=== PATIENT | female | born 1940 | race Caucasian/White ===

== ENCOUNTER → 2024-07-31 | Outpatient (CLI) | payer MEDICARE, BC, SELFPAY ==
[2024-07-31 11:09] LABS: Collection Type, Urine Clean Catch
[2024-07-31 11:31] LABS: Basophils # (Auto) 0.1 Thou/mm3 (0.0-0.2); Basophils % (Auto) 1 % (0-2.5); Eosinophils # (Auto) 0.4 Thou/mm3 (0.0-0.5); Eosinophils % (Auto) 6 % (0-10); Hematocrit 35.9 % (36.0-46.0); Hemoglobin 11.6 g/dL (12.0-16.0); Immature Granulocytes % (Auto) 1 % (0-0); Immature Granulocytes Auto 0.05 Thou/mm3 (0.00-0.00); Lymphocytes # (Auto) 1.1 Thou/mm3 (1.0-4.8); Lymphocytes % (Auto) 18 % (10-50); Mean Corpuscular HGB Conc 32.3 g/dl (31.0-37.0); Mean Corpuscular Hemoglobin 34.9 pg (25.0-35.0); Mean Corpuscular Volume 108 fL (80-100); Monocytes # (Auto) 0.9 Thou/mm3 (0.0-0.8); Monocytes % (Auto) 15 % (0-12); Neutrophils # (Auto) 3.6 Thou/mm3 (1.8-7.7); Neutrophils % (Auto) 59 % (37-80); Nucleated Red Blood Cell % 0 /100 WBC (0); Platelet Count 170 Thou/mm3 (140-440); RDW Standard Deviation 72.1 fL (36.4-46.3); Red Blood Count 3.32 Miln/mm3 (4.00-5.20); White Blood Count 6.1 Thou/mm3 (3.6-11.0)
[2024-07-31 11:37] LABS: Bilirubin,Urine Negative (Negative); Blood,Urine Negative (Negative); Clarity,Urine Clear (Clear/Hazy); Color,Urine Yellow (Lt Yel-Yel); Culture Indicated,Urine Not Indicated; Glucose, Urine Negative (Negative); Ketones,Urine Negative (Negative); Leukocyte Esterase,Urine Negative (Negative); Nitrite,Urine Negative (Negative); PH,Urine 8.5 (5.0-7.0); Protein,Urine 3+ (Neg - Trace); RBC,Urine < 1 /hpf (0-3); Specific Gravity,Urine 1.016 (1.001-1.035); Squamous Epithelial Cell,Urine 12 /hpf (0-5); Urobilinogen,Urine Negative mg/dL (0.0-1.0); WBC,Urine 7 /hpf (0-5)
[2024-07-31 12:04] LABS: Alanine Aminotransferase 8 U/L (10-49); Albumin, Serum 4.1 gm/dL (3.4-4.8); Albumin/Globulin Ratio 1.9 (1.2-2.2); Alkaline Phosphatase 143 U/L (46-116); Anion Gap 10 (7-16); Aspartate Amino Transferase 15 U/L (0-34); BUN/Creatinine Ratio 9 Ratio (12-20); Bilirubin,Total 0.3 mg/dL (0.3-1.2); Blood Urea Nitrogen 29 mg/dL (9-23); Calcium 8.9 mg/dL (8.3-10.6); Calcium (Corrected) 8.9 mg/dL (8.5-10.1); Carbon Dioxide 28.9 mMol/L (20.0-31.0); Cardiac Risk Estimate 3.7 RATIO (3.7-5.6); Chloride 101 mMol/L (98-107); Cholesterol 194 mg/dL (132-200); Creatinine (Component) 3.2 mg/dL (0.6-1.3); Free T4 (Free Thyroxine) 0.99 ng/dL (0.89-1.76); Globulin 2.2 gm/dL (2.3-3.5); Glucose 82 mg/dL (74-106); HDL Cholesterol 52 mg/dL (40-60); LDL Cholesterol,Calculated 113 mg/dL (0-130); Osmolality,Calculated 284 (275-295); Sodium 140 mMol/L (136-145); Thyroid Stimulating Hormone 4.95 uIU/mL (0.55-4.78); Total Protein 6.3 gm/dL (5.7-8.2); Triglycerides 144 mg/dL (30-150); eGFR 14 See Note
== END | disposition home or self-care (01) ==
LOC: COPL 10:16
PROVIDERS: PCP Internal Medicine; Referring Provider Internal Medicine; Visit Provider Internal Medicine
DX: I10 Essential (primary) hypertension (principal)
CPT/HCPCS: 36415; 80053; 80061; 81001; 84439; 84443; 85025

== ENCOUNTER 2024-09-15 18:01 | Inpatient (IN) | payer MEDICARE, BC, SELFPAY ==
[2024-09-15 18:02] VITALS: BP 182/72; PULSE 86; RESP 17; RESP 20; TEMP 36.9; O2SAT 96; O2SAT 97; BMI 24.8
--- NOTE | 2024-09-15 18:03 | XR_ITS ---
Examination: CT pelvis without intravenous contrast. 2-D sagittal and coronal reconstructions. Date and time of exam:September 15, 2024 at 1858 hours INDICATIONS: Patient fell today with injury to the right hip, right hip pain CTDI: vol (mGy) :5.96 DLP: (mGycm) : 176 Technique: Multiple 3 mm axial sections of the pelvis have been obtained with the 64 slice high resolution scanner. 2-D sagittal and coronal reconstructions. Low dose protocols were performed. One or more of the following dose reduction techniques were used; automated exposure control, adjustment of the mA and/or KV according to patient size, use of iterative reconstruction technique. Findings: Severe osteopenia Iliac bones acetabular region anterior rami intact Acute fractures greater trochanter right hip without obvious extension to the intertrochanteric region Urinary bladder is contracted No pelvic hematoma IMPRESSION: Acute fractures greater trochanter right hip No definite intertrochanteric extension, however, MRI right hip without contrast follow-up would best exclude intertrochanteric extension of the right hip fractures
--- NOTE | 2024-09-15 18:03 | XR_ITS ---
Examination: AP chest supine portable single view TECHNIQUE: Supine AP portable chest single view Date and time: September 15, 2024 1935 hours Comparison March 05, 2024 INDICATIONS: Patient fell today with injury of the chest, chest pain hip pain FINDINGS: Subsegmental atelectasis left base Normal heart size No pneumothorax Severe osteopenia IMPRESSION: No pneumothorax or pulmonary contusion
--- NOTE | 2024-09-15 18:03 | XR_ITS ---
Examination:Right hip AP, lateral, AP pelvis 3 views Technique: Hip AP lateral, AP pelvis, 3 views Exam date and time:September 15, 2024 at 1926 hours INDICATIONS: Patient fell today with injury to the right hip, right hip pain. FINDINGS: Acute fractures greater trochanteric region right hip No hip dislocation Radiolucency overlies intertrochanteric region left hip although on the CT examination today no left intertrochanteric fracture is depicted IMPRESSION: Acute fractures greater trochanter right hip MRI right hip without contrast follow-up would best exclude intertrochanteric extension of these right hip fracture.
--- NOTE | 2024-09-15 18:03 | EKG_ITS ---
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
--- NOTE | 2024-09-15 18:03 | XR_ITS ---
Examination: CT brain head without contrast. 2-D sagittal coronal reconstructions Date and time of exam:September 15, 2024 1851 hours INDICATIONS: Right-sided head and facial pain after falling today COMPARISON: March 06, 2024 CTDI: vol (mGy):47.7 DLP: (mGycm):949 Technique: Multiple CT axial sections of the brain have been obtained, 5 mm slice thickness. Contrast has not been administered. 2-D sagittal, coronal reconstructions have been obtained Low dose protocols were performed. One or more of the following dose reduction techniques were used; automated exposure control, adjustment of the mA and/or KV according to patient size, use of iterative reconstruction technique. Findings: No significant ventricular enlargement. 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 No mass effect or midline shift Basal cisterns are not remarkable. Fourth ventricle is midline. Cranial vault intact. Impression: Negative for acute hemorrhage, mass effect or midline shift
--- NOTE | 2024-09-15 18:03 | XR_ITS ---
Examination: CT cervical spine without contrast 2-D sagittal reconstructions 2-D coronal reconstructions 3-D reconstructions. Exam date and time:September 15, 2024 1841 hours INDICATION: Patient fell today with injuries and neck, neck pain CTDI:vol (mGy) 12.5 DLP: (mGycm) 259 Technique: Multiple 2 mm axial sections of the cervical spine have been obtained. The coronal and sagittal reconstructions have been obtained. 3-D reconstructions have been obtained. Low dose protocols were performed. One or more of the following dose reduction techniques were used; automated exposure control, adjustment of the mA and/or KV according to patient size, use of iterative reconstruction technique. Findings: Axial sections demonstrate intact base of the skull. C1 exhibit satisfactory relationship to the odontoid. No acute cervical vertebral body fracture seen. Alignment posterior spinous processes satisfactory. Impression: No acute cervical fracture.
--- NOTE | 2024-09-15 18:06 | PD.EDADULT ---
ED General RME/HPI General Chief complaint: Fall Stated complaint: FALL Time Seen by Provider: 09/15/24 18:02 Arrival date/time: 09/15/24 18:01 CC: Right hip pain right face pain HPI after ground level fall approximately 30 minutes ago patient does take a baby aspirin. Patient states she pivoted in the kitchen and promptly fell denies LOC states she lost her balance. Patient is on dialysis Monday and Monday Dr Ramirez is her preparer making department Dr. Walker her mounter flutes and piccolos. Patient is awake alert oriented localized pain in the hip is a 2 when at rest and a 10 when attempting to flex her knee. EMS report hypertension otherwise vital signs are stable. Related Data Home Medications ?Medication ?Instructions ?Recorded ?Confirmed allopurinol 100 mg tablet 100 mg PO QDAY #0 tabs 09/13/13 03/05/24 (Zyloprim) amlodipine 5 mg tablet (Norvasc) 10 mg PO QDAY #0 tabs 09/13/13 03/05/24 fluticasone propionate 50 2 spray NASAL BID ##0 09/13/13 03/05/24 mcg/actuation nasal spray,suspension montelukast 10 mg tablet 10 mg PO QAM #0 tabs 09/13/13 03/05/24 (Singulair) primidone 50 mg tablet 250 mg PO QDAY #0 tabs 09/13/13 03/05/24 losartan 100 mg tablet 100 mg PO QDAY 02/22/19 03/05/24 Held on 03/06/24. Instructions: Resume on 03/20/24. hold until see her PCP alirocumab 75 mg/mL subcutaneous 75 mg subcut UD 08/19/22 03/05/24 pen injector (Praluent Pen) aspirin 81 mg tablet,delayed 81 mg PO QDAY 08/19/22 03/05/24 release vortioxetine 20 mg tablet 20 mg PO QDAY 08/19/22 03/05/24 (Trintellix) hydralazine 50 mg tablet 50 mg PO BID 09/12/22 03/05/24 Held on 03/06/24. Instructions: Resume on 03/20/24. hold until see her PCP carvedilol 25 mg tablet 25 mg PO BID 03/05/24 03/05/24 Allergies Allergy/AdvReac Type Severity Reaction Status Date / Time atorvastatin (From Lipitor) Allergy Severe Swelling Verified 09/15/24 18:07 of Lip/Tongue/Throat cefuroxime Allergy Severe RASH/ Verified 09/15/24 18:07 DIARRHEA cephalexin Allergy Severe RASH/NAUSEA Verified 09/15/24 18:07 /VOMITING Cephalosporins Allergy Severe Rash Verified 09/15/24 18:07 ciprofloxacin Allergy Severe Rash Verified 09/15/24 18:07 erythromycin base Allergy Severe Rash Verified 09/15/24 18:07 nitrofurantoin Allergy Severe Rash Verified 09/15/24 18:07 Penicillins Allergy Severe Rash Verified 09/15/24 18:07 Sulfa (Sulfonamide Allergy Severe Rash Verified 09/15/24 18:07 Antibiotics) NITRATE Allergy Severe Rash Uncoded 09/15/24 18:07 Review of Systems Review of Systems Narrative Review of Systems: GEN: No fever, no chills, no weight loss EYES: No discharge, no visual changes, no pain HEENT: No ear pain, no congestion, no sore throat PULM: No shortness of breath, no cough, no congestion CV: No chest pain, no dyspnea on exertion, no palpitations GI: No nausea, no vomiting, no diarrhea, no pain, no constipation : No frequency, no urgency, no dysuria MUSC/SKEL: + joint pain, no back pain SKIN: No rash PSYCH: No hallucinations, no depression HEME/LYMPH: No easy bleeding or bruising tendencies NEURO: No weakness, no headache Past Medical History Past Medical History NEUROLOGIC: Positive Neurological Disorders (benign tremor) and Transient Ischemic Attacks (TIA); Negative Seizures CARDIAC: Positive Cardiac Disorders, Hypercholesterolemia, Congestive Heart Failure, Valvular Heart Disease and Hypertension RESPIRATORY: Negative Chronic Obstructive Pulmonary Disease (COPD) GASTROINTESTINAL: Positive Gastrointestinal Disorders, Gall Bladder Disease, Colitis and Hiatal Hernia GENITOURINARY: Positive Genitourinary Disorders, Renal Disease and Dialysis (--MON) REPRODUCTIVE: Positive Previous Pregnancies; Negative Pelvic Inflammatory Disease MUSCULOSKELETAL: Positive Musculoskeletal Disorders, Arthritis and Gout ENDOCRINE: Negative Endocrine Disorders, Diabetes Mellitus Type 1 or Diabetes Mellitus Type 2 HEMATOLOGIC: Positive Anemia; Negative Blood Disorders PSYCHO/SOCIAL: Positive Depression and Anxiety OTHER HISTORY: Positive Hospitalization, Shingles, Falls, Chicken Pox, Measles and Mumps; Negative Autoimmune Disease, Blood Transfusions, Blood Transfusion Reaction, Anesthesia Reactions, MRSA, VRSA, Vancomycin-Resistant Enterococci, Clostridium Difficile or Cancer Family History FAMILY HISTORY: Positive Family Respiratory Disorders, Family Cardiac Disorders and Family Cancer Surgical History SURGICAL: Positive Ear Surgery, Tonsillectomy and Hysterectomy Social History SMOKING STATUS: Never smoker SUBSTANCE USE: does not use ED Exam Narrative Physical exam: [General: Frail but not deconditioned, in moderate discomfort but not in any acute distress Head normocephalic, no step-offs hematomas induration ulceration or crepitus. HEENT: Face: Patient has ecchymosis with hematomas to the right cheek, right lateral eyebrow. Eyes pupils are PERRLA EOMs are intact mouth pink dry membranes uvula is midline swallow symmetrical phonation is normal. All other subsystems of HEENT are within acceptable limits Neck is supple nontender no JVD no edema Chest equal chest rise nontender to palpation Respiratory: Clear to auscultation no wheezes crackles or rubs CV: Rate rhythm is regular no murmurs rubs or clicks Abdomen is soft nontender no masses positive bowel sounds all 4 quadrants Back initially unable to assess secondary to being in a supine position Skin: Ecchymosis with hematomas to the right side of the face as described above. minor abrasions to the face. Otherwise skin is intact no petechiae rash induration ulceration or crepitus Extremities: Moving upper, and lower extremity without complication. Decreased range of motion of the right lower extremity secondary to pain in the hip. Neuro: Awake alert oriented x2, person and place. Glascow coma 15 no focal deficits] Course Course Course Narrative: Patient's case discussed with Dr. Goss, orthopedic surgeon, who assessed the patient in the emergency room and would like to get an MRI on the patient in the morning for rule out intratrochanteric or femoral neck involvement. Patient's case discussed with Dr. Marcial, resident for Dr. Beckman, who agrees accept the patient for admission. Admission diagnosis R fall hip fracture UTI Quality Measures none Orders Category Date Time Status Admit to Inpatient Status Routine Admission 09/15/24 21:28 Active Patient Condition Routine Admission 09/15/24 21:29 Ordered COVID-19 Screening Questionnaire NOW Care 09/15/24 21:07 Active EKG (ED ONLY) *Do not use* NOW Care 09/15/24 18:03 Completed Intake and Output QSHIFT Care 09/15/24 21:30 Ordered MRI Screening NOW Care 09/15/24 20:41 Active Miscellaneous Nursing Order NOW Care 09/15/24 20:47 Active Miscellaneous Nursing Order NOW Care 09/15/24 21:29 Active Notify provider NEEDED Care 09/15/24 21:29 Active Obtain weight NOW Care 09/15/24 21:29 Active Saline [Insert IV] NOW Care 09/15/24 18:05 Active Sequential Compression Device QSHIFT Care 09/15/24 21:29 Active Consult to Nephrology Routine Cons 09/15/24 21:57 Ordered Consult to Orthopedic Stat Cons 09/15/24 20:43 Ordered Referral Physical Therapy Routine Cons 09/15/24 21:29 Active Referral Physical Therapy Stat Cons 09/15/24 20:[address] cervical spine wo con Stat Exams 09/15/24 18:[address] facial bones wo con Stat Exams 09/15/24 18:[address] head/brain wo con Stat Exams 09/15/24 18:[address] pelvis wo con Stat Exams 09/15/24 18:03 Completed EKG (ED Only) Stat Exams 09/15/24 18:03 Draft MR pelvis wo con Stat Exams 09/15/24 Ordered XR chest 1V Stat Exams 09/15/24 18:03 Completed XR hip RT w pelvis 2-3V Stat Exams 09/15/24 18:03 Completed B-Type Natriuretic Peptide Stat Lab 09/15/24 18:27 Completed Basic Metabolic Panel AM DRAW Lab 09/16/24 05:00 Ordered Basic Metabolic Panel AM DRAW Lab 09/17/24 05:00 Ordered Basic Metabolic Panel AM DRAW Lab 09/18/24 05:00 Ordered CBC AM DRAW Lab 09/16/24 05:00 Ordered CBC AM DRAW Lab 09/17/24 05:00 Ordered CBC AM DRAW Lab 09/18/24 05:00 Ordered CBC Stat Lab 09/15/24 18:27 Completed Comprehensive Metabolic Panel Stat Lab 09/15/24 18:27 Completed Drug Screen,Urine Stat Lab 09/15/24 18:50 Completed LDH (Lactate Dehydrogenase) Stat Lab 09/15/24 18:27 Completed Lipid Panel AM DRAW Lab 09/16/24 05:00 Ordered Liver Panel AM DRAW Lab 09/16/24 05:00 Ordered MRSA Nasal Screen Stat Lab 09/15/24 21:29 Ordered Magnesium AM DRAW Lab 09/16/24 05:00 Ordered Magnesium Stat Lab 09/15/24 18:27 Completed Partial Thromboplastin Time Stat Lab 09/15/24 18:27 Completed Phosphorous AM DRAW Lab 09/16/24 05:00 Ordered Prothrombin Time with INR AM DRAW Lab 09/16/24 05:00 Ordered Prothrombin Time with INR Stat Lab 09/15/24 18:27 Completed Thyroid Stimulating Hormone AM DRAW Lab 09/16/24 05:00 Ordered Troponin I Stat Lab 09/15/24 18:27 Completed Urinalysis Routine Lab 09/15/24 21:29 Ordered Urinalysis Stat Lab 09/15/24 18:50 Completed Acetaminophen Tab [Tylenol Tab] Med 09/15/24 21:28 Active 650 mg PO Q6H PRN Famotidine Inj [Pepcid Inj] Med 09/16/24 09:00 Active 20 mg IVP DAILY Heparin Inj Med 09/15/24 22:00 Active 5,000 unit SC Q8HR Morphine Inj Med 09/15/24 21:31 Active 4 mg IVP Q4HR PRN Morphine Inj Med 09/15/24 19:17 Discontinued 4 mg IVP X1 ONE Ondansetron Inj [Zofran Inj] Med 09/15/24 21:28 Active 4 mg IV Q6H PRN Ondansetron Inj [Zofran Inj] Med 09/15/24 19:17 Discontinued 4 mg IV X1 ONE Primidone [Mysoline] Med 09/16/24 09:00 Active 250 mg PO QDAY Senna [Senokot] Med 09/15/24 21:28 Active 2 tab PO BID PRN allopurinoL [Zyloprim] Med 09/16/24 09:00 Active 100 mg PO QDAY amLODIPine BESYLATE [Norvasc] Med 09/16/24 09:00 Active 10 mg PO QDAY carVEDILOL [Coreg] Med 09/16/24 09:00 Discontinued 25 mg PO BID carVEDILOL [Coreg] Med 09/16/24 21:52 Active 25 mg PO BID fentaNYL INJ [Sublimaze Inj] Med 09/15/24 18:05 Discontinued 50 mcg IVP X1 ONE hydrALAZINE HCL [Apresoline] Med 09/16/24 09:00 Discontinued 50 mg PO BID hydrALAZINE HCL [Apresoline] Med 09/16/24 21:52 Active 50 mg PO BID Code Status Routine Oth 09/15/24 21:28 Ordered Oxygen Delivery DAILY RT 09/15/24 21:29 Active Vital Signs Vital signs: Vital Signs Temperature 98.4 F 09/15/24 18:02 Pulse Rate 86 09/15/24 18:02 Respiratory Rate 17 09/15/24 18:02 Blood Pressure 182/72 H 09/15/24 18:02 Pulse Oximetry (%) 97 09/15/24 18:02 Oxygen Delivery Method Room Air 09/15/24 18:02 Discharge Plan Plan Patient Disposition: Other Care w/in Hosp (SDC/MI) Patient condition on transfer: Stable Prescriptions/Referrals Prescriptions/Med Rec: No Action primidone 50 MG tablet 250 mg PO QDAY Qty: 0 Rx Instructions: 100MG X1 IN AM, X2 IN THE PM amlodipine [Norvasc] 5 MG tablet 10 mg PO QDAY Qty: 0 allopurinol [Zyloprim] 100 MG tablet 100 mg PO QDAY Qty: 0 montelukast [Singulair] 10 MG tablet 10 mg PO QAM Qty: 0 fluticasone propionate 50 mcg/actuation [place],Suspension 2 spray NASAL BID Qty: 0 Rx Instructions: 2 SPRAYS AT NIGHT losartan 100 mg Tablet 100 mg PO QDAY hydralazine 50 mg tablet 50 mg PO BID Rx Instructions: Only on the mornings when she does not go to dialysis. Trintellix 20 mg tablet 20 mg PO QDAY Patient Comments: TAKE 1 TABLET BY MOUTH EVERY DAY aspirin 81 mg Tablet,Delayed Release (Dr/Ec) 81 mg PO QDAY Praluent Pen 75 mg/mL pen injector 75 mg SUBCUT UD Patient Comments: INJECT 1 DOSE UNDER THE SKIN EVERY 2 WEEKS Rx Instructions: Every two weeks carvedilol 25 mg Tablet 25 mg PO BID Rx Instructions: must administer with a meal/food Referrals: No Primary/Family,Physician [Primary Care Provider] - In 1 week Problem List Clinical Impression: Hip fracture, Urinary tract infection, Fall, Contusion of face Patient/Caregiver Discharge Instructions Print Language: Khmer Stand Alone Forms: Adri Award Info., Patient Portal Info Letter MDM Clinical Information Provided by: patient and EMS Medical Records reviewed [facility] Meds/Rx considered, not ordered None Labs/Rad/Tests considered, not ordered None Chronic Illness/Social Conditions Explain: ESRD hypertension dialysis Monday Labs Labs: interpreted by me Lab(s) Interpretation(s): CBC shows no acute leukocytosis anemia thrombocytopenia Coags within acceptable notes CMP shows sodium 134 BUN of 27 creatinine 4.2 glucose 105 no other electrolyte imbalances, no transaminitis or T. bili elevation Troponin is negative BNP is 273 Urine is turbid 3+ protein 392 WBC 6 RBCs 2+ bacteria leukocyte Estrace positive nitrites negative. UDS is positive for bit barbiturates. Imaging Imaging interpretation: interpreted by me Imaging Interpretation(s): CT of the pelvis and x-ray of the pelvis show a trochanteric fracture unconfirmed as to whether this is intertrochanteric. I discussed this with Dr. Goss who agrees patient is an MRI in the morning confirmed that there is no intertrochanteric or femoral neck fracture. CT of the head C-spine and face are negative for any acute findings that require emergent or immediate intervention as interpreted by me read by radiology. Chest x-ray is negative as interpreted by me read by radiology. Medication Administration(s) Medication Administration History Acetaminophen (Acetaminophen 325 Mg Tablet) 650 mg PO Q6H PRN PRN Reason: PAIN OR FEVER > 101 Stop: 10/15/24 21:27 Allopurinol (Allopurinol 100 Mg Tablet) 100 mg PO QDAY CALEB Stop: 10/16/24 08:59 Amlodipine Besylate (Amlodipine Besylate 5 Mg Tablet) 10 mg PO QDAY CALEB Stop: 10/16/24 08:59 Carvedilol (Carvedilol 12.5 Mg Tablet) 25 mg PO BID CALEB Stop: 10/16/24 21:51 Famotidine (Famotidine Inj 10 Mg/Ml Vial 2 Ml) 20 mg IVP DAILY CALEB Stop: 10/16/24 08:59 Heparin Sodium (Porcine) (Heparin Sod Inj 5000 Unit/Ml Vial) 5,000 unit SC Q8HR CALEB Stop: 09/29/24 21:59 Last Admin: 09/15/24 21:52 Dose: 5,000 unit Documented By: CB Co-signed By: JAIDEN Hydralazine HCl (Hydralazine Hcl 25 Mg Tablet) 50 mg PO BID [facility] Stop: 10/16/24 21:51 Morphine Sulfate (Morphine Sulf Inj 10 Mg/Ml Vial) 4 mg IVP Q4HR PRN PRN Reason: PAIN SCALE 4-10(Mod-Sev Last Admin: 09/15/24 21:52 Dose: 4 mg Documented By: IKKI Ondansetron HCl (Ondansetron Inj 2 Mg/Ml Inj 2 Ml) 4 mg IV Q6H PRN; Protocol PRN Reason: NAUSEA OR VOMITING Stop: 10/15/24 21:27 Last Admin: 09/15/24 21:53 Dose: 4 mg Documented By: KIKI Primidone (Primidone 50 Mg Tablet) 250 mg PO QDAY [facility] Stop: 09/21/24 08:59 Sennosides (Senna Tablet) 2 tab PO BID PRN; Protocol PRN Reason: CONSTIPATION Stop: 10/15/24 21:27 Discontinued Medications Carvedilol (Carvedilol 12.5 Mg Tablet) 25 mg PO BID [facility] Stop: 10/16/24 08:59 Fentanyl Citrate (Fentanyl Cit Inj 50 Mcg/Ml Amp 2ml) 50 mcg IVP X1 ONE Stop: 09/15/24 18:06 Last Admin: 09/15/24 18:35 Dose: 50 mcg Documented By: MILLER Hydralazine HCl (Hydralazine Hcl 25 Mg Tablet) 50 mg PO BID [facility] Stop: 10/16/24 08:59 Morphine Sulfate (Morphine Sulf Inj 10 Mg/Ml Vial) 4 mg IVP X1 ONE Stop: 09/15/24 19:18 Last Admin: 09/15/24 19:30 Dose: 4 mg Documented By: MILLER Ondansetron HCl (Ondansetron Inj 2 Mg/Ml Inj 2 Ml) 4 mg IV X1 ONE; Protocol Stop: 09/15/24 19:18 Last Admin: 09/15/24 19:27 Dose: 4 mg Documented By: MILLER
--- NOTE | 2024-09-15 18:30 | XR_ITS ---
Examination: CT maxillofacial, without intravenous contrast. 2-D sagittal reconstructions. 3-D reconstructions. Date and time of exam:September 15, 2024 1845 hours INDICATIONS: Patient fell today with injury of the face, facial pain CTDI: vol (mGy):19 DLP: (mGycm):368 Technique: Multiple axial images of maxillofacial region, 3.0 mm slice thickness. 2-D sagittal and coronal reconstructions. 3-D reconstructions. Low dose protocols were performed. One or more of the following dose reduction techniques were used; automated exposure control, adjustment of the mA and/or KV according to patient size, use of iterative reconstruction technique. Findings: Frontal bone is intact Orbital rims intact No depression zygomatic arches No nasal bone fracture Pterygoid plates maxilla and mandible are intact Small exostoses off the anterior internal right body of the mandible axial image 34. IMPRESSION: No acute facial fracture
[2024-09-15 18:33] LABS: Basophils # (Auto) 0.1 Thou/mm3 (0.0-0.2); Basophils % (Auto) 1 % (0-2.5); Eosinophils # (Auto) 0.4 Thou/mm3 (0.0-0.5); Eosinophils % (Auto) 4 % (0-10); Hematocrit 39.3 % (36.0-46.0); Hemoglobin 13.4 g/dL (12.0-16.0); Immature Granulocytes % (Auto) 1 % (0-0); Immature Granulocytes Auto 0.06 Thou/mm3 (0.00-0.00); Lymphocytes # (Auto) 1.4 Thou/mm3 (1.0-4.8); Lymphocytes % (Auto) 16 % (10-50); Mean Corpuscular HGB Conc 34.1 g/dl (31.0-37.0); Mean Corpuscular Hemoglobin 35.4 pg (25.0-35.0); Mean Corpuscular Volume 104 fL (80-100); Monocytes # (Auto) 1.1 Thou/mm3 (0.0-0.8); Monocytes % (Auto) 12 % (0-12); Neutrophils % (Auto) 67 % (37-80); Nucleated Red Blood Cell % 0 /100 WBC (0); Platelet Count 143 Thou/mm3 (140-440); RDW Standard Deviation 61.2 fL (36.4-46.3); Red Blood Count 3.78 Miln/mm3 (4.00-5.20); White Blood Count 8.9 Thou/mm3 (3.6-11.0)
[2024-09-15] MEDS: fentaNYL CIT INJ 50 mCg/ML AMP 2ML IVP (18:35)
[2024-09-15 18:48] LABS: Partial Thromboplastin Time 29.9 Seconds (22.0-36.0); Prothrombin Time 11.2 Seconds (9.0-12.2)
[2024-09-15 18:52] LABS: B-Type Natriuretic Peptide 273 pg/mL (0-100)
[2024-09-15 18:54] LABS: Collection Type, Urine Clean Catch
[2024-09-15] MEDS: ONDANSETRON INJ 2 MG/ML INJ 2 ML 4 MG IV ×2 (19:27→21:53)
[2024-09-15] MEDS: MORPHINE SULF INJ 10 MG/ML VIAL 4 MG IVP ×2 (19:30→21:52)
[2024-09-15 19:40] LABS: Amphetamine/Methamp Scrn,U Negative (Negative); Bacteria,Urine 2+; Barbiturate Screen,Urine Positive (Negative); Benzodiazepines Screen,Urine Negative (Negative); Benzoylecgonine Screen, Ur Negative (Negative); Bilirubin,Urine Negative (Negative); Blood,Urine Trace (Negative); Color,Urine Yellow (Lt Yel-Yel); Fentanyl Screen,Urine Negative (Negative); Glucose, Urine Negative (Negative); Hyaline Casts,Urine < 1 /hpf (0-1); Ketones,Urine Negative (Negative); Leukocyte Esterase,Urine Positive (Negative); Nitrite,Urine Negative (Negative); Opiate Screen,Urine Negative (Negative); PH,Urine 6.5 (5.0-7.0); Protein,Urine 3+ (Neg - Trace); RBC,Urine 6 /hpf (0-3); Specific Gravity,Urine 1.018 (1.001-1.035); Squamous Epithelial Cell,Urine 3 /hpf (0-5); THC Screen,Urine Negative (Negative); WBC,Urine 392 /hpf (0-5)
[2024-09-15 19:41] LABS: Clarity,Urine Turbid (Clear/Hazy)
[2024-09-15 19:42] LABS: Alanine Aminotransferase 12 U/L (10-49); Albumin, Serum 4.3 gm/dL (3.4-4.8); Albumin/Globulin Ratio 1.8 (1.2-2.2); Alkaline Phosphatase 147 U/L (46-116); Anion Gap 10 (7-16); Aspartate Amino Transferase 19 U/L (0-34); BUN/Creatinine Ratio 6 Ratio (12-20); Bilirubin,Total 0.3 mg/dL (0.3-1.2); Blood Urea Nitrogen 27 mg/dL (9-23); Calcium 9.3 mg/dL (8.3-10.6); Calcium (Corrected) 9.3 mg/dL (8.5-10.1); Chloride 98 mMol/L (98-107); Creatinine (Component) 4.2 mg/dL (0.6-1.3); Estimated Creatinine Clearance 7.5 mL/min (>60); Globulin 2.4 gm/dL (2.3-3.5); Glucose 105 mg/dL (74-106); LDH (Lactate Dehydrogenase) 237 U/L (120-246); Magnesium 1.9 mg/dL (1.6-2.6); Osmolality,Calculated 273 (275-295); Potassium 3.6 mMol/L (3.4-5.1); Sodium 134 mMol/L (136-145); Total Protein 6.7 gm/dL (5.7-8.2); Troponin I < 0.020 ng/mL (0.0-0.045); eGFR 10 See Note
[2024-09-15 19:56] VITALS: BP 145/71; PULSE 79; RESP 20; TEMP 36.8; O2SAT 96
--- NOTE | 2024-09-15 20:43 | PD.ORTHCON ---
HPI Consult details Reason for consultation narrative: Pain right hip History of present illness: Very nice 84-year-old who was turning around in her apartment and lost her balance striking the right side of her body including right face right elbow right hip right knee right leg Past Medical History Past Medical History NEUROLOGIC: Positive Neurological Disorders and Transient Ischemic Attacks (TIA); Negative Seizures CARDIAC: Positive Cardiac Disorders, Hypercholesterolemia, Congestive Heart Failure, Valvular Heart Disease and Hypertension RESPIRATORY: Negative Chronic Obstructive Pulmonary Disease (COPD) GASTROINTESTINAL: Positive Gastrointestinal Disorders, Gall Bladder Disease, Colitis and Hiatal Hernia GENITOURINARY: Positive Genitourinary Disorders, Renal Disease and Dialysis REPRODUCTIVE: Positive Previous Pregnancies; Negative Pelvic Inflammatory Disease MUSCULOSKELETAL: Positive Musculoskeletal Disorders, Arthritis and Gout ENDOCRINE: Negative Endocrine Disorders, Diabetes Mellitus Type 1 or Diabetes Mellitus Type 2 HEMATOLOGIC: Positive Anemia; Negative Blood Disorders PSYCHO/SOCIAL: Positive Depression and Anxiety OTHER HISTORY: Positive Hospitalization, Shingles, Falls, Chicken Pox, Measles and Mumps; Negative Autoimmune Disease, Blood Transfusions, Blood Transfusion Reaction, Anesthesia Reactions, MRSA, VRSA, Vancomycin-Resistant Enterococci, Clostridium Difficile or Cancer Family History FAMILY HISTORY: Positive Family Respiratory Disorders, Family Cardiac Disorders and Family Cancer Surgical History SURGICAL: Positive Ear Surgery, Tonsillectomy and Hysterectomy Social History SMOKING STATUS: Never smoker SUBSTANCE USE: does not use Meds Home Medications and Allergies Home Medications ?Medication ?Instructions ?Recorded ?Confirmed ?Type allopurinol 100 mg tablet 100 mg PO QDAY #0 tabs 09/13/13 03/05/24 History (Zyloprim) amlodipine 5 mg tablet (Norvasc) 10 mg PO QDAY #0 tabs 09/13/13 03/05/24 History fluticasone propionate 50 2 spray NASAL BID ##0 09/13/13 03/05/24 History mcg/actuation nasal spray,suspension montelukast 10 mg tablet 10 mg PO QAM #0 tabs 09/13/13 03/05/24 History (Singulair) primidone 50 mg tablet 250 mg PO QDAY #0 tabs 09/13/13 03/05/24 History losartan 100 mg tablet 100 mg PO QDAY 02/22/19 03/05/24 History Held on 03/06/24. Instructions: Resume on 03/20/24. hold until see her PCP alirocumab 75 mg/mL subcutaneous 75 mg subcut UD 08/19/22 03/05/24 History pen injector (Praluent Pen) aspirin 81 mg tablet,delayed 81 mg PO QDAY 08/19/22 03/05/24 History release vortioxetine 20 mg tablet 20 mg PO QDAY 08/19/22 03/05/24 History (Trintellix) hydralazine 50 mg tablet 50 mg PO BID 09/12/22 03/05/24 History Held on 03/06/24. Instructions: Resume on 03/20/24. hold until see her PCP carvedilol 25 mg tablet 25 mg PO BID 03/05/24 03/05/24 History Allergies Allergy/AdvReac Type Severity Reaction Status Date / Time atorvastatin (From Lipitor) Allergy Severe Swelling Verified 09/15/24 18:07 of Lip/Tongue/Throat cefuroxime Allergy Severe RASH/ Verified 09/15/24 18:07 DIARRHEA cephalexin Allergy Severe RASH/NAUSEA Verified 09/15/24 18:07 /VOMITING Cephalosporins Allergy Severe Rash Verified 09/15/24 18:07 ciprofloxacin Allergy Severe Rash Verified 09/15/24 18:07 erythromycin base Allergy Severe Rash Verified 09/15/24 18:07 nitrofurantoin Allergy Severe Rash Verified 09/15/24 18:07 Penicillins Allergy Severe Rash Verified 09/15/24 18:07 Sulfa (Sulfonamide Allergy Severe Rash Verified 09/15/24 18:07 Antibiotics) NITRATE Allergy Severe Rash Uncoded 09/15/24 18:07 Exam Vital Signs Temp Pulse Resp BP Pulse Ox O2 Del Method 98.2 F 79 20 145/71 H 96 Room Air 09/15/24 19:56 09/15/24 19:56 09/15/24 19:56 09/15/24 19:56 09/15/24 19:56 09/15/24 19:56 Vital signs stable Narrative Exam Alert very present and pleasant lady who does not look her stated age. She is able to give a good history of what happened. Ecchymosis right malar eminence conjugate vision tongue midline moves head [id number] easily. Moves both shoulders elbows wrist hands and fingers. Abrasions right elbow right forearm covered with dressing. No chest or abdominal discomfort. She is able to straight leg raise right lower extremity. Pain greater trochanter. Pain no pain in right hip girdle. Ecchymosis minimal right knee with an effusion does have pain to palpation medial lateral collateral ligaments and in the area of the patellofemoral joint she is able to flex and extend the right knee. Good active flexion tension of right ankle right foot DP PT pulses not palpable but foot warm sensation intact Results - Ortho Labs 09/15/24 18:27 09/15/24 18:27 Labs: Short CBC 09/15/24 Range/Units 18:27 WBC 8.9 (3.6-11.0) Thou/mm3 Hgb 13.4 (12.0-16.0) g/dL Hct 39.3 (36.0-46.0) % Plt Count 143 (140-440) Thou/mm3 BMP 09/15/24 18:27 Sodium 134 L Potassium 3.6 Chloride 98 Carbon Dioxide 26.0 BUN 27 H Creatinine 4.2 H* Glucose 105 Calcium 9.3 Cardiac Enzymes 09/15/24 Range/Units 18:27 Troponin I < 0.020 (0.0-0.045) ng/mL Liver Function 09/15/24 Range/Units 18:27 Total Bilirubin 0.3 (0.3-1.2) mg/dL AST 19 (0-34) U/L ALT 12 (10-49) U/L Alkaline Phosphatase 147 H (46-116) U/L Albumin 4.3 (3.4-4.8) gm/dL Urine 09/15/24 Range/Units 18:50 Urine Color Yellow (Lt Yel-Yel) Urine Clarity Turbid A (Clear/Hazy) Urine pH 6.5 (5.0-7.0) Ur Specific [place] 1.018 (1.001-1.035) Urine Protein 3+ A (Neg - Trace) Urine Glucose (UA) Negative (Negative) Elevated creatinine. Dialysis 3 times a week. Sodium 134, potassium 3.6, BUN 27 Assessment & Plan Additional Assessment Additional comments: Right greater trochanteric fracture on CT scan. There may be a tiny wrinkle and the superior femoral neck and she has no pain in this area. I think it would be a good idea to bring her in and get an MRI scan pelvis. Does have pain right knee with no instability. Plan MRI scan right hip (pelvis) in a.m.
[2024-09-15 21:30] VITALS: BP 173/96; PULSE 77; RESP 17; TEMP 36.8; O2SAT 100
--- NOTE | 2024-09-15 21:35 | PD.RESHP ---
Documentation for date of: 09/15/24 HPI History of Present Illness History of present illness: Patient is an 84-year-old female, past medical history of end-stage renal disease on hemodialysis TTS, ischemic CVA, hypertension, gout who was brought into the ER after he slipped and fell. Patient reported she has been having frequent falls lately, she feels like she loses her balance, but denied passing out or seizure, denied dizziness or vertigo, but sometimes she still feels weak and trips over furniture. Today patient turned quickly to try to turn off a light and slipped and hit her face on the wall and then fell down, the patient's right side of the head, orbit, face, right arm and right hip are bruised up, initial imaging showed hip fracture, negative CT head for acute hemorrhage or subdural hematoma, negative C-spine for fracture. Orthopedic surgeon Dr. Orona was consulted who recommended to admit the patient to get an MRI pelvis for further assessment of hip fracture. Patient denies any chest pain, shortness of breath, localized weakness, nausea or vomiting. Patient endorses 1-2 loose bowel movements every day, takes Imodium occasionally. Patient denied any burning urination or difficulty peeing. Past medical history: ESRD on HD Monday, followed by Dr. Ramirez. History of CVA, on baby aspirin, follows nursing support worker Dr. Antunez, hypertension on multiple antihypertensives including carvedilol, hydralazine and amlodipine. History of gout on allopurinol. Past surgical history: Hysterectomy, tonsillectomy Social history: Denies smoking and drinking Review of Systems Review of Systems Systems Reviewed: All systems reviewed, normal except as documented Narrative Review of Systems: Patient denies any chest pain, shortness of breath, localized weakness, nausea or vomiting. Patient endorses 1-2 loose bowel movements every day, takes Imodium occasionally. Patient denied any burning urination or difficulty peeing. Past Medical History Past Medical History NEUROLOGIC: Positive Neurological Disorders and Transient Ischemic Attacks (TIA); Negative Seizures CARDIAC: Positive Cardiac Disorders, Hypercholesterolemia, Congestive Heart Failure, Valvular Heart Disease and Hypertension RESPIRATORY: Negative Chronic Obstructive Pulmonary Disease (COPD) GASTROINTESTINAL: Positive Gastrointestinal Disorders, Gall Bladder Disease, Colitis and Hiatal Hernia GENITOURINARY: Positive Genitourinary Disorders, Renal Disease and Dialysis REPRODUCTIVE: Positive Previous Pregnancies; Negative Pelvic Inflammatory Disease MUSCULOSKELETAL: Positive Musculoskeletal Disorders, Arthritis and Gout ENDOCRINE: Negative Endocrine Disorders, Diabetes Mellitus Type 1 or Diabetes Mellitus Type 2 HEMATOLOGIC: Positive Anemia; Negative Blood Disorders PSYCHO/SOCIAL: Positive Depression and Anxiety OTHER HISTORY: Positive Hospitalization, Shingles, Falls, Chicken Pox, Measles and Mumps; Negative Autoimmune Disease, Blood Transfusions, Blood Transfusion Reaction, Anesthesia Reactions, MRSA, VRSA, Vancomycin-Resistant Enterococci, Clostridium Difficile or Cancer Family History FAMILY HISTORY: Positive Family Respiratory Disorders, Family Cardiac Disorders and Family Cancer Surgical History SURGICAL: Positive Ear Surgery, Tonsillectomy and Hysterectomy Social History SMOKING STATUS: Never smoker SUBSTANCE USE: does not use Exam Vital Signs Temp Pulse Resp BP Pulse Ox O2 Del Method 98.3 F 77 17 173/96 H 100 Room Air 09/15/24 21:30 09/15/24 21:30 09/15/24 21:30 09/15/24 21:30 09/15/24 21:30 09/15/24 21:30 Narrative Exam General: AOx3, cooperative, in mild distress due to pain Skin: Intact, no cyanosis or edema noted. Noted multiple bruises right side of face and maxilla right orbit, right arm is Scraped up and bandaged, bruises right hip and lower extremity. HEENT: Atraumatic/normocephalic, NAMAN, neck supple Heart: RRR, S1 and S2 systolic murmur Lungs: Clear on auscultation bilaterally, no difficulty breathing Abdomen: Soft, nontender. Bowel sounds present . Vascular: Peripheral pulses palpable Neuro: No focal neurological deficits noted. Results: Labs 09/15/24 18:27 09/15/24 18:27 Labs: Short CBC 09/15/24 Range/Units 18: WBC 8.9 (3.6-11.0) Thou/mm3 Hgb 13.4 (12.0-16.0) g/dL Hct 39.3 (36.0-46.0) % Plt Count 143 (140-440) Thou/mm3 BMP 09/15/24 18: Sodium 134 L Potassium 3.6 Chloride 98 Carbon Dioxide 26.0 BUN 27 H Creatinine 4.2 H* Glucose 105 Calcium 9.3 Cardiac Enzymes 09/15/24 Range/Units 18: Troponin I < 0.020 (0.0-0.045) ng/mL Liver Function 09/15/24 Range/Units 18:27 Total Bilirubin 0.3 (0.3-1.2) mg/dL AST 19 (0-34) U/L ALT 12 (10-49) U/L Alkaline Phosphatase 147 H (46-116) U/L Albumin 4.3 (3.4-4.8) gm/dL Urine 09/15/24 Range/Units 18:50 Urine Color Yellow (Lt Yel-Yel) Urine Clarity Turbid A (Clear/Hazy) Urine pH 6.5 (5.0-7.0) Ur Specific [place] 1.018 (1.001-1.035) Urine Protein 3+ A (Neg - Trace) Urine Glucose (UA) Negative (Negative) Quality Measures Quality Measures VTE prophylaxis Advance care planning discussed with:: patient Medications Home Medications and Allergies Home Medications ?Medication ?Instructions ?Recorded ?Confirmed ?Type allopurinol 100 mg tablet 100 mg PO QDAY #0 tabs 09/13/13 03/05/24 History (Zyloprim) amlodipine 5 mg tablet (Norvasc) 10 mg PO QDAY #0 tabs 09/13/13 03/05/24 History fluticasone propionate 50 2 spray NASAL BID ##0 09/13/13 03/05/24 History mcg/actuation nasal spray,suspension montelukast 10 mg tablet 10 mg PO QAM #0 tabs 09/13/13 03/05/24 History (Singulair) primidone 50 mg tablet 250 mg PO QDAY #0 tabs 09/13/13 03/05/24 History losartan 100 mg tablet 100 mg PO QDAY 02/22/19 03/05/24 History Held on 03/06/24. Instructions: Resume on 03/20/24. hold until see her PCP alirocumab 75 mg/mL subcutaneous 75 mg subcut UD 08/19/22 03/05/24 History pen injector (Praluent Pen) aspirin 81 mg tablet,delayed 81 mg PO QDAY 08/19/22 03/05/24 History release vortioxetine 20 mg tablet 20 mg PO QDAY 08/19/22 03/05/24 History (Trintellix) hydralazine 50 mg tablet 50 mg PO BID 09/12/22 03/05/24 History Held on 03/06/24. Instructions: Resume on 03/20/24. hold until see her PCP carvedilol 25 mg tablet 25 mg PO BID 03/05/24 03/05/24 History Allergies Allergy/AdvReac Type Severity Reaction Status Date / Time atorvastatin (From Lipitor) Allergy Severe Swelling Verified 09/15/24 18:07 of Lip/Tongue/Throat cefuroxime Allergy Severe RASH/ Verified 09/15/24 18:07 DIARRHEA cephalexin Allergy Severe RASH/NAUSEA Verified 09/15/24 18:07 /VOMITING Cephalosporins Allergy Severe Rash Verified 09/15/24 18:07 ciprofloxacin Allergy Severe Rash Verified 09/15/24 18:07 erythromycin base Allergy Severe Rash Verified 09/15/24 18:07 nitrofurantoin Allergy Severe Rash Verified 09/15/24 18:07 Penicillins Allergy Severe Rash Verified 09/15/24 18:07 Sulfa (Sulfonamide Allergy Severe Rash Verified 09/15/24 18:07 Antibiotics) NITRATE Allergy Severe Rash Uncoded 09/15/24 18:07 Visit Medications Acetaminophen (Acetaminophen 325 Mg Tablet) 650 mg PO Q6H PRN PRN Reason: PAIN OR FEVER > 101 Stop: 10/15/24 21:27 Allopurinol (Allopurinol 100 Mg Tablet) 100 mg PO QDAY [facility] Stop: 10/16/24 08:59 Amlodipine Besylate (Amlodipine Besylate 5 Mg Tablet) 10 mg PO QDAY [facility] Stop: 10/16/24 08:59 Carvedilol (Carvedilol 12.5 Mg Tablet) 25 mg PO BID [facility] Stop: 10/16/24 08:59 Famotidine (Famotidine Inj 10 Mg/Ml Vial 2 Ml) 20 mg IVP BID [facility] Stop: 10/16/24 08:59 Heparin Sodium (Porcine) (Heparin Sod Inj 5000 Unit/Ml Vial) 5,000 unit SC Q8HR [facility] Stop: 09/29/24 21:59 Morphine Sulfate (Morphine Sulf Inj 10 Mg/Ml Vial) 4 mg IVP Q4HR PRN PRN Reason: PAIN SCALE 4-10(Mod-Sev Ondansetron HCl (Ondansetron Inj 2 Mg/Ml Inj 2 Ml) 4 mg IV Q6H PRN; Protocol PRN Reason: NAUSEA OR VOMITING Stop: 10/15/24 21:27 Primidone (Primidone 50 Mg Tablet) 250 mg PO QDAY [facility] Stop: 09/21/24 08:59 Sennosides (Senna Tablet) 2 tab PO BID PRN; Protocol PRN Reason: CONSTIPATION Stop: 10/15/24 21:27 Discontinued Medications Fentanyl Citrate (Fentanyl Cit Inj 50 Mcg/Ml Amp 2ml) 50 mcg IVP X1 ONE Stop: 09/15/24 18:06 Last Admin: 09/15/24 18:35 Dose: 50 mcg Morphine Sulfate (Morphine Sulf Inj 10 Mg/Ml Vial) 4 mg IVP X1 ONE Stop: 09/15/24 19:18 Last Admin: 09/15/24 19:30 Dose: 4 mg Ondansetron HCl (Ondansetron Inj 2 Mg/Ml Inj 2 Ml) 4 mg IV X1 ONE; Protocol Stop: 09/15/24 19:18 Last Admin: 09/15/24 19:27 Dose: 4 mg Assessment & Plan Plan The patient is a 84-year-old female who came to the ED with mechanical fall, no loss of consciousness, found to have hip fracture, orthopedic surgery recommended admitting the patient, and getting an MRI to further evaluate the fracture. #Mechanical fall #Hip fracture Face CT shows no acute facial fracture, head CT is negative for acute hemorrhage or mass effect, pelvis CT shows acute fracture greater trochanter right hip, no definite intertrochanteric extension however MRI hip without contrast is needed to confirm. EKG shows sinus rhythm with first-degree AV block. ? Orthopedic surgeon Dr. Orona is consulted, patient recommendations ? MRI pelvis without contrast ordered ? Will hold off on aspirin anticipation of possible surgery, will continue with heparin for DVT prophylaxis ? IV morphine every 4 hours as needed for pain ? Physical therapy ordered # Asymptomatic bacteriuria Patient denied any symptoms of dysuria, urinary retention or burning sensation, urinalysis does show some WBCs and bacteria, but patient denied any fever or urinary symptoms, possible colonization, less likely active UTI. Also of note patient is listed as allergic to fluoroquinolones and cephalosporins and Bactrim and sulfa. ? Will hold off on antibiotics at this point as patient asymptomatic #History of hypertension #History of end-stage renal disease Will consult Dr Ramirez to continue with regular hemodialysis schedule, T, T, S. Continue home medications for hypertension. ? Continue carvedilol 25 mg twice daily ? Continue hydralazine 50 mg twice daily ? Continue amlodipine 10 mg daily #History of CVA #History of tremors Patient takes baby aspirin at home, which will be held in anticipation of possible surgery. ?Continue primidone for tremors #History of gout ? Continue allopurinol Disposition: MedSurg, pending orthopedic recommendations after MRI DVT prophylaxis: Heparin subcut, holding aspirin and spine surgery GI prophylaxis: Famotidine Diet: Renal Lines: PIV CODE STATUS: Full, patient has signed DNR form, but wishes to be full code for admission. Plan of care discussed with my attending MD David Dalal PGy 2 Attending Provider Attestation/Addendum I attest that I was physically present for the evaluation, physical examination, lab and imaging review of the patient with the residents. I discussed the case with the residents and agree with the findings and plans of care as documented above. Patient is an 84 years old female with past medical history of ESRD on hemodialysis, ischemic CVA, hypertension, gout who presented to the ED after a fall. Patient has been having frequent falls recently after losing her balance. She had a fall last week as well. Today, while trying to turn quickly, she lost her balance and slipped hitting her face on the wall and falling down. In the ED, initial vitals were within normal limits except for blood pressure of 182/72. CT of the head was negative for acute hemorrhage, mass effect or midline shift. CT of cervical spine was negative for acute fractures. CT of the pelvis showed acute fractures of greater trochanter of right hip without obvious extension to intertrochanteric region but recommended MRI right hip without contrast to rule out the intertrochanteric extension. Orthopedics was consulted by the ED, who recommended admission of the patient and MRI of the hip to rule out intertrochanteric extension and decide on need for surgery. At bedside, patient states she continues to be on pain, controlled with IV analgesics. Has multiple bruising around her face has right arm scraped up and bandaged, bruising around right hip, old bruising around her legs. After examination of the patient and review of the clinical data, I feel that this patient needs admission to the hospital for further treatment/evaluation. We will start her on analgesic regimen, resume her home medications including amlodipine, allopurinol, carvedilol, hydralazine and primidone. We will obtain PT/INR for a.m., start her on heparin for DVT prophylaxis. We will also obtain nephrology consult for arrangement of hemodialysis. MRI pelvis without contrast have been ordered. Holding home aspirin, in anticipation of surgery. Reji Beckman MD
[2024-09-15] MEDS: HEPARIN SOD INJ 5000 UNIT/ML VIAL SC (21:52)
[2024-09-15 22:02] VITALS: BP 161/71; PULSE 77; RESP 18; TEMP 36.6; O2SAT 94
[2024-09-15 23:01] VITALS: BP 129/66; PULSE 74; RESP 20; TEMP 36.8; O2SAT 96
[2024-09-15 23:36] VITALS: BMI 25.1
[2024-09-16] VITALS (10 sets, daily range): BP systolic 120–161; BP diastolic 59–74; PULSE 75–91; RESP 16–94; TEMP 36.1–36.8; O2SAT 92–96; BMI 11.0
--- NOTE | 2024-09-16 | XR_ITS ---
Examination: MRI xx foot, without contrast Date and time of exam: 2024 1601 hours INDICATIONS: Patient fell September 15, 2024 with fracture greater trochanter right hip Technique: Multiple axial sagittal and coronal images of the right hip have been obtained with the Siemens high-resolution 1.5 Ana MRI scanner. Images obtained include T2-weighted fat-suppressed sagittal sections, TR 3500, TE 46, T2 weighted coronal fat suppressed images, TR 3050, TE 84, T2-weighted transverse fat suppressed images, TR 3260, TE 63, proton density transverse images, TR 4720 TE 46, and T1 weighted coronal images, TR 560, TE 13. Findings: Fractures greater trochanter right hip Fracture lines do extend into the intertrochanteric region of the right hip, coronal image 9 Hemorrhage in the soft tissue lateral to the right hip No hip dislocation Degenerative bones of the pelvis intact IMPRESSION: Fractures greater trochanter right hip Fracture lines do extend into the intertrochanteric region right hip on coronal image 9, this is a partly intertrochanteric fracture right hip
[2024-09-16] MEDS: HYDROmorphone INJ 2 MG/ML VIAL 0.5 MG IVP (00:39)
[2024-09-16] MEDS: traMADol HCL 50 MG TABLET 25 MG PO ×2 (02:44→08:57)
[2024-09-16] MEDS: HEPARIN SOD INJ 5000 UNIT/ML VIAL SC ×3 (05:09→21:19)
[2024-09-16 05:52] LABS: Basophils # (Auto) 0.1 Thou/mm3 (0.0-0.2); Basophils % (Auto) 1 % (0-2.5); Eosinophils # (Auto) 0.2 Thou/mm3 (0.0-0.5); Eosinophils % (Auto) 3 % (0-10); Hematocrit 36.3 % (36.0-46.0); Immature Granulocytes % (Auto) 1 % (0-0); Immature Granulocytes Auto 0.05 Thou/mm3 (0.00-0.00); Lymphocytes # (Auto) 1.1 Thou/mm3 (1.0-4.8); Lymphocytes % (Auto) 16 % (10-50); Mean Corpuscular HGB Conc 33.1 g/dl (31.0-37.0); Mean Corpuscular Hemoglobin 35.6 pg (25.0-35.0); Mean Corpuscular Volume 108 fL (80-100); Monocytes % (Auto) 14 % (0-12); Neutrophils # (Auto) 4.7 Thou/mm3 (1.8-7.7); Neutrophils % (Auto) 66 % (37-80); Nucleated Red Blood Cell % 0 /100 WBC (0); Platelet Count 145 Thou/mm3 (140-440); RDW Standard Deviation 62.9 fL (36.4-46.3); Red Blood Count 3.37 Miln/mm3 (4.00-5.20); White Blood Count 7.1 Thou/mm3 (3.6-11.0)
[2024-09-16 06:00] LABS: Prothrombin Time 11.4 Seconds (9.0-12.2)
[2024-09-16 06:18] LABS: Alanine Aminotransferase 83 U/L (10-49); Albumin, Serum 3.5 gm/dL (3.4-4.8); Alkaline Phosphatase 153 U/L (46-116); Anion Gap 11 (7-16); Aspartate Amino Transferase 151 U/L (0-34); BUN/Creatinine Ratio 7 Ratio (12-20); Bilirubin,Direct 0.2 mg/dL (0.0-0.3); Bilirubin,Total 0.5 mg/dL (0.3-1.2); Blood Urea Nitrogen 32 mg/dL (9-23); Calcium 8.5 mg/dL (8.3-10.6); Carbon Dioxide 28.1 mMol/L (20.0-31.0); Cardiac Risk Estimate 4.4 RATIO (3.7-5.6); Chloride 100 mMol/L (98-107); Cholesterol 153 mg/dL (132-200); Creatinine (Component) 4.5 mg/dL (0.6-1.3); Glucose 99 mg/dL (74-106); HDL Cholesterol 35 mg/dL (40-60); LDL Cholesterol,Calculated 80 mg/dL (0-130); Magnesium 1.9 mg/dL (1.6-2.6); Osmolality,Calculated 284 (275-295); Phosphorous 5.6 mg/dL (2.4-5.1); Sodium 139 mMol/L (136-145); Thyroid Stimulating Hormone 3.72 uIU/mL (0.55-4.78); Total Protein 5.7 gm/dL (5.7-8.2); Triglycerides 191 mg/dL (30-150); eGFR 9 See Note
[2024-09-16] MEDS: allopurinoL 100 MG TABLET PO (08:55)
[2024-09-16] MEDS: amLODIPine BESYLATE 5 MG TABLET 10 MG PO (08:55)
[2024-09-16] MEDS: PRIMIDONE 50 MG TABLET 250 MG PO (08:57)
[2024-09-16] MEDS: FAMOTIDINE INJ 10 MG/ML VIAL 2 ML 20 MG IVP (08:58)
--- NOTE | 2024-09-16 10:20 | PC.SS ---
Follow up note: Pt is on IV meds. Possible surgery for hip replacement by Dr. Valadez. SS offered d/c options for home or SNF. Patient's choice is SNF and her preference is [facility]. Pt is aware if she requires transportation her insurance does not cover cost.
--- NOTE | 2024-09-16 10:52 | PC.SS ---
Addendum entered by Sumaya Benavides 09/16/24 11:33: Per bedside nurse, Janes pt is not on any Physic medications, anxiety, or depressions. Original Note: SS sent inquiry using [facility]. Patient's prefers is [facility]. SS spoke to Cristiana from [facility] who is aware pt has dialysis Monday and Monday with [facility] with Dr. Ramirez at 8:30 and [facility] was provide transportation during the week and dtr during the weekend. Cristiana at [facility] is still agreeable to accept. [facility] has been booked on [facility].
[2024-09-16] MEDS: oxyCODONE/APAP 5/325 TABLET 1 TAB PO ×2 (15:19→21:46)
--- NOTE | 2024-09-16 15:50 | ESPR_ITS ---
Documentation for date of: 09/16/24 Subjective Subjective Interval history: Patient was seen and examined at bedside. Patient reported good pain control. Vitally stable. Still pending MRI and then orthopedic recommendations. We noticed that her liver enzymes are elevated we will keep monitoring at this time if they continue to be elevated we will order liver ultrasound and do further workup. Exam Vital Signs Temp Pulse Resp BP Pulse Ox O2 Del Method 98.2 F 89 18 136/67 H 92 L Room Air 09/16/24 12:00 09/16/24 12:00 09/16/24 12:00 09/16/24 12:00 09/16/24 12:00 09/16/24 12:00 Narrative Exam GEN: AOx3, able to speak full sentences, facial bruise on the right side HEENT: NC/AC, oral mucosa moist, neck supple CVS: RRR, S1-S2 present, no murmurs appreciated RESP: CTAB GI: soft,non distended, non tender, NBS MSK: Limited mobility of the right lower extremity due to pain, no lower extremity edema SKIN: warm and dry DIRECTOR STATISTICAL PROGRAMMING: CN II-XII and Sensation grossly intact. Objective Labs 09/16/24 05:03 09/16/24 05:03 Labs: Laboratory Results - last 24 hr 09/15/24 09/15/24 09/16/24 18:27 18:50 05:03 WBC 8.9 7.1 RBC 3.78 L 3.37 L Hgb 13.4 12.0 Hct 39.3 36.3 MCV 104 H 108 H MCH 35.4 H 35.6 H MCHC 34.1 33.1 RDW Std Deviation 61.2 H 62.9 H Plt Count 143 145 Neut % (Auto) 67 66 Lymph % (Auto) 16 16 [place] % (Auto) 12 14 H Eos % (Auto) 4 3 Baso % (Auto) 1 1 Neut # (Auto) 6.0 4.7 Lymph # (Auto) 1.4 1.1 [place] # (Auto) 1.1 H 1.0 H Eos # (Auto) 0.4 0.2 Baso # (Auto) 0.1 0.1 Immature Gran # (Auto) 0.06 H 0.05 H Absolute Nucleated RBC 0.00 0.00 Immature Gran % 1 H 1 H Nucleated RBC % 0 0 PT 11.2 11.4 INR 1.0 1.0 APTT 29.9 Sodium 134 L 139 Potassium 3.6 4.0 Chloride 98 100 Carbon Dioxide 26.0 28.1 Anion Gap 10 11 BUN 27 H 32 H Creatinine 4.2 H* 4.5 H* Estim Creat Clear Calc 7.5 L 7.0 L eGFR 10 L* 9 L* BUN/Creatinine Ratio 6 L 7 L Glucose 105 99 Calculated Osmolality 273 L 284 Calcium 9.3 8.5 Corrected Calcium 9.3 Phosphorus 5.6 H Magnesium 1.9 1.9 Total Bilirubin 0.3 0.5 Direct Bilirubin 0.2 AST 19 151 H ALT 12 83 H Alkaline Phosphatase 147 H 153 H Lactate Dehydrogenase 237 Troponin I < 0.020 B-Natriuretic Peptide 273 H Total Protein 6.7 5.7 Albumin 4.3 3.5 D Globulin 2.4 Albumin/Globulin Ratio 1.8 Triglycerides 191 H Cholesterol 153 LDL Cholesterol, Calc 80 HDL Cholesterol 35 L Cholesterol/HDL Ratio 4.4 TSH 3.72 Ur Collection Type Clean Catch Urine Color Yellow Urine Clarity Turbid A Urine pH 6.5 Ur Specific [place] 1.018 Urine Protein 3+ A Urine Glucose (UA) Negative Urine Ketones Negative Urine Blood Trace Urine Nitrite Negative Urine Bilirubin Negative Urine Urobilinogen (Auto) 2.0 Ur Leukocyte Esterase Positive Urine RBC 6 H Urine WBC 392 H Ur Squamous Epith Cells 3 Urine Bacteria 2+ A Hyaline Casts < 1 Urine Opiates Screen Negative Urine Fentanyl Screen Negative Ur Barbiturates Screen Positive A U Amphetamin/Meth Scrn Negative U Benzodiazepines Scrn Negative U Cocaine Metab Screen Negative U Marijuana (THC) Screen Negative Quality Measures Quality Measures none Advance care planning discussed with:: patient Assessment & Plan Assessment Current Active Medications: Generic Name Dose Route Start Last Admin Trade Name Freq PRN Reason Stop Dose Admin Acetaminophen 650 mg 09/15/24 23:59 Acetaminophen 325 Mg Tablet PO 10/15/24 21:27 Q6H PRN PAIN 1-3 OR FEVER > 101 Allopurinol 100 mg 09/16/24 09:00 09/16/24 08:55 Allopurinol 100 Mg Tablet PO 10/16/24 08:59 100 mg QDAY CALEB Administration Amlodipine Besylate 10 mg 09/16/24 09:00 09/16/24 08:55 Amlodipine Besylate 5 Mg Tablet PO 10/16/24 08:59 10 mg QDAY CALEB Administration Carvedilol 25 mg 09/16/24 21:52 Carvedilol 12.5 Mg Tablet PO 10/16/24 21:51 BID CALEB Famotidine 20 mg 09/16/24 09:00 09/16/24 08:58 Famotidine Inj 10 Mg/Ml Vial 2 Ml IVP 10/16/24 08:59 20 mg DAILY CALEB Administration Heparin Sodium (Porcine) 5,000 unit 09/15/24 22:00 09/16/24 13:18 Heparin Sod Inj 5000 Unit/Ml Vial SC 09/29/24 21:59 5,000 unit Q8HR CALEB Administration Hydralazine HCl 50 mg 09/16/24 21:52 Hydralazine Hcl 25 Mg Tablet PO 10/16/24 21:51 BID CALEB Hydromorphone HCl 0.25 mg 09/16/24 13:36 Hydromorphone Inj 2 Mg/Ml Vial IVP 09/21/24 13:35 Q4HR PRN Pain 8-10 Ondansetron HCl 4 mg 09/15/24 21:28 09/15/24 21:53 Ondansetron Inj 2 Mg/Ml Inj 2 Ml IV 10/15/24 21:27 4 mg Q6H PRN Administration NAUSEA OR VOMITING Protocol Oxycodone/Acetaminophen 1 tab 09/16/24 13:35 09/16/24 15:19 Oxycodone/Apap 5/325 Tablet PO 09/21/24 13:34 1 tab Q6HR PRN Administration Pain 4-7 Pharmacy Consult 1 each 09/16/24 13:37 Pharmacy Renal Dose Adjustment 1 Ea XX 10/16/24 13:36 PRN PRN CONSULT Primidone 250 mg 09/16/24 09:00 09/16/24 08:57 Primidone 50 Mg Tablet PO 09/21/24 08:59 250 mg QDAY CALEB Administration Sennosides 2 tab 09/15/24 21:28 Senna Tablet PO 10/15/24 21:27 BID PRN CONSTIPATION Protocol Plan ; A 84-year-old female who came to the ED with mechanical fall, no loss of consciousness, found to have hip fracture, orthopedic surgery recommended admitting the patient, and getting an MRI to further evaluate the fracture. #Mechanical fall #Acute fractures greater trochanter right hip Face CT shows no acute facial fracture, head CT is negative for acute hemorrhage or mass effect, pelvis CT shows acute fracture greater trochanter right hip, no definite intertrochanteric extension however MRI hip without contrast is needed to confirm. EKG shows sinus rhythm with first-degree AV block. ? Orthopedic surgeon Dr. Orona is consulted, patient recommendations ? MRI pelvis without contrast ordered ? Will hold off on aspirin anticipation of possible surgery, will continue with heparin for DVT prophylaxis ? IV morphine every 4 hours as needed for pain ? Physical therapy ordered ?Will consider holding primidone 250 mg, after PT evaluation, or will decrease the dose due to the risk of withdrawal. # Asymptomatic bacteriuria Patient denied any symptoms of dysuria, urinary retention or burning sensation, urinalysis does show some WBCs and bacteria, but patient denied any fever or urinary symptoms, possible colonization, less likely active UTI. Also of note patient is listed as allergic to fluoroquinolones and cephalosporins and Bactrim and sulfa. ? Will hold off on antibiotics at this point as patient asymptomatic #Elevated liver enzymes Patient was noted to have a history of 151, ALT of 83, alk phos of 153, previous serology from March 2024 was negative for any viral hepatitis Plan ? Will consider ultrasound of the liver if liver enzymes continue to be elevated. #History of hypertension #History of end-stage renal disease Will consult Dr Ramirez to continue with regular hemodialysis schedule, T, T, S. Continue home medications for hypertension. ? Continue carvedilol 25 mg twice daily ? Continue hydralazine 50 mg twice daily ? Continue amlodipine 10 mg daily #History of CVA #History of tremors Patient takes baby aspirin at home, which will be held in anticipation of possible surgery. ?Continue primidone for tremors #History of gout ? Continue allopurinol Disposition: MedSurg, pending orthopedic recommendations after MRI DVT prophylaxis: Heparin subcut, holding aspirin and spine surgery GI prophylaxis: Famotidine Diet: Renal Lines: PIV CODE STATUS: Full, patient has signed DNR form, but wishes to be full code for admission. - Patient's plan and care discussed with my attending, Dr. Tabatha Garcia MD Internal Medicine PGY-2 Attending Provider Attestation/Addendum I have examined the patient, reviewed labs and imaging findings, discussed the case with the resident(s), and reviewed entered orders. I agree with the plan of care as outlined in this note, with these additional summaries/recommendations: Patient seen at bedside. Patient was admitted overnight for mechanical fall and right hip fracture. Patient was seen by orthopedics and currently pending MRI pelvis/hip to evaluate further. We will follow-up with orthopedics once MRI is completed to see if patient requires any surgical intervention. Continue pain management. Patient has notable bruises to face and extremities which she reports to ? easy bruising? and frequent falls. CT head on admission did not reveal any acute fractures. She does take daily baby aspirin. Physical therapy ordered. Nephrology following for inpatient hemodialysis. Continue home antihypertensives. Urine toxicology positive for barbiturates likely secondary to primidone which patient takes for tremors. Unclear if contributing to frequent falls. Patient will need to follow-up outpatient with neurology. Repeat hematology and chemistry panel in AM. Please see residents note for additional details of management. Dr. Tabatha MD
[2024-09-16] MEDS: carVEDILOL 12.5 MG TABLET 25 MG PO (21:19)
[2024-09-16] MEDS: hydrALAZINE HCL 25 MG TABLET 50 MG PO (21:19)
--- NOTE | 2024-09-16 21:44 | CONPN_ITS ---
Subjective Subjective Brief History: Very nice 84-year-old who was turning around in her apartment and lost her balance striking the right side of her body including right face right elbow right hip right knee right leg Narrative: Persistent right hip pain. No new complaints Exam Vital Signs Temp Pulse Resp BP Pulse Ox O2 Del Method 97.2 F 83 16 145/68 H 94 L Room Air 09/16/24 20:00 09/16/24 21:19 09/16/24 20:00 09/16/24 21:19 09/16/24 20:00 09/16/24 20:00 Vital signs stable. Pulse ox 94 on room air Narrative Exam Alert and oriented. No new complaints. Pain right hip. Able to flex and extend right knee right ankle foot Objective - Ortho Labs 09/16/24 05:03 09/16/24 05:03 Labs: Laboratory Results - last 24 hr 09/16/24 05:03 WBC 7.1 RBC 3.37 L Hgb 12.0 Hct 36.3 MCV 108 H MCH 35.6 H MCHC 33.1 RDW Std Deviation 62.9 H Plt Count 145 Neut % (Auto) 66 Lymph % (Auto) 16 [place] % (Auto) 14 H Eos % (Auto) 3 Baso % (Auto) 1 Neut # (Auto) 4.7 Lymph # (Auto) 1.1 [place] # (Auto) 1.0 H Eos # (Auto) 0.2 Baso # (Auto) 0.1 Immature Gran # (Auto) 0.05 H Absolute Nucleated RBC 0.00 Immature Gran % 1 H Nucleated RBC % 0 PT 11.4 INR 1.0 Sodium 139 Potassium 4.0 Chloride 100 Carbon Dioxide 28.1 Anion Gap 11 BUN 32 H Creatinine 4.5 H* Estim Creat Clear Calc 7.0 L eGFR 9 L* BUN/Creatinine Ratio 7 L Glucose 99 Calculated Osmolality 284 Calcium 8.5 Phosphorus 5.6 H Magnesium 1.9 Total Bilirubin 0.5 Direct Bilirubin 0.2 AST 151 H ALT 83 H Alkaline Phosphatase 153 H Total Protein 5.7 Albumin 3.5 D Triglycerides 191 H Cholesterol 153 LDL Cholesterol, Calc 80 HDL Cholesterol 35 L Cholesterol/HDL Ratio 4.4 TSH 3.72 Creatinine 4.5 Assessment & Plan Assessment Additional comments: MRI scan shows greater trochanteric fracture. There is also a fracture line that extends down the greater trochanter towards very proximal femur it is in the axis of the extremity the compression side of the fracture is intact no edema noted in femoral head. I feel the fracture is stable and can weight-bear to tolerance. Protected weightbearing for 4 to 6 weeks. Plan I am going to share her MRI scan with other orthopedist so it is good to get consultation. get her up with PT tomorrow. Will weight-bear to tolerance Documentation for date of: 09/16/24
--- NOTE | 2024-09-16 23:32 | ESCONSULT_ITS ---
RE: GAEL YOU : 1940 DATE OF CONSULTATION: 09/16/2024 REASON FOR REFERRAL: ESRD management. REFERRING PHYSICIAN: Dr. Hernandez. HISTORY OF PRESENT ILLNESS: This patient is an 84-year-old woman with past medical history significant for longstanding hypertension, gout, arthritis, and ESRD on dialysis since 11/2018, dialyzing Monday, , and Monday at [facility], who presented to emergency room last night after she fell. After she had a CAT scan, she was found with an acute fracture of the greater trochanteric right hip. Dr. Peralta, her orthopedic surgeon wants her to have an MRI of the right hip first before going for surgery if needed. She said that she is doing a little bit better now. She has a little bit of pain, but not as much. CURRENT MEDICATIONS: 1. Acetaminophen. 2. Allopurinol 100 mg daily. 3. Amlodipine 10 mg daily. 4. Carvedilol 25 mg b.i.d. 5. Famotidine. 6. Fentanyl 50 mcg x1. 7. Hydromorphone. 8. Primidone 250 mg p.o. daily. 9. Oxycodone. 10. Ondansetron. 11. Senna. ALLERGIES: ATORVASTATIN, CEFUROXIME, CEPHALEXIN, CEPHALOSPORIN, CIPROFLOXACIN, NITROFURANTOIN, PENICILLIN, AND BACTRIM. PHYSICAL EXAMINATION: GENERAL: She is awake, alert, and oriented, not in respiratory distress. VITAL SIGNS: Blood pressure of 145/68 and heart rate of 83. HEENT: Anicteric sclerae. Normocephalic. NECK: Supple. JVD. CHEST AND LUNGS: Symmetrical expansion. Clear breath sounds. CARDIAC: Without murmur. ABDOMEN: Soft and nontender. EXTREMITIES: No edema. LABORATORY DATA: Hemoglobin 12, WBC 7100, and platelet count 145,000. Sodium 139, potassium 4, chloride 100, CO2 is 28.1, BUN 32, creatinine 4.5, glucose 99, calcium 8.5, and phosphorus 5.6. ASSESSMENT: 1. End-stage renal disease. 2. Hypertension. 3. Multiple allergic reactions to several antibiotics. 4. Acute Fracture of Great Trochanteric of right hip PLAN: MRI of the pelvis has been ordered by Dr. Peralta. We will await further result of the MRI of her hip. Continue supportive treatment. Next dialysis will be tomorrow. DT: 22:42:49 TT: 23:31:00 Ref: [id number] - TID: [id number] MTDD
[2024-09-17] VITALS (25 sets, daily range): BP systolic 102–148; BP diastolic 49–71; PULSE 73–87; RESP 17–95; TEMP 36.2–37.1; O2SAT 92–95; BMI 13.0
[2024-09-17] MEDS: HEPARIN SOD INJ 5000 UNIT/ML VIAL SC ×3 (05:14→21:01)
[2024-09-17 05:48] LABS: Basophils % (Auto) 1 % (0-2.5); Eosinophils # (Auto) 0.2 Thou/mm3 (0.0-0.5); Eosinophils % (Auto) 3 % (0-10); Hematocrit 33.6 % (36.0-46.0); Hemoglobin 11.3 g/dL (12.0-16.0); Immature Granulocytes % (Auto) 1 % (0-0); Immature Granulocytes Auto 0.05 Thou/mm3 (0.00-0.00); Lymphocytes # (Auto) 1.2 Thou/mm3 (1.0-4.8); Lymphocytes % (Auto) 19 % (10-50); Mean Corpuscular HGB Conc 33.6 g/dl (31.0-37.0); Mean Corpuscular Hemoglobin 35.2 pg (25.0-35.0); Mean Corpuscular Volume 105 fL (80-100); Monocytes # (Auto) 0.7 Thou/mm3 (0.0-0.8); Monocytes % (Auto) 12 % (0-12); Neutrophils % (Auto) 65 % (37-80); Nucleated Red Blood Cell % 0 /100 WBC (0); Platelet Count 124 Thou/mm3 (140-440); RDW Standard Deviation 58.6 fL (36.4-46.3); Red Blood Count 3.21 Miln/mm3 (4.00-5.20); White Blood Count 6.2 Thou/mm3 (3.6-11.0)
[2024-09-17 06:20] LABS: Anion Gap 11 (7-16); BUN/Creatinine Ratio 7 Ratio (12-20); Blood Urea Nitrogen 41 mg/dL (9-23); Calcium 7.9 mg/dL (8.3-10.6); Carbon Dioxide 26.9 mMol/L (20.0-31.0); Chloride 97 mMol/L (98-107); Creatinine (Component) 5.5 mg/dL (0.6-1.3); Estimated Creatinine Clearance 5.7 mL/min (>60); Glucose 88 mg/dL (74-106); Osmolality,Calculated 279 (275-295); Sodium 135 mMol/L (136-145); eGFR 7 See Note
--- NOTE | 2024-09-17 09:10 | PC.SS ---
Late note 09-17-24: SS met with patient regarding her d/c plan. Pt is alert/oriented. Pt was admitted for Hip Fracture. Pt confirmed demographic and contact information is correct on facesheet. Pt resides alone. Pt is from [facility]. Pt ambulates independently without assistance or DME. Pt has walker which she utilizes outside her home only. Pt is ok with all ADLs. Pt is established with [facility] with Dr. Ramirez. Dialysis chair time is ,, & Sat at 8:30am. Pt states [facility] provides transportation during the week and dtr takes her to dialysis on Saturdays. Patient?s pharmacy of choice is [facility] [address]. Pt named her dtr, Frida Mcgovern medical decision maker if she is unable. SS provided pt with d/c options for home or SNF. Patient?s choice is SNF. Pt followed up with PCP in August. D/C plan: SNF: [facility] Next of Kin: Frida Mcgovern, dtr, phone# [phone] PCP: Dr. Brooklyn Guerra-Chapincito Address: Correct on facesheet
[2024-09-17] MEDS: ACETAMINOPHEN 325 MG TABLET 650 MG PO (09:13)
--- NOTE | 2024-09-17 09:17 | PC.SS ---
SS follow up: patient is pending three midnights stays before discharge to [facility]. Spoke with Seema at [facility] to make aware, per SS funeral planner, there are no surgical intervention plans at this time. Patient is aligned with [facility] dialysis Dr. Ramirez on Monday, and Monday at 8:30am. Seema is aware and will work on arranging patient's transportation needs to dialysis.
[2024-09-17 10:42] LABS: Magnesium 1.9 mg/dL (1.6-2.6); Phosphorous 6.3 mg/dL (2.4-5.1)
[2024-09-17] MEDS: HYDROmorphone INJ 2 MG/ML VIAL 0.25 MG IVP (12:27)
[2024-09-17] MEDS: allopurinoL 100 MG TABLET PO (12:27)
[2024-09-17] MEDS: FAMOTIDINE INJ 10 MG/ML VIAL 2 ML 20 MG IVP (12:27)
[2024-09-17] MEDS: amLODIPine BESYLATE 5 MG TABLET 10 MG PO (12:28)
[2024-09-17] MEDS: carVEDILOL 12.5 MG TABLET 25 MG PO ×2 (12:28→21:00)
[2024-09-17] MEDS: PRIMIDONE 50 MG TABLET 250 MG PO (13:19)
--- NOTE | 2024-09-17 14:46 | ESPR_ITS ---
Documentation for date of: 09/17/24 Subjective Subjective Interval history: Patient examined at bedside today. Patient in dialysis chair when examined. Patient is currently tolerating dialysis. Patient wondering when she can go home. She is wondering if she is going go to custodial facility once she leaves today. No other complaints at this time. Exam Vital Signs Temp Pulse Resp BP Pulse Ox O2 Del Method 97.4 F 75 18 118/59 L 95 Room Air 09/17/24 11:45 09/17/24 12:28 09/17/24 11:45 09/17/24 12:28 09/17/24 11:45 09/17/24 08:00 Narrative Exam General: AAOx3, NAD, frail elderly female, wearing glasses, and suture HEENT: Moist mucous membranes, conjunctiva clear, EOMI, PERRLA, either bruise under right eyelid or port wine stain Cardiovascular: S1, S2, radial pulses +2 bilat, RRR Pulmonary: CTAB bilat no cough, no wheezing GI: No tenderness to light or deep palpitation, no guarding, rigidity, rebound tenderness or distension Extremities: Trace edema in lower extremities bilaterally, dorsalis pedis pulses +2 bilaterally Skin: Diffuse purpura throughout upper and lower extremities Neuro: AAOx3, no focal motor or sensory deficits in the UE or LE bilat Psych: Good judgement, thought and behavior. Cooperative Objective Labs 09/17/24 05:10 09/17/24 05:10 Labs: Laboratory Results - last 24 hr 09/17/24 05:10 WBC 6.2 RBC 3.21 L Hgb 11.3 L Hct 33.6 L MCV 105 H MCH 35.2 H MCHC 33.6 RDW Std Deviation 58.6 H Plt Count 124 L Neut % (Auto) 65 Lymph % (Auto) 19 [place] % (Auto) 12 Eos % (Auto) 3 Baso % (Auto) 1 Neut # (Auto) 4.0 Lymph # (Auto) 1.2 [place] # (Auto) 0.7 Eos # (Auto) 0.2 Baso # (Auto) 0.0 Immature Gran # (Auto) 0.05 H Absolute Nucleated RBC 0.00 Immature Gran % 1 H Nucleated RBC % 0 Sodium 135 L Potassium 4.0 Chloride 97 L Carbon Dioxide 26.9 Anion Gap 11 BUN 41 H Creatinine 5.5 H* D Estim Creat Clear Calc 5.7 L eGFR 7 L* BUN/Creatinine Ratio 7 L Glucose 88 Calculated Osmolality 279 Calcium 7.9 L Phosphorus 6.3 H Magnesium 1.9 Quality Measures Quality Measures none Advance care planning discussed with:: patient Assessment & Plan Assessment Current Active Medications: Generic Name Dose Route Start Last Admin Trade Name Freq PRN Reason Stop Dose Admin Acetaminophen 650 mg 09/15/24 23:59 09/17/24 09:13 Acetaminophen 325 Mg Tablet PO 10/15/24 21:27 650 mg Q6H PRN Administration PAIN 1-3 OR FEVER > 101 Allopurinol 100 mg 09/16/24 09:00 09/17/24 12:27 Allopurinol 100 Mg Tablet PO 10/16/24 08:59 100 mg QDAY CALEB Administration Amlodipine Besylate 10 mg 09/16/24 09:00 09/17/24 12:28 Amlodipine Besylate 5 Mg Tablet PO 10/16/24 08:59 10 mg QDAY CALEB Administration Carvedilol 25 mg 09/16/24 21:52 09/17/24 12:28 Carvedilol 12.5 Mg Tablet PO 10/16/24 21:51 25 mg BID CALEB Administration Famotidine 20 mg 09/16/24 09:00 09/17/24 12:27 Famotidine Inj 10 Mg/Ml Vial 2 Ml IVP 10/16/24 08:59 20 mg DAILY CALEB Administration Heparin Sodium (Porcine) 5,000 unit 09/15/24 22:00 09/17/24 13:18 Heparin Sod Inj 5000 Unit/Ml Vial SC 09/29/24 21:59 5,000 unit Q8HR CALEB Administration Hydralazine HCl 50 mg 09/16/24 21:52 09/17/24 12:13 Hydralazine Hcl 25 Mg Tablet PO 10/16/24 21:51 Not Given BID CALEB Hydromorphone HCl 0.25 mg 09/16/24 13:36 09/17/24 12:27 Hydromorphone Inj 2 Mg/Ml Vial IVP 09/21/24 13:35 0.25 mg Q4HR PRN Administration Pain 8-10 Albumin Human 25 gm in 100 mls @ 100 mls/hr 09/17/24 09:17 Albuminar-25 Ivpb IV PRN PRN DIALYSIS Ondansetron HCl 4 mg 09/15/24 21:28 09/15/24 21:53 Ondansetron Inj 2 Mg/Ml Inj 2 Ml IV 10/15/24 21:27 4 mg Q6H PRN Administration NAUSEA OR VOMITING Protocol Oxycodone/Acetaminophen 1 tab 09/16/24 13:35 09/16/24 21:46 Oxycodone/Apap 5/325 Tablet PO 09/21/24 13:34 1 tab Q6HR PRN Administration Pain 4-7 Pharmacy Consult 1 each 09/16/24 13:37 Pharmacy Renal Dose Adjustment 1 Ea XX 10/16/24 13:36 PRN PRN CONSULT Primidone 250 mg 09/16/24 09:00 09/17/24 13:19 Primidone 50 Mg Tablet PO 09/21/24 08:59 250 mg QDAY CALEB Administration Sennosides 2 tab 09/15/24 21:28 Senna Tablet PO 10/15/24 21:27 BID PRN CONSTIPATION Protocol Plan Assessment A 84-year-old female who came to the ED with mechanical fall, no loss of consciousness, found to have hip fracture, orthopedic surgery recommended admitting the patient, and getting an MRI to further evaluate the fracture. #Acute fractures greater trochanter right hip s/p mechanical fall Face CT shows no acute facial fracture, head CT is negative for acute hemorrhage or mass effect, pelvis CT shows acute fracture greater trochanter right hip, no definite intertrochanteric extension however MRI hip without contrast is needed to confirm. EKG shows sinus rhythm with first-degree AV block. MRI shows fractures of the greater trochanter of the right hip Ortho, Dr. Peralta, recommends weightbearing exercises for the next 4 to 6 weeks PT recommends SNF Will follow-up with SNF placement tomorrow Plan: ? Orthopedic surgeon Dr. Peralta is consulted, patient recommendations ? Continue with weightbearing exercises ? IV Dilaudid 0.25 mg every 4 hours as needed for pain ? Physical therapy # Asymptomatic bacteriuria Patient denied any symptoms of dysuria, urinary retention or burning sensation, urinalysis does show some WBCs and bacteria, but patient denied any fever or urinary symptoms, possible colonization, less likely active UTI. Also of note patient is listed as allergic to fluoroquinolones and cephalosporins and Bactrim and sulfa Plan: ? Will hold off on antibiotics at this point as patient asymptomatic #Elevated liver enzymes Patient was noted to have a history of 151, ALT of 83, alk phos of 153, previous serology from March 2024 was negative for any viral hepatitis Plan: ? Continue to trend liver markers ? Follow-up hepatitis panel #History of hypertension #History of end-stage renal disease Will consult Dr Ramirez to continue with regular hemodialysis schedule, T, , S. Continue home medications for hypertension Plan: ? Continue home carvedilol 25 mg twice daily ? Continue home hydralazine 50 mg twice daily ? Continue home amlodipine 10 mg daily ? Continue dialysis schedule // ? Trend lytes #History of CVA #History of tremors Patient takes baby aspirin at home, which will be held in anticipation of possible surgery. Plan: ?Continue primidone for tremors #History of gout Plan: ? Continue allopurinol #Health Maintenance Disposition: MedSurg DVT prophylaxis: Heparin GI prophylaxis: Pepcid Diet: Renal CODE STATUS: Full Patient seen and care discussed with my attending physician, Dr. Sven Saucedo, PGY-1 Attending Provider Attestation/Addendum I have discussed and was present for the essential components of the history, physical examination, diagnosis, and treatment plan with the resident. I agree with the patient's care as documented by the resident and amended herein by me. Steven Machuca DO. Although this document has been carefully reviewed, there may still be some phonetic and other typographical errors. These errors are purely grammatical due to imperfections in the software program and should not be construed in any way to compromise the substance of the patient's medical care during this visit.
--- NOTE | 2024-09-17 16:20 | ESPR_ITS ---
RE: GAEL YOU : 1940 DATE OF SERVICE: 09/17/2024 HISTORY OF PRESENT ILLNESS: Briefly, she is an 84-year-old woman with longstanding hypertension, gout, arthritis, and ESRD, on dialysis since 11/2018, dialyzing Monday, , and Monday at [facility], who presented to emergency room on 09/15/2024 after she fell. She sustained an acute fracture of the greater trochanteric right hip. Dr. Peralta was consulted. Her MRI of the pelvis revealed fractures in the greater trochanteric right hip and fracture lines do extend into the intertrochanteric region, right hip on coronal image #9. Dr. Peralta did not recommend any surgery; however, she will need more physical therapy. The patient had dialysis today and about 1.9 L of fluid was removed. She said that she is doing well. She has not stood up, but we will try once the physical therapist come by. CURRENT MEDICATIONS: 1. Acetaminophen. 2. Allopurinol 100 mg daily. 3. Amlodipine 10 mg daily. 4. Carvedilil 25 mg b.i.d. 5. Famotidine 20 mg daily. 6. Hydralazine 50 mg p.o. b.i.d. 7. Hydromorphone 0.25 mg IV q.4. 8. Zofran 4 mg IV q.6. 9. Oxycodone. 10. Mysoline 250 mg p.o. daily. 11. Senokot 2 tabs p.o. p.r.n. PHYSICAL EXAMINATION: General: Awake, alert, and oriented. Vital Signs: Blood pressure of 118/59. HEENT: Anicteric sclerae. Normocephalic. Neck: Supple. JVD. Extremities: No edema. LABORATORY DATA: Hemoglobin 11.3, WBC 6200, and platelet count 124,000. Sodium 135, potassium 4, chloride 97, CO2 is 26.9, BUN 41, creatinine 5.5, glucose 88, and phosphorus 6.3. ASSESSMENT: 1. End-stage renal disease. 2. Hypertension. 3. Multiple allergic reactions to several antibiotics. 4. Acute fracture of the greater trochanteric right hip. PLAN: The patient will need physical therapy. Her next dialysis will be on . I will also start her on her binder sevelamer 800 mg p.o. t.i.d. with meals. DT: 15:10:27 TT: 16:19:00 Ref: [id number] - TID: [id number] MTDD
--- NOTE | 2024-09-17 16:32 | PC.NURSE ---
1430: pressure dressing removed from right arm. no s/s of active bleeding observed. patient denies pain or discomfort.
[2024-09-17] MEDS: SEVELAMER CARBONATE 800 MG TABLET PO (16:52)
[2024-09-17 16:53] LABS: Hepatitis A Antibody IgM Non Reactive (Non React); Hepatitis B Core Antibody IgM Non Reactive (Non React); Hepatitis B Surface Ab NonReact(Not Immune) (Immune); Hepatitis B Surface Antigen Non Reactive (Non React); Hepatitis C Antibody Non Reactive (Non React)
[2024-09-17] MEDS: hydrALAZINE HCL 25 MG TABLET 50 MG PO (21:00)
[2024-09-18] VITALS (13 sets, daily range): BP systolic 109–127; BP diastolic 54–75; PULSE 71–84; RESP 16–94; TEMP 36.1–36.3; O2SAT 92–94; BMI 25.0; BMI 13.0
[2024-09-18 05:18] LABS: Basophils % (Auto) 0 % (0-2.5); Eosinophils # (Auto) 0.2 Thou/mm3 (0.0-0.5); Eosinophils % (Auto) 3 % (0-10); Hematocrit 34.1 % (36.0-46.0); Hemoglobin 11.4 g/dL (12.0-16.0); Immature Granulocytes % (Auto) 1 % (0-0); Immature Granulocytes Auto 0.05 Thou/mm3 (0.00-0.00); Lymphocytes # (Auto) 1.3 Thou/mm3 (1.0-4.8); Lymphocytes % (Auto) 17 % (10-50); Mean Corpuscular HGB Conc 33.4 g/dl (31.0-37.0); Mean Corpuscular Hemoglobin 36.2 pg (25.0-35.0); Mean Corpuscular Volume 108 fL (80-100); Monocytes # (Auto) 0.9 Thou/mm3 (0.0-0.8); Monocytes % (Auto) 12 % (0-12); Neutrophils # (Auto) 5.1 Thou/mm3 (1.8-7.7); Neutrophils % (Auto) 67 % (37-80); Nucleated Red Blood Cell % 0 /100 WBC (0); Platelet Count 155 Thou/mm3 (140-440); RDW Standard Deviation 63.3 fL (36.4-46.3); Red Blood Count 3.15 Miln/mm3 (4.00-5.20); White Blood Count 7.6 Thou/mm3 (3.6-11.0)
[2024-09-18] MEDS: HEPARIN SOD INJ 5000 UNIT/ML VIAL SC ×2 (05:30→20:48)
[2024-09-18 06:16] LABS: Alanine Aminotransferase 520 U/L (10-49); Albumin, Serum 3.4 gm/dL (3.4-4.8); Albumin/Globulin Ratio 1.5 (1.2-2.2); Alkaline Phosphatase 340 U/L (46-116); Anion Gap 12 (7-16); Aspartate Amino Transferase 264 U/L (0-34); BUN/Creatinine Ratio 6 Ratio (12-20); Bilirubin,Total 0.3 mg/dL (0.3-1.2); Blood Urea Nitrogen 24 mg/dL (9-23); Calcium 8.1 mg/dL (8.3-10.6); Calcium (Corrected) 8.6 mg/dL (8.5-10.1); Carbon Dioxide 27.6 mMol/L (20.0-31.0); Chloride 98 mMol/L (98-107); Estimated Creatinine Clearance 7.9 mL/min (>60); Globulin 2.2 gm/dL (2.3-3.5); Glucose 102 mg/dL (74-106); Osmolality,Calculated 279 (275-295); Phosphorous 4.8 mg/dL (2.4-5.1); Potassium 3.8 mMol/L (3.4-5.1); Sodium 138 mMol/L (136-145); Total Protein 5.6 gm/dL (5.7-8.2); eGFR 10 See Note
[2024-09-18] MEDS: hydrALAZINE HCL 25 MG TABLET 50 MG PO (08:55)
[2024-09-18] MEDS: FAMOTIDINE INJ 10 MG/ML VIAL 2 ML 20 MG IVP (08:56)
[2024-09-18] MEDS: SEVELAMER CARBONATE 800 MG TABLET PO ×2 (08:56→17:55)
[2024-09-18] MEDS: allopurinoL 100 MG TABLET PO (08:56)
[2024-09-18] MEDS: carVEDILOL 12.5 MG TABLET 25 MG PO (08:56)
[2024-09-18] MEDS: amLODIPine BESYLATE 5 MG TABLET 10 MG PO (08:58)
[2024-09-18] MEDS: ASPIRIN EC 81 MG TABEC PO (08:58)
--- NOTE | 2024-09-18 08:59 | PC.SS ---
SS follow up: sent updated clinicals to [facility] via [facility]. Also sent [facility] via file exchange.
[2024-09-18] MEDS: PRIMIDONE 50 MG TABLET 250 MG PO (10:39)
--- NOTE | 2024-09-18 11:00 | XR_ITS ---
Examination: Abdomen sonogram, Limited Date and time of exam: September 18, 2024 1148 hours INDICATIONS: Elevated liver enzymes on laboratory examination this week Technique: Real-time alvarado scale transabdominal sonographic images of the upper abdomen obtained. Findings: Absent gallbladder Normal common bile duct 0.4 cm Pancreatic head 2.2 cm Liver normal size 13.7 cm fatty infiltration lobular contour Normal hepatopedal portal venous flow Patent IVC IMPRESSION: Cirrhosis pattern, fatty liver, no focal liver lesions
--- NOTE | 2024-09-18 11:08 | ESPR_ITS ---
RE: GAEL YOU : 1940 DATE OF SERVICE: 09/18/2024 HISTORY OF PRESENT ILLNESS: Briefly, she is an 84-year-old woman with longstanding hypertension, gout, arthritis, and ESRD on dialysis since 11/2018, dialyzing on Monday, , and Monday at [facility], who presented to the emergency room on 09/15/2024 after she fell. She sustained an acute fracture of the greater trochanteric right hip, which does not need any surgery. The patient was doing physical therapy earlier today and was able to walk a few steps. Yesterday was dialysis day and we have removed about 1.9 liters of fluids. CURRENT MEDICATIONS: 1. Acetaminophen. 2. Allopurinol. 3. Amlodipine 10 mg daily. 4. Aspirin. 5. Carvedilol. 6. Famotidine. 7. Heparin. 8. Hydralazine. 9. Hydromorphone. 10. Ondansetron. 11. Oxycodone. 11. Mysoline 250 mg daily. 12. Sevelamer 800 mg b.i.d. with meals. PHYSICAL EXAMINATION: General: She is awake. Vital Signs: Blood pressure of 111/58, heart rate of 73. HEENT: Anicteric sclerae. Normocephalic. Neck: Supple. No JVD. Chest and Lungs: Symmetrical expansion. Extremities: No edema. LABORATORY DATA: Hemoglobin 11.4, WBC 7,600, platelet count 155,000. Sodium 138, potassium 3.8, chloride 98, CO2 27.6, BUN 24, creatinine 4, calcium 8.6, and phosphorus 4.8. ASSESSMENT: 1. End-stage renal disease. 2. Hypertension. 3. Multiple allergic reactions to several antibiotics. 4. Gout. 5. Acute fracture of the greater trochanteric, right hip. No surgery needed. PLAN: The patient will continue her physical therapy. She will be dialyzed again tomorrow. We will continue supportive treatment. We will continue her binder sevelamer 800 mg p.o. t.i.d. with meals. DT: 09:58:38 TT: 11:01:00 Ref: [id number] - TID: [id number] MTDD
--- NOTE | 2024-09-18 11:31 | ESPR_ITS ---
Documentation for date of: 09/18/24 Subjective Subjective Interval history: Patient examined bedside today. No acute overnight events. Patient reports he is doing well and wants to go home. She is wondering if she can go home today. She denies any pain fever or right upper quadrant pain no other complaints at this time. Exam Vital Signs Temp Pulse Resp BP Pulse Ox O2 Del Method 96.9 F 73 17 111/58 L 93 L Room Air 09/18/24 08:00 09/18/24 08:58 09/18/24 08:00 09/18/24 08:58 09/18/24 08:00 09/18/24 08:00 Narrative Exam General: AAOx3, NAD, frail elderly female, wearing glasses, HEENT: Moist mucous membranes, conjunctiva clear, EOMI, PERRLA, either bruise under right eyelid or port wine stain Cardiovascular: S1, S2, radial pulses +2 bilat, RRR Pulmonary: CTAB bilat no cough, no wheezing GI: No tenderness to light or deep palpitation, no guarding, rigidity, rebound tenderness or distension Extremities: Trace edema in lower extremities bilaterally, dorsalis pedis pulses +2 bilaterally Skin: Diffuse purpura throughout upper and lower extremities Neuro: AAOx3, no focal motor or sensory deficits in the UE or LE bilat Psych: Good judgement, thought and behavior. Cooperative Objective Labs 09/19/24 05:24 09/19/24 05:24 Labs: Laboratory Results - last 24 hr 09/17/24 09/18/24 05:10 04:09 WBC 7.6 RBC 3.15 L Hgb 11.4 L Hct 34.1 L MCV 108 H MCH 36.2 H MCHC 33.4 RDW Std Deviation 63.3 H Plt Count 155 D Neut % (Auto) 67 Lymph % (Auto) 17 [place] % (Auto) 12 Eos % (Auto) 3 Baso % (Auto) 0 Neut # (Auto) 5.1 Lymph # (Auto) 1.3 [place] # (Auto) 0.9 H Eos # (Auto) 0.2 Baso # (Auto) 0.0 Immature Gran # (Auto) 0.05 H Absolute Nucleated RBC 0.00 Immature Gran % 1 H Nucleated RBC % 0 Sodium 138 Potassium 3.8 Chloride 98 Carbon Dioxide 27.6 Anion Gap 12 BUN 24 H Creatinine 4.0 H D Estim Creat Clear Calc 7.9 L eGFR 10 L* BUN/Creatinine Ratio 6 L Glucose 102 Calculated Osmolality 279 Calcium 8.1 L Corrected Calcium 8.6 Phosphorus 4.8 Magnesium 2.0 Total Bilirubin 0.3 AST 264 H ALT 520 H* Alkaline Phosphatase 340 H D Total Protein 5.6 L Albumin 3.4 Globulin 2.2 L Albumin/Globulin Ratio 1.5 Hepatitis A IgM Ab Non Reactive Hep Bs Antigen Non Reactive Hep Bs Antibody NonReact(Not Immune) L Hep B Core IgM Ab Non Reactive Hepatitis C Antibody Non Reactive Quality Measures Quality Measures none Advance care planning discussed with:: patient Assessment & Plan Assessment Current Active Medications: Generic Name Dose Route Start Last Admin Trade Name Freq PRN Reason Stop Dose Admin Acetaminophen 650 mg 09/15/24 23:59 09/17/24 09:13 Acetaminophen 325 Mg Tablet PO 10/15/24 21:27 650 mg Q6H PRN Administration PAIN 1-3 OR FEVER > 101 Allopurinol 100 mg 09/16/24 09:00 09/18/24 08:56 Allopurinol 100 Mg Tablet PO 10/16/24 08:59 100 mg QDAY CALEB Administration Amlodipine Besylate 10 mg 09/16/24 09:00 09/18/24 08:58 Amlodipine Besylate 5 Mg Tablet PO 10/16/24 08:59 10 mg QDAY CALEB Administration Aspirin 81 mg 09/18/24 09:00 09/18/24 08:58 Aspirin Ec 81 Mg Tabec PO 10/18/24 08:59 81 mg QDAY CALEB Administration Carvedilol 25 mg 09/16/24 21:52 09/18/24 08:56 Carvedilol 12.5 Mg Tablet PO 10/16/24 21:51 25 mg BID CALEB Administration Famotidine 20 mg 09/16/24 09:00 09/18/24 08:56 Famotidine Inj 10 Mg/Ml Vial 2 Ml IVP 10/16/24 08:59 20 mg DAILY CALEB Administration Heparin Sodium (Porcine) 5,000 unit 09/15/24 22:00 09/18/24 05:30 Heparin Sod Inj 5000 Unit/Ml Vial SC 09/29/24 21:59 5,000 unit Q8HR CALEB Administration Hydralazine HCl 50 mg 09/16/24 21:52 09/18/24 08:55 Hydralazine Hcl 25 Mg Tablet PO 10/16/24 21:51 50 mg BID CALEB Administration Hydromorphone HCl 0.25 mg 09/16/24 13:36 09/17/24 12:27 Hydromorphone Inj 2 Mg/Ml Vial IVP 09/21/24 13:35 0.25 mg Q4HR PRN Administration Pain 8-10 Albumin Human 25 gm in 100 mls @ 100 mls/hr 09/17/24 09:17 Albuminar-25 Ivpb IV PRN PRN DIALYSIS Ondansetron HCl 4 mg 09/15/24 21:28 09/15/24 21:53 Ondansetron Inj 2 Mg/Ml Inj 2 Ml IV 10/15/24 21:27 4 mg Q6H PRN Administration NAUSEA OR VOMITING Protocol Oxycodone/Acetaminophen 1 tab 09/16/24 13:35 09/16/24 21:46 Oxycodone/Apap 5/325 Tablet PO 09/21/24 13:34 1 tab Q6HR PRN Administration Pain 4-7 Pharmacy Consult 1 each 09/16/24 13:37 Pharmacy Renal Dose Adjustment 1 Ea XX 10/16/24 13:36 PRN PRN CONSULT Primidone 250 mg 09/16/24 09:00 09/18/24 10:39 Primidone 50 Mg Tablet PO 09/21/24 08:59 250 mg QDAY CALEB Administration Sennosides 2 tab 09/15/24 21:28 Senna Tablet PO 10/15/24 21:27 BID PRN CONSTIPATION Protocol Sevelamer Carbonate 800 mg 09/17/24 17:30 09/18/24 08:56 Sevelamer Carbonate 800 Mg Tablet PO 10/17/24 17:29 800 mg TIDWM CALEB Administration Plan Assessment A 84-year-old female who came to the ED with mechanical fall, no loss of consciousness, found to have hip fracture, orthopedic surgery recommended admitting the patient, and getting an MRI to further evaluate the fracture. #Acute fractures greater trochanter right hip s/p mechanical fall Face CT shows no acute facial fracture, head CT is negative for acute hemorrhage or mass effect, pelvis CT shows acute fracture greater trochanter right hip, no definite intertrochanteric extension however MRI hip without contrast is needed to confirm. EKG shows sinus rhythm with first-degree AV block. MRI shows fractures of the greater trochanter of the right hip Ortho, Dr. Peralta, recommends weightbearing exercises for the next 4 to 6 weeks PT recommends SNF Plan: ? Orthopedic surgeon Dr. Peralta is consulted, patient recommendations ? Continue with weightbearing exercises ? IV Dilaudid 0.25 mg every 4 hours as needed for pain ? Physical therapy #E. coli UTI #Delirium Has some resistance, however we will treat as patient is symptomatic Patient appears to be more confused, however we will now treat Plan: ? Levaquin 750 mg every day p.o. #Elevated transaminases, worsening AST 520; AST 264 Unsure of liver injury insult Patient was not given hepatotoxic agents Hepatitis panel negative Plan: ? Continue to trend liver markers ? Follow-up liver ultrasound ? Follow-up a.m. ammonia to rule out encephalopathy #History of hypertension #History of end-stage renal disease Will consult Dr Ramirez to continue with regular hemodialysis schedule, , , S. Continue home medications for hypertension Plan: ? Continue home carvedilol 25 mg twice daily ? Continue home hydralazine 50 mg twice daily ? Continue home amlodipine 10 mg daily ? Continue dialysis schedule // ? Trend lytes ? Sevelamer 800 mg 3 times daily with meals #History of CVA #History of tremors Patient takes baby aspirin at home, which will be held in anticipation of possible surgery. Plan: ?Continue primidone for tremors 100 mg in the morning, 200 mg at night #History of gout Plan: ? Continue allopurinol #Health Maintenance Disposition: MedSurg DVT prophylaxis: Heparin GI prophylaxis: Pepcid Diet: Renal CODE STATUS: Full Patient seen and care discussed with my attending physician, Dr. Sven Saucedo, PGY-1 Attending Provider Attestation/Addendum I have discussed and was present for the essential components of the history, physical examination, diagnosis, and treatment plan with the resident. I agree with the patient's care as documented by the resident and amended herein by me. Steven Machuca DO. Although this document has been carefully reviewed, there may still be some phonetic and other typographical errors. These errors are purely grammatical due to imperfections in the software program and should not be construed in any way to compromise the substance of the patient's medical care during this visit.
--- NOTE | 2024-09-18 11:41 | PC.SS ---
Addendum entered by KAVITHA Villaseñor 09/18/24 14:45: Rounding note: patient's liver function has elevated. Patient now agreeable to lab draws. Patient to d/c to [facility] at time of discharge. Original Note: SS update: patient pending repeat labs and liver ultrasound. [facility] updated.
--- NOTE | 2024-09-18 11:47 | PC.NURSE ---
Pt continues to refuse lab draws, medications, and Liver US despite several verbal prompts, encouragement and education. Patient continues to say she is tired of being here and just wants to leave. Dr. Saucedo at bedside communicating with patient.
--- NOTE | 2024-09-18 13:17 | PC.NURSE ---
Attempted to administer PRN stool softener to patient for constipation. Last BM 09/15/24. Patient refusing at this time stating she does not want to take any pills right now and that she does not feel the urge to go to the bathroom. Dr. Saucedo aware. No new orders.
[2024-09-18] MEDS: LEVOFLOXACIN 250 MG TABLET 750 MG PO (14:54)
[2024-09-18 15:05] LABS: Alanine Aminotransferase 426 U/L (10-49); Albumin, Serum 3.4 gm/dL (3.4-4.8); Albumin/Globulin Ratio 1.5 (1.2-2.2); Alkaline Phosphatase 306 U/L (46-116); Anion Gap 10 (7-16); Aspartate Amino Transferase 162 U/L (0-34); BUN/Creatinine Ratio 6 Ratio (12-20); Bilirubin,Total 0.3 mg/dL (0.3-1.2); Blood Urea Nitrogen 26 mg/dL (9-23); Calcium 8.1 mg/dL (8.3-10.6); Calcium (Corrected) 8.6 mg/dL (8.5-10.1); Carbon Dioxide 27.7 mMol/L (20.0-31.0); Chloride 98 mMol/L (98-107); Creatine Kinase < 15 U/L (34-171); Creatinine (Component) 4.4 mg/dL (0.6-1.3); Estimated Creatinine Clearance 7.2 mL/min (>60); Globulin 2.2 gm/dL (2.3-3.5); Glucose 121 mg/dL (74-106); Osmolality,Calculated 277 (275-295); Potassium 4.1 mMol/L (3.4-5.1); Sodium 136 mMol/L (136-145); Total Protein 5.6 gm/dL (5.7-8.2); eGFR 9 See Note
[2024-09-19] VITALS (26 sets, daily range): BP systolic 83–182; BP diastolic 51–85; PULSE 74–89; RESP 16–18; TEMP 36.1–36.6; O2SAT 95–97
[2024-09-19] MEDS: HYDROmorphone INJ 2 MG/ML VIAL 0.25 MG IVP ×2 (02:43→09:16)
[2024-09-19 05:44] LABS: Basophils % (Auto) 0 % (0-2.5); Eosinophils # (Auto) 0.2 Thou/mm3 (0.0-0.5); Eosinophils % (Auto) 3 % (0-10); Hematocrit 35.8 % (36.0-46.0); Hemoglobin 11.8 g/dL (12.0-16.0); Immature Granulocytes % (Auto) 1 % (0-0); Immature Granulocytes Auto 0.07 Thou/mm3 (0.00-0.00); Lymphocytes # (Auto) 0.9 Thou/mm3 (1.0-4.8); Lymphocytes % (Auto) 11 % (10-50); Mean Corpuscular Hemoglobin 35.4 pg (25.0-35.0); Mean Corpuscular Volume 108 fL (80-100); Monocytes # (Auto) 0.8 Thou/mm3 (0.0-0.8); Monocytes % (Auto) 10 % (0-12); Neutrophils # (Auto) 5.5 Thou/mm3 (1.8-7.7); Neutrophils % (Auto) 74 % (37-80); Nucleated Red Blood Cell % 0 /100 WBC (0); Platelet Count 181 Thou/mm3 (140-440); Red Blood Count 3.33 Miln/mm3 (4.00-5.20); White Blood Count 7.4 Thou/mm3 (3.6-11.0)
[2024-09-19 06:18] LABS: Ammonia < 10 uMol/L (11-32)
[2024-09-19 06:44] LABS: Alanine Aminotransferase 345 U/L (10-49); Albumin, Serum 3.6 gm/dL (3.4-4.8); Albumin/Globulin Ratio 1.5 (1.2-2.2); Alkaline Phosphatase 300 U/L (46-116); Anion Gap 12 (7-16); Aspartate Amino Transferase 87 U/L (0-34); BUN/Creatinine Ratio 7 Ratio (12-20); Bilirubin,Total 0.3 mg/dL (0.3-1.2); Blood Urea Nitrogen 34 mg/dL (9-23); Calcium 8.6 mg/dL (8.3-10.6); Calcium (Corrected) 8.9 mg/dL (8.5-10.1); Carbon Dioxide 27.4 mMol/L (20.0-31.0); Chloride 97 mMol/L (98-107); Estimated Creatinine Clearance 6.3 mL/min (>60); Globulin 2.4 gm/dL (2.3-3.5); Glucose 118 mg/dL (74-106); Magnesium 2.1 mg/dL (1.6-2.6); Osmolality,Calculated 280 (275-295); Phosphorous 4.9 mg/dL (2.4-5.1); Potassium 4.5 mMol/L (3.4-5.1); Sodium 136 mMol/L (136-145); eGFR 8 See Note
--- NOTE | 2024-09-19 08:47 | PC.NURSE ---
called dialysis, tai causey hold blood pressure meds this AM.
[2024-09-19] MEDS: LEVOFLOXACIN 250 MG TABLET PO (08:59)
[2024-09-19] MEDS: HEPARIN SOD INJ 5000 UNIT/ML VIAL SC ×2 (08:59→20:24)
[2024-09-19] MEDS: ASPIRIN EC 81 MG TABEC PO (08:59)
[2024-09-19] MEDS: FAMOTIDINE INJ 10 MG/ML VIAL 2 ML 20 MG IVP (08:59)
[2024-09-19] MEDS: PRIMIDONE 50 MG TABLET 250 MG PO (08:59)
[2024-09-19] MEDS: SEVELAMER CARBONATE 800 MG TABLET PO ×3 (08:59→17:48)
--- NOTE | 2024-09-19 09:40 | PC.SS ---
SS spoke to Cristiana from [facility] who explained they are able to accept pt today.
[2024-09-19] MEDS: ONDANSETRON INJ 2 MG/ML INJ 2 ML 4 MG IV ×3 (10:10→23:39)
[2024-09-19] MEDS: ALBUMIN HUMAN 25% IVPB 25 GM/100 ML BTL IV (13:51)
--- NOTE | 2024-09-19 13:57 | ESDS_ITS ---
Planned Discharge Date 09/19/24 DS: Providers Provider Date of admission: 09/15/24 21:28 Primary care physician: Brooklyn Ramon MD Admitting Provider: Reji Beckman MD Attending Provider on Admission: Jonathan Machuca DO Consults: 09/15/24 20:43 Consult to Orthopedic Stat Comment: Consulting Provider: Norm Peralta 09/15/24 20:48 Referral Physical Therapy Stat Comment: Physician Instructions: Instructions: Greater trochanteric fracture nondisplaced. Please get her up weight-bear to tolerance right lower extremity. She has a four-wheel walker at home I think that is too many wheels see if she would be safer with 2 wheeled versus moss picker walker thank you 09/15/24 21:29 Referral Physical Therapy Routine Comment: Physician Instructions: 09/15/24 21:57 Consult to Nephrology Routine Comment: regular HD TTS Consulting Provider: Brittanie Ramirez 09/16/24 08:00 Referral Speech Therapy Urgent Comment: Referral Wound Care Urgent Comment: 09/18/24 19:31 Referral Nutritional Services Routine Comment: wound Attending Provider on DC: Jonathan Machuca DO Discharging Provider: Jonathan Machuca DO DS: Diagnosis Problem List Completed Was Problem List Reviewed/Reconciled?: Yes Hospital Course Hospital Course Hospital course: Luciana is a 84-year-old female PMHX of ESRD (on HD, T//, Dr. Arita), ischemic CVA, hypertension, and gout who was admitted to [facility] on September 15, 2024 for an evaluation of acute fracture of the greater trochanter of the right hip status post mechanical fall. Patient had come in with a blood pressure of 182 systolic, afebrile, saturating well on room air. Pertinent labs were creatinine 5.0, sodium 134, hemoglobin 15.4, glucose ~100 and unremarkable AST and ALT. Patient had head CT which was unremarkable for hemorrhage, subdural hematoma including no C-spine fracture. Orthopedic surgery was consulted, Dr Peralta who had recommended further imaging studies including MRI pelvis. Medicine was consulted and patient admitted to the floors. MRI of pelvis was ordered which had showed acute greater trochanteric fracture of the right hip pain and partial. Orthopedic surgery had seen patient and had recommended conservative management including weightbearing exercises for 4 to 6 weeks. Physical therapy also had seen the patient who had recommended patient to be discharged to SNF. Patient and patient's family was agreeable for patient to be discharged to SNF. Patient also had UTI that was managed with Levaquin 750 mg. On day before discharge, patient had elevation of liver enzymes, ALT 521, AST 264. Liver ultrasound was ordered which showed chronic cirrhosis and fatty liver. Ammonia level was also ordered as there was concern for delirium, however it was unremarkable. Patient also had continue dialysis schedule as her kidney doctor, Dr. Ramirez was consulted. Liver enzymes continue to downtrend and patient was then discharged with the following recommendations. Discharge instructions: Follow-up with your PCP within 1 week Have a repeat CBC with your PCP to evaluate your liver enzyme levels as they were elevated in the hospital Take your medicines as prescribed Finish up your antibiotic course as prescribed, Levaquin Take your new medicine, Sevelamer as prescribed as this is for your kidney disease Return to ER if your symptoms worsen or return Follow-up with your kidney doctor within 1 week, Dr. Ramirez Problem list: #Acute fractures greater trochanter right hip s/p mechanical fall #E. coli UTI #Delirium #Elevated transaminases, improving #History of hypertension #History of end-stage renal disease #History of CVA #History of tremors #History of gout Discharge summary was reviewed with my attending Dr. Sven Saucedo, PGY-1 Time Spent with Patient Time attestation: Total time spent providing and/or coordinating discharge services: Time spent: Greater than 30 minutes Exam Vital Signs Temp Pulse Resp BP Pulse Ox O2 Del Method 97.3 F 78 18 83/55 L 96 Room Air 09/19/24 11:41 09/19/24 13:45 09/19/24 11:41 09/19/24 13:45 09/19/24 08:00 09/19/24 08:00 Narrative Exam General: AAOx3, NAD, frail elderly female, wearing glasses, HEENT: Moist mucous membranes, conjunctiva clear, EOMI, PERRLA, either bruise under right eyelid or port wine stain Cardiovascular: S1, S2, radial pulses +2 bilat, RRR Pulmonary: CTAB bilat no cough, no wheezing GI: No tenderness to light or deep palpitation, no guarding, rigidity, rebound tenderness or distension Extremities: Trace edema in lower extremities bilaterally, dorsalis pedis pulses +2 bilaterally Skin: Diffuse purpura throughout upper and lower extremities Neuro: AAOx3, no focal motor or sensory deficits in the UE or LE bilat Psych: Good judgement, thought and behavior. Cooperative Discharge Plan Plan Patient Disposition: Xfer Skilled Nsg Fac (SNF) Patient condition on transfer: Stable and Benefits outweigh risks Care Plan Goals: Discharge instructions: Follow-up with your PCP within 1 week Have a repeat CBC with your PCP to evaluate your liver enzyme levels as they w ere elevated in the hospital Take your medicines as prescribed Continue with PT at your SNF, and weight-bearing exercises Continue to follow up with your kidney doctor, Dr. Ramirez within one week Finish up your antibiotic course as prescribed, Levaquin Take your new medicine, Sevelamer as prescribed as this is for your kidney disease Return to ER if your symptoms worsen or return Follow-up with your kidney doctor within 1 week, Dr. Ramirez Prescriptions/Referrals Prescriptions/Med Rec: New sevelamer carbonate 800 mg tablet 800 mg PO TID 30 Days Qty: 90 0RF Rx Instructions: Take one tablet by mouth three times a day levofloxacin 250 mg tablet 250 mg PO QDAY 4 Days Qty: 4 0RF Rx Instructions: Take one tablet by mouth every day Continued primidone 50 MG tablet 250 mg PO QDAY Qty: 0 Rx Instructions: 100MG X1 IN AM, X2 IN THE PM amlodipine [Norvasc] 5 MG tablet 10 mg PO QDAY Qty: 0 allopurinol [Zyloprim] 100 MG tablet 100 mg PO QDAY Qty: 0 montelukast [Singulair] 10 MG tablet 10 mg PO QAM Qty: 0 fluticasone propionate 50 mcg/actuation [place],Suspension 2 spray NASAL BID Qty: 0 Rx Instructions: 2 SPRAYS AT NIGHT hydralazine 50 mg tablet 50 mg PO BID Rx Instructions: Only on the mornings when she does not go to dialysis. aspirin 81 mg Tablet,Delayed Release (Dr/Ec) 81 mg PO QDAY Praluent Pen 75 mg/mL pen injector 75 mg SUBCUT UD Patient Comments: INJECT 1 DOSE UNDER THE SKIN EVERY 2 WEEKS Rx Instructions: Every two weeks carvedilol 25 mg Tablet 25 mg PO BID Rx Instructions: must administer with a meal/food Referrals: Brooklyn Ramon MD [Primary Care Provider] - Patient/Caregiver Discharge Instructions Education Materials: Kidney Disease Calcium Phosphorus, After a Hip Fracture: Common Questions, CKD Dc Print Language: Bangladeshi Stand Alone Forms: Adri Award Info., Patient Portal Info Letter Discharge Order Discharge Orders: Discharge (Routine); Ordered 09/20/24 Ordered By: Cherelle Garcia Quality Discharge Quality Measures VTE prophylaxis (Heparin) Attestestation Attestation Patient not discharged today as expected, likely tomorrow
--- NOTE | 2024-09-19 14:18 | ESPR_ITS ---
RE: GAEL YOU : 1940 DATE OF SERVICE: 09/19/2024 HISTORY OF PRESENT ILLNESS: Briefly, she is an 84-year-old woman with longstanding hypertension, gout, arthritis, and ESRD on dialysis through 11/2018, dialyzing every Monday, , and Monday at [facility], who presented to the emergency room on 09/15/2024 after she fell. She sustained an acute fracture of the greater trochanteric right hip, which does not need any surgery. Today, she is on dialysis and was very weak to go for physical therapy. She is currently tolerating dialysis today. CURRENT MEDICATIONS: 1. Acetaminophen. 2. Allopurinol. 3. Amlodipine 10 mg daily. 4. Aspirin. 5. Carvedilol. 6. Famotidine. 7. Heparin. 8. Hydralazine. 9. Hydromorphone. 10. Ondansetron. 11. Oxycodone. 12. Mysoline 250 mg daily. 13. Sevelamer 800 mg p.o. t.i.d. with meals. PHYSICAL EXAMINATION: General: She is awake, on dialysis, tolerating dialysis. Vital Signs: Blood pressure 174/79 mmHg, heart rate of 78. HEENT: Anicteric sclerae. Normocephalic. Neck: Supple. No JVD. Chest and Lungs: Symmetrical expansion. Clear breath sounds. Heart: Without murmur. Abdomen: Soft and nontender. Extremities: No edema. LABORATORY DATA: Hemoglobin 11.8, WBC 7,400, plate count 181,000. Sodium 136, potassium 4.5, chloride 97, CO2 27.4, BUN 34, creatinine 5, calcium 8.6, phosphorus 4.9, ALT 345, AST 87. ASSESSMENT: 1. End-stage renal disease, currently on dialysis. 2. Elevated liver enzymes, unknown etiology, now improved. 3. Hypertension. 4. Multiple allergic reactions to several antibiotics. 5. Gout. 6. Acute fracture of the greater trochanteric, right hip. No surgery needed. PLAN: Dialysis will be continued. Next analysis will be on Monday. Continue physical therapy as prescribed. DT: 13:08:24 TT: 14:16:00 Ref: [id number] - TID: [id number] [facility]
[2024-09-19] MEDS: LACTULOSE SYRUP 20 GM/30 ML UDC PO ×2 (15:31→22:00)
--- NOTE | 2024-09-19 16:18 | PC.SS ---
Pt is still waiting to have bowel movement to d/c to [facility], . Nursing staff to contact [facility] at [phone] if pt still has not had BM tonight.
--- NOTE | 2024-09-19 16:50 | ESPR_ITS ---
Documentation for date of: 09/19/24 Subjective - Hospitalist Subjective Interval history: No acute events overnight, vital signs stable, patient afebrile, liver function improved, BUN 54, creatinine 5, stable hemoglobin 1.8. No BMs overnight Exam Vital Signs Temp Pulse Resp BP Pulse Ox O2 Del Method 97.1 F 76 17 148/75 H 95 Room Air 09/19/24 16:00 09/19/24 16:00 09/19/24 16:00 09/19/24 16:00 09/19/24 16:00 09/19/24 16:00 Narrative General: NAD Eyes: PERRL, EOMI. HEENT: NCAT Neck: Supple Lung: CTAB Heart: Normal rate and regular rhythm, no murmur. Abdomen: Soft, nontender, normal bowel sounds heard, no organomegaly. Neuro: Alert and oriented to time, place and person, no focal deficits. Gross sensation intact in b/l LE Objective - Hospitalist Labs Diagram: 09/19/24 05:24 09/19/24 05:24 Labs: Laboratory Results - last 24 hr 09/19/24 05:24 WBC 7.4 RBC 3.33 L Hgb 11.8 L Hct 35.8 L MCV 108 H MCH 35.4 H MCHC 33.0 RDW Std Deviation 60.0 H Plt Count 181 Neut % (Auto) 74 Lymph % (Auto) 11 [place] % (Auto) 10 Eos % (Auto) 3 Baso % (Auto) 0 Neut # (Auto) 5.5 Lymph # (Auto) 0.9 L [place] # (Auto) 0.8 Eos # (Auto) 0.2 Baso # (Auto) 0.0 Immature Gran # (Auto) 0.07 H Absolute Nucleated RBC 0.00 Immature Gran % 1 H Nucleated RBC % 0 Sodium 136 Potassium 4.5 Chloride 97 L Carbon Dioxide 27.4 Anion Gap 12 BUN 34 H Creatinine 5.0 H* D Estim Creat Clear Calc 6.3 L eGFR 8 L* BUN/Creatinine Ratio 7 L Glucose 118 H Calculated Osmolality 280 Calcium 8.6 Corrected Calcium 8.9 Phosphorus 4.9 Magnesium 2.1 Total Bilirubin 0.3 AST 87 H ALT 345 H Alkaline Phosphatase 300 H Ammonia < 10 L Total Protein 6.0 Albumin 3.6 Globulin 2.4 Albumin/Globulin Ratio 1.5 Assessment & Plan Plan: A 84-year-old female who came to the ED with mechanical fall, no loss of consciousness, found to have hip fracture, orthopedic surgery recommended admitting the patient, and getting an MRI to further evaluate the fracture. #Constipation -Lactulose 3 times daily #Acute fractures greater trochanter right hip s/p mechanical fall Plan: ? Weightbearing exercises for the next 4 to 6 weeks, no surgical intervention required at this time per orthopedic surgery. Patient will be discharged to SNF for continued physical therapy ? Continue with weightbearing exercises ? IV Dilaudid 0.25 mg every 4 hours as needed for pain ? Physical therapy #E. coli UTI #Delirium Plan: ? Levaquin 750 mg every day p.o. #Elevated transaminases, improved Plan: ?CTM #History of hypertension #History of end-stage renal disease Will consult Dr Ramirez to continue with regular hemodialysis schedule, T, , S. Continue home medications for hypertension Plan: ? Continue home carvedilol 25 mg twice daily ? Continue home hydralazine 50 mg twice daily ? Continue home amlodipine 10 mg daily ? Continue dialysis schedule // ? Trend lytes ? Sevelamer 800 mg 3 times daily with meals #History of CVA #History of tremors Patient takes baby aspirin at home, which will be held in anticipation of possible surgery. Plan: ?Continue primidone for tremors 100 mg in the morning, 200 mg at night #History of gout Plan: ? Continue allopurinol #Health Maintenance Disposition: Likely discharge tomorrow on 09/20 to SNF once patient has bowel movement DVT prophylaxis: Heparin GI prophylaxis: Pepcid Diet: Renal CODE STATUS: Residency Coordinator Spent with Patient Time: Total time spent is greater than 50% in coordination of care (as documented) at patient's floor/unit and/or counseling patient: Time with patient: 25 - 35 minutes Reason for Continued Stay Reason for continued stay: further monitoring Quality Measures Quality Measures VTE prophylaxis (Heparin) Advance care planning discussed with:: patient
[2024-09-19] MEDS: carVEDILOL 12.5 MG TABLET 25 MG PO (20:21)
--- NOTE | 2024-09-19 21:30 | PC.NURSE ---
[facility] CONTACTED FOUR TIMES,NO ANSWER. SAM LE FROM [facility] CALLED,MADE AWARE THAT PATIENT STILL HAS NO BOWEL MOVEMENT,PROMISED TO INFORM DAY SHIFT RN ON DUTY.
[2024-09-19] MEDS: hydrALAZINE HCL 25 MG TABLET 50 MG PO (21:59)
[2024-09-20] VITALS (7 sets, daily range): BP systolic 130–170; BP diastolic 59–79; PULSE 76–87; RESP 17–18; TEMP 36–36.6; O2SAT 94–97
[2024-09-20] MEDS: hydrALAZINE INJ 20 MG/ML VIAL 10 MG IVP (00:49)
[2024-09-20] MEDS: ACETAMINOPHEN 325 MG TABLET 650 MG PO ×2 (02:15→12:56)
[2024-09-20] MEDS: SENNA TABLET 2 TAB PO (05:55)
[2024-09-20 06:01] LABS: Basophils # (Auto) 0.1 Thou/mm3 (0.0-0.2); Basophils % (Auto) 1 % (0-2.5); Eosinophils # (Auto) 0.1 Thou/mm3 (0.0-0.5); Eosinophils % (Auto) 1 % (0-10); Hematocrit 33.5 % (36.0-46.0); Hemoglobin 11.4 g/dL (12.0-16.0); Immature Granulocytes % (Auto) 1 % (0-0); Immature Granulocytes Auto 0.09 Thou/mm3 (0.00-0.00); Lymphocytes # (Auto) 1.1 Thou/mm3 (1.0-4.8); Lymphocytes % (Auto) 13 % (10-50); Mean Corpuscular Hemoglobin 36.1 pg (25.0-35.0); Mean Corpuscular Volume 106 fL (80-100); Monocytes % (Auto) 13 % (0-12); Neutrophils # (Auto) 5.5 Thou/mm3 (1.8-7.7); Neutrophils % (Auto) 71 % (37-80); Nucleated Red Blood Cell % 0 /100 WBC (0); Platelet Count 194 Thou/mm3 (140-440); RDW Standard Deviation 58.8 fL (36.4-46.3); Red Blood Count 3.16 Miln/mm3 (4.00-5.20); White Blood Count 7.8 Thou/mm3 (3.6-11.0)
[2024-09-20 06:28] LABS: Alanine Aminotransferase 205 U/L (10-49); Albumin/Globulin Ratio 1.8 (1.2-2.2); Alkaline Phosphatase 242 U/L (46-116); Anion Gap 11 (7-16); Aspartate Amino Transferase 38 U/L (0-34); BUN/Creatinine Ratio 5 Ratio (12-20); Bilirubin,Total 0.5 mg/dL (0.3-1.2); Blood Urea Nitrogen 17 mg/dL (9-23); Calcium 9.1 mg/dL (8.3-10.6); Calcium (Corrected) 9.1 mg/dL (8.5-10.1); Carbon Dioxide 29.4 mMol/L (20.0-31.0); Chloride 99 mMol/L (98-107); Creatinine (Component) 3.5 mg/dL (0.6-1.3); Globulin 2.2 gm/dL (2.3-3.5); Glucose 103 mg/dL (74-106); Osmolality,Calculated 279 (275-295); Sodium 139 mMol/L (136-145); Total Protein 6.2 gm/dL (5.7-8.2); eGFR 12 See Note
--- NOTE | 2024-09-20 07:45 | PC.SS ---
Addendum entered by KAVITHA Villaseñor 09/20/24 12:17: Patient informs, her daughter Dorcas will be transporting her to SNF via private vehicle. Bedside RN Chen sanchez, Seema at [facility] informed. Patient ready for d/c. Addendum entered by KAVITHA Villaseñor 09/20/24 11:12: Seema at [facility] confirms they can accept the patient today. Patient's daughter Frida also aware. Pending ETA for transport. Addendum entered by KAVITHA Villaseñor 09/20/24 10:30: Update: per bedside MALIA Siddiqui, patient had a Bowel movement, pending change in medications. Original Note: SS follow up: per bedside MALIA Siddiqui, the patient has not had a bowel movement as of yet. Plan is for the patient to d/c to [facility].
[2024-09-20] MEDS: PRIMIDONE 50 MG TABLET 250 MG PO (07:59)
[2024-09-20] MEDS: hydrALAZINE HCL 25 MG TABLET 50 MG PO (08:00)
[2024-09-20] MEDS: LEVOFLOXACIN 250 MG TABLET PO (08:00)
[2024-09-20] MEDS: SEVELAMER CARBONATE 800 MG TABLET PO ×2 (08:01→12:08)
[2024-09-20] MEDS: FAMOTIDINE 20 MG TABLET PO (08:01)
[2024-09-20] MEDS: amLODIPine BESYLATE 5 MG TABLET 10 MG PO (08:01)
[2024-09-20] MEDS: ASPIRIN EC 81 MG TABEC PO (08:01)
[2024-09-20] MEDS: carVEDILOL 12.5 MG TABLET 25 MG PO (08:02)
[2024-09-20] MEDS: HEPARIN SOD INJ 5000 UNIT/ML VIAL SC (08:14)
--- NOTE | 2024-09-20 11:39 | ESDS_ITS ---
Planned Discharge Date 09/20/24 DS: Providers Provider Date of admission: 09/15/24 21:28 Primary care physician: Brooklyn Ramon MD Admitting Provider: Reji Beckman MD Attending Provider on Admission: Jonathan Machuca DO Consults: 09/15/24 20:43 Consult to Orthopedic Stat Comment: Consulting Provider: Norm Peralta 09/15/24 20:48 Referral Physical Therapy Stat Comment: Physician Instructions: Instructions: Greater trochanteric fracture nondisplaced. Please get her up weight-bear to tolerance right lower extremity. She has a four-wheel walker at home I think that is too many wheels see if she would be safer with 2 wheeled versus sweet pickled fruit maker walker thank you 09/15/24 21:29 Referral Physical Therapy Routine Comment: Physician Instructions: 09/15/24 21:57 Consult to Nephrology Routine Comment: regular HD TTS Consulting Provider: Brittanie Ramirez 09/16/24 08:00 Referral Speech Therapy Urgent Comment: Referral Wound Care Urgent Comment: 09/18/24 19:31 Referral Nutritional Services Routine Comment: wound Attending Provider on DC: Jonathan Machuca DO Discharging Provider: Jonathan Machuca DO DS: Diagnosis Problem List Completed Was Problem List Reviewed/Reconciled?: Yes Hospital Course Hospital Course Hospital course: Luciana is a 84-year-old female PMHX of ESRD (on HD, T//, Dr. Arita), ischemic CVA, hypertension, and gout who was admitted to [facility] on September 15, 2024 for an evaluation of acute fracture of the greater trochanter of the right hip status post mechanical fall. Patient had come in with a blood pressure of 182 systolic, afebrile, saturating well on room air. Pertinent labs were creatinine 5.0, sodium 134, hemoglobin 15.4, glucose ~100 and unremarkable AST and ALT. Patient had head CT which was unremarkable for hemorrhage, subdural hematoma including no C-spine fracture. Orthopedic surgery was consulted, Dr Peralta who had recommended further imaging studies including MRI pelvis. Medicine was consulted and patient admitted to the floors. MRI of pelvis was ordered which had showed acute greater trochanteric fracture of the right hip pain and partial. Orthopedic surgery had seen patient and had recommended conservative management including weightbearing exercises for 4 to 6 weeks. Physical therapy also had seen the patient who had recommended patient to be discharged to SNF. Patient and patient's family was agreeable for patient to be discharged to SNF. Patient also had UTI that was managed with Levaquin 750 mg. On day before discharge, patient had elevation of liver enzymes, ALT 521, AST 264. Liver ultrasound was ordered which showed chronic cirrhosis and fatty liver. Ammonia level was also ordered as there was concern for delirium, however it was unremarkable. Patient also had continue dialysis schedule as her kidney doctor, Dr. Ramirez was consulted. Liver enzymes continue to downtrend and patient was then discharged with the following recommendations. Pt was kept one more night due to patient not having bowel movement. Pt had BM on day of discharge and was discharged with the following instructions. Discharge instructions: Follow-up with your PCP within 1 week Have a repeat CBC with your PCP to evaluate your liver enzyme levels as they were elevated in the hospital Take your medicines as prescribed Finish up your antibiotic course as prescribed, Levaquin Take your new medicine, Sevelamer as prescribed as this is for your kidney disease Return to ER if your symptoms worsen or return Follow-up with your kidney doctor within 1 week, Dr. Ramirez Problem list: #Acute fractures greater trochanter right hip s/p mechanical fall #E. coli UTI #Delirium #Elevated transaminases, improving #History of hypertension #History of end-stage renal disease #History of CVA #History of tremors #History of gout Discharge summary was reviewed with my attending Dr. Sven Saucedo, PGY-1 Time Spent with Patient Time attestation: Total time spent providing and/or coordinating discharge services: Time spent: Greater than 30 minutes Exam Vital Signs Temp Pulse Resp BP Pulse Ox O2 Del Method 97.9 F 78 18 130/59 L 97 Room Air 09/20/24 08:00 09/20/24 08:02 09/20/24 08:00 09/20/24 08:02 09/20/24 08:00 09/20/24 08:00 Narrative Exam General: AAOx3, NAD, frail elderly female, wearing glasses, HEENT: Moist mucous membranes, conjunctiva clear, EOMI, PERRLA, either bruise under right eyelid or port wine stain Cardiovascular: S1, S2, radial pulses +2 bilat, RRR Pulmonary: CTAB bilat no cough, no wheezing GI: No tenderness to light or deep palpitation, no guarding, rigidity, rebound tenderness or distension Extremities: Trace edema in lower extremities bilaterally, dorsalis pedis pulses +2 bilaterally Skin: Diffuse purpura throughout upper and lower extremities Neuro: AAOx3, no focal motor or sensory deficits in the UE or LE bilat Psych: Good judgement, thought and behavior. Cooperative Discharge Plan Plan Patient Disposition: Xfer Skilled Nsg Fac (SNF) Patient condition on transfer: Stable and Benefits outweigh risks Care Plan Goals: Discharge instructions: Follow-up with your PCP within 1 week Have a repeat CBC with your PCP to evaluate your liver enzyme levels as they were elevated in the hospital Take your medicines as prescribed Continue with PT at your SNF, and weight-bearing exercises Continue to follow up with your kidney doctor, Dr. Ramirez within one week Finish up your antibiotic course as prescribed, Levaquin Take your new medicine, Sevelamer as prescribed as this is for your kidney disease Return to ER if your symptoms worsen or return Follow-up with your kidney doctor within 1 week, Dr. Ramirez Prescriptions/Referrals Prescriptions/Med Rec: New sevelamer carbonate 800 mg tablet 800 mg PO TID 30 Days Qty: 90 0RF Rx Instructions: Take one tablet by mouth three times a day levofloxacin 250 mg tablet 250 mg PO QDAY 4 Days Qty: 4 0RF Rx Instructions: Take one tablet by mouth every day Continued primidone 50 MG tablet 250 mg PO QDAY Qty: 0 Rx Instructions: 100MG X1 IN AM, X2 IN THE PM amlodipine [Norvasc] 5 MG tablet 10 mg PO QDAY Qty: 0 allopurinol [Zyloprim] 100 MG tablet 100 mg PO QDAY Qty: 0 montelukast [Singulair] 10 MG tablet 10 mg PO QAM Qty: 0 fluticasone propionate 50 mcg/actuation [place],Suspension 2 spray NASAL BID Qty: 0 Rx Instructions: 2 SPRAYS AT NIGHT hydralazine 50 mg tablet 50 mg PO BID Rx Instructions: Only on the mornings when she does not go to dialysis. aspirin 81 mg Tablet,Delayed Release (Dr/Ec) 81 mg PO QDAY Praluent Pen 75 mg/mL pen injector 75 mg SUBCUT UD Patient Comments: INJECT 1 DOSE UNDER THE SKIN EVERY 2 WEEKS Rx Instructions: Every two weeks carvedilol 25 mg Tablet 25 mg PO BID Rx Instructions: must administer with a meal/food Referrals: Brooklyn Ramon MD [Primary Care Provider] - Patient/Caregiver Discharge Instructions Education Materials: Kidney Disease Calcium Phosphorus, After a Hip Fracture: Common Questions, CKD Dc Print Language: Malay Stand Alone Forms: Adri Award Info., Patient Portal Info Letter Discharge Order Discharge Orders: Discharge (Routine); Ordered 09/20/24 Ordered By: Cherelle Garcia Quality Discharge Quality Measures VTE prophylaxis (Heparin ) MD Attestestation MD Attestation I have discussed and was present for the essential components of the discharge history, physical examination, diagnosis, and discharge treatment plan with the resident. I agree with the patient's discharge care as documented by the resident and amended herein by me. Steven Machuca DO. The patient understood all discharge instructions, all questions were answered satisfactorily. The patient was instructed to return to the Emergency Department is symptoms worsened or persisted. Patient had a bowel movement, was stable, afebrile and tolerating p.o. intake at time of discharge to SNF where she will work with physical therapy per orthopedic surgery recommendations. Patient also discharged on a short course of Levaquin 750 mg daily for UTI. Daughter at bedside at time of discharge, all questions were answered satisfactorily. See resident note above for additional details on admission. Although this document has been carefully reviewed, there may still be some phonetic and other typographical errors. These errors are purely grammatical due to imperfections in the software program and should not be construed in any way to compromise the substance of the patient's medical care during this visit.
--- NOTE | 2024-09-20 14:16 | ESPR_ITS ---
RE: GAEL YOU : 1940 DATE OF SERVICE: 09/20/2024 HISTORY OF PRESENT ILLNESS: Briefly, she is an 84-year-old woman with hypertension, gout, arthritis, ESRD on dialysis since 11/2018, dialyzing every Monday, , and Monday at [facility], who presented to the emergency room on 09/15/2024 after she fell. She sustained an acute fracture of the greater trochanteric right hip, which does not need any surgery. She had dialysis yesterday and did well. She is getting discharged to home. PHYSICAL EXAMINATION: General: The patient was asleep, did not do a full exam. Vital Signs: Blood pressure of 135/63, heart rate of 78, O2 saturation of 94% on room air. LABORATORY DATA: Hemoglobin 11.4, WBC 7,800, plate count 194,000. Sodium 139, potassium 4, chloride 99, CO2 29.4, BUN 17, creatinine 3.5, and glucose 103. ASSESSMENT: 1. End-stage renal disease. 2. Elevated liver enzymes, unknown etiology, now improved. 3. Hypertension. 4. Multiple allergic reaction to several antibiotics. 5. Gout. 6. Acute fracture of the greater trochanteric right hip. No surgery needed. PLAN: The patient will dialyze at the [facility] tomorrow. Continue physical therapy. The patient is discharged as per hospitalist. DT: 13:11:56 TT: 14:15:00 Ref: [id number] - TID: [id number] [facility]
== END 2024-09-20 13:08 | disposition skilled nursing facility (03) | DRG 535 ==
LOC: SERX 22:10 → SERHOLD 22:30 → S3SX 23:15
PROVIDERS: Internal Medicine Nephrology; Registered Nurse General Practice; Student in an Organized Health Care Education/Training Program; Admitting Provider Student in an Organized Health Care Education/Training Program; Emergency Provider Emergency Medicine; PCP Internal Medicine; Visit Provider Student in an Organized Health Care Education/Training Program
DX: S72.111A Displaced fracture of greater trochanter of right femur, initial encounter for closed fracture (principal); N18.6 End stage renal disease; I12.0 Hypertensive chronic kidney disease with stage 5 chronic kidney disease or end stage renal disease; N39.0 Urinary tract infection, site not specified; F05 Delirium due to known physiological condition; Z99.2 Dependence on renal dialysis; Z86.73 Personal history of transient ischemic attack (TIA), and cerebral infarction without residual deficits; M10.9 Gout, unspecified; R29.6 Repeated falls; I44.0 Atrioventricular block, first degree; K74.60 Unspecified cirrhosis of liver; S00.83XA Contusion of other part of head, initial encounter; K59.00 Constipation, unspecified; Z79.899 Other long term (current) drug therapy; Z90.710 Acquired absence of both cervix and uterus; B96.20 Unspecified Escherichia coli [E. coli] as the cause of diseases classified elsewhere; Y92.000 Kitchen of unspecified non-institutional (private) residence as the place of occurrence of the external cause; Z79.82 Long term (current) use of aspirin; W01.198A Fall on same level from slipping, tripping and stumbling with subsequent striking against other object, initial encounter
CPT/HCPCS: 36415; 70450; 70486; 71045; 72125; 72192; 72195; 73502; 76705; 80048; 80053; 80061; 80074; 80076; 80307; 81001; 82140; 82550; 83615; 83735; 83880; 84100; 84443; 84484; 85025; 85610; 85730; 86706; 87040; 87077; 87081; 87086; 87186; 92526; 92610; 93005; 96372; 96374; 96375; 97162; 99285; J0360; J1171; J1644; J2270; J2405; J3010; J3490; P9047; A9270

== ENCOUNTER 2024-10-10 11:46 | Emergency (ER) | payer MEDICARE, BC, SELFPAY ==
[2024-10-10 11:49] VITALS: BP 148/86; PULSE 99; RESP 17; TEMP 37.7; O2SAT 95
--- NOTE | 2024-10-10 11:53 | PD.EDSOB ---
ED SOB =RME/HPI General Chief Complaint: Shortness of Breath/Dyspnea Stated Complaint: SOB Time Seen by Provider: 10/10/24 11:52 Arrival date/time: 10/10/24 11:46 RME / HPI RME / HPI Narrative: 84-year-old female patient with significant history of end-stage renal disease, on hemodialysis TTH S, hypertension, was brought in by EMS from dialysis center for worsening shortness of breath. According to the patient everything started about 4 PM this morning went to dialysis had a dialysis for 2 hours only. They have to stop the dialysis due to worsening shortness of breath. When the EMS arrived, patient was receiving. Patient was given albuterol breathing treatment with significant improvement. Patient also is complaining of productive cough. Denies any chest pain denies any fever denies any other complaints. Related Data Home Medications ?Medication ?Instructions ?Recorded ?Confirmed allopurinol 100 mg tablet 100 mg PO QDAY #0 tabs 09/13/13 09/15/24 (Zyloprim) amlodipine 5 mg tablet (Norvasc) 10 mg PO QDAY #0 tabs 09/13/13 09/15/24 fluticasone propionate 50 2 spray NASAL BID ##0 09/13/13 09/15/24 mcg/actuation nasal spray,suspension montelukast 10 mg tablet 10 mg PO QAM #0 tabs 09/13/13 09/15/24 (Singulair) primidone 50 mg tablet 250 mg PO QDAY #0 tabs 09/13/13 09/15/24 alirocumab 75 mg/mL subcutaneous 75 mg subcut UD 08/19/22 09/15/24 pen injector (Praluent Pen) aspirin 81 mg tablet,delayed 81 mg PO QDAY 08/19/22 09/15/24 release hydralazine 50 mg tablet 50 mg PO BID 09/12/22 09/15/24 carvedilol 25 mg tablet 25 mg PO BID 03/05/24 09/15/24 Previous Rx's ?Medication ?Instructions ?Recorded sevelamer carbonate 800 mg tablet 800 mg PO TID 1 month #90 tabs 09/19/24 albuterol sulfate 90 mcg/actuation 2 inh inhalation Q6H PRN shortness 10/10/24 aerosol inhaler of breath or wheezing #8.5 grams prednisone 50 mg tablet 50 mg PO QDAY #5 tabs 10/10/24 Allergies Allergy/AdvReac Type Severity Reaction Status Date / Time atorvastatin (From Lipitor) Allergy Severe Swelling Verified 09/15/24 18:07 of Lip/Tongue/Throat cefuroxime Allergy Severe RASH/ Verified 09/15/24 18:07 DIARRHEA cephalexin Allergy Severe RASH/NAUSEA Verified 09/15/24 18:07 /VOMITING Cephalosporins Allergy Severe Rash Verified 09/15/24 18:07 ciprofloxacin Allergy Severe Rash Verified 09/15/24 18:07 erythromycin base Allergy Severe Rash Verified 09/15/24 18:07 nitrofurantoin Allergy Severe Rash Verified 09/15/24 18:07 Penicillins Allergy Severe Rash Verified 09/15/24 18:07 Sulfa (Sulfonamide Allergy Severe Rash Verified 09/15/24 18:07 Antibiotics) NITRATE Allergy Severe Rash Uncoded 09/15/24 18:07 Review of Systems Review of Systems Narrative Review of Systems: Review of system reviewed and within normal limits except mentioned in HPI ED Exam Narrative Physical exam: VITAL SIGNS: Reviewed. GENERAL APPEARANCE: Alert and interactive, follows commands, no acute distress, HEAD AND FACE: Non-traumatic. ENT: PERRL, pink conjunctivitis, eyelid no trauma, Mucous membrane moist. NECK: Supple, nontender, no nuchal rigidity. CHEST: No tenderness, no crepitus, no paradoxical movement, no retractions. LUNGS: Clear, well ventilated, symmetric, no rales, + occasional wheezing wheezing, no ronchi, no stridor, good breath sounds bilaterally. HEART: Regular rate, regular rhythm, no murmur, no gallops. ABDOMEN: Soft, positive bowel sounds, nondistended, no guarding, nontender, no rebound, no masses, RECTAL: Deferred. GENITAL: Deferred. NEUROLOGICAL: Gross motor function intact sensory function intact, Appropriate for age. MUSCULOSKELETAL: low back nontender, full range of motion. EXTREMITIES: Right arm AV fistula with dressing, no bleeding nontender, full range of motion. SKIN: Color pink, dry, no rash, no lacerations, no abrasions, no contusions. LYMPHATICS: Deferred. Course Quality Measures none Orders Category Date Time Status EKG (ED ONLY) *Do not use* NOW Care 10/10/24 11:55 Completed EKG (ED Only) Stat Exams 10/10/24 11:55 Draft XR chest 1V Stat Exams 10/10/24 11:55 Completed B-Type Natriuretic Peptide Stat Lab 10/10/24 12:17 Completed CBC Stat Lab 10/10/24 12:17 Completed Comprehensive Metabolic Panel Stat Lab 10/10/24 12:17 Completed Partial Thromboplastin Time Stat Lab 10/10/24 12:17 Completed Prothrombin Time with INR Stat Lab 10/10/24 12:17 Completed Troponin I Stat Lab 10/10/24 12:17 Completed Albuterol/Ipratr Rt Diana [Duoneb Rt Diana] Med 10/10/24 11:55 Discontinued 3 ml INH X1 ONE Dexamethasone Inj [Decadron Inj] Med 10/10/24 11:55 Discontinued 10 mg PO X1 ONE Ibuprofen Tab [Motrin Tab] Med 10/10/24 15:38 Discontinued 800 mg PO X1 ONE Vital Signs Vital signs: Vital Signs Temperature 99.9 F 10/10/24 11:49 Pulse Rate 99 10/10/24 11:49 Respiratory Rate 17 10/10/24 11:49 Blood Pressure 148/86 H 10/10/24 11:49 Pulse Oximetry (%) 95 10/10/24 11:49 Shortness of Breath / Dyspnea MDM Narrative MDM Narrative:: 84-year-old female patient with significant history of end-stage renal disease, on hemodialysis TTH S, hypertension, was brought in by EMS from dialysis center for worsening shortness of breath. According to the patient everything started about 4 PM this morning went to dialysis had a dialysis for 2 hours only. They have to stop the dialysis due to worsening shortness of breath. When the EMS arrived, patient was receiving. Patient was given albuterol breathing treatment with significant improvement. Patient also is complaining of productive cough. Denies any chest pain denies any fever denies any other complaints. Laboratory workup showed slight leukocytosis of 13.5 creatinine was noted to be 2.2 BUN is normal BNP 589. I personally reviewed and interpreted the x-ray of this patient. There is no acute abnormalities found, no infiltrates no pneumothorax no hemothorax normal chest x-ray. Review of other structures was without significant abnormal findings also. I additionally reviewed the radiologist report and agree with the interpretation. EKG as interpreted by me showed sinus rhythm, ventricular rate of 72 bpm, no ST segment elevation or depression noted, Patient was given DuoNeb breathing treatment and Decadron with complete resolution of symptoms was satting 95% on room air prior to discharge Patient data External records reviewed:: None Clinical information provided by:: patient and EMS Social determinants that could affect healthcare access:: none Patient has the following chronic illnesses:: COPD, ESRD How is presenting disease/condition affected by chronic disease/condition?: exacerbated by Evaluation data The following diagnostics were reviewed and interpreted by me:: lab results, radiology exam(s) and EKG tracing(s) Lab and/or radiology exams considered but not ordered:: None Interpretation Summary: See results MDM Medications / Prescriptions Medications or Prescriptions considered but not ordered:: None Medication administrations:: Medication Administration History Discontinued Medications Albuterol/Ipratropium (Albuterol/Ipratropium (Duoneb) Rt Diana 3 Ml Nebu) 3 ml INH X1 ONE Stop: 10/10/24 11:56 Last Admin: 10/10/24 12:32 Dose: 3 ml Documented By: SARAH Dexamethasone Sodium Phosphate (Dexamethasone Sod Phos Inj 10 Mg/Ml Vial) 10 mg PO X1 ONE Stop: 10/10/24 11:56 Last Admin: 10/10/24 12:19 Dose: 10 mg Documented By: SARAH(2) Ibuprofen (Ibuprofen Tab 400 Mg Tablet) 800 mg PO X1 ONE Stop: 10/10/24 15:39 Decadron, DuoNeb Motrin Consultations Consultation(s) initiated? (list below): No Diagnosis Shortness of Breath Differential Diagnosis: acute exacerbation of chronic obstructive airways disease, congestive heart failure and asthma with exacerbation Most likely diagnosis given after review of the tests above:: Wheezing, acute exacerbation of COPD Admission Indicated Admission indicated?: not indicated Admission Request Was there a request for admission?: No Disposition Plan Disposition Plan: Discharge Discharge Attestation Discharge Attestation: The patient was given an opportunity to ask questions and understood the discharge instructions. Discharge instructions specifically effects, indications for sooner follow up or return to the emergency department, and the expected course of current diagnosis. Patient condition: Stable Discharge Plan Plan Patient Disposition: HOME (Self Care) Discharge Disposition comment: Stable Prescriptions/Referrals Prescriptions/Med Rec: New prednisone 50 mg tablet 50 mg PO QDAY Qty: 5 0RF albuterol sulfate 90 mcg/actuation HFA aerosol inhaler 2 inh inhalation Q6H PRN (Reason: shortness of breath or wheezing) Qty: 8.5 0RF No Action primidone 50 MG tablet 250 mg PO QDAY Qty: 0 Rx Instructions: 100MG X1 IN AM, X2 IN THE PM amlodipine [Norvasc] 5 MG tablet 10 mg PO QDAY Qty: 0 allopurinol [Zyloprim] 100 MG tablet 100 mg PO QDAY Qty: 0 montelukast [Singulair] 10 MG tablet 10 mg PO QAM Qty: 0 fluticasone propionate 50 mcg/actuation [place],Suspension 2 spray NASAL BID Qty: 0 Rx Instructions: 2 SPRAYS AT NIGHT hydralazine 50 mg tablet 50 mg PO BID Rx Instructions: Only on the mornings when she does not go to dialysis. aspirin 81 mg Tablet,Delayed Release (Dr/Ec) 81 mg PO QDAY Praluent Pen 75 mg/mL pen injector 75 mg SUBCUT UD Patient Comments: INJECT 1 DOSE UNDER THE SKIN EVERY 2 WEEKS Rx Instructions: Every two weeks carvedilol 25 mg Tablet 25 mg PO BID Rx Instructions: must administer with a meal/food sevelamer carbonate 800 mg tablet 800 mg PO TID 30 Days Qty: 90 0RF Rx Instructions: Take one tablet by mouth three times a day Referrals: Brooklyn Ramon MD [Primary Care Provider] - In 1 week Problem List Clinical Impression: Acute exacerbation of chronic obstructive airways disease Patient/Caregiver Discharge Instructions Discharge Activity: activity as tolerated Education Materials: COPD: Using Inhalers Additional Instructions: Thank you for the opportunity for serving you today. You are stable for discharged . You are advised to: Follow-up with your PCP in 1 to 2 days Return to ED for worsening of symptoms Print Language: Polish Stand Alone Forms: Adri Award Info., Patient Portal Info Letter
[2024-10-10 11:55] VITALS: PULSE 81; RESP 24; O2SAT 88; BMI 24.2
--- NOTE | 2024-10-10 11:55 | XR_ITS ---
Examination: AP chest single view Technique one AP portable upright chest single view INDICATIONS: Shortness of breath today FINDINGS: Minor prominence left ventricle No lobar pneumonia or pulmonary edema Mild elevation right hemidiaphragm IMPRESSION: No lobar pneumonia or pulmonary edema
--- NOTE | 2024-10-10 11:55 | EKG_ITS ---
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
--- NOTE | 2024-10-10 12:15 | PC.NURSE ---
Patient presents to ED via ambulance with c/o sob since 4 am today. Patient was at HD and had 1.4l out and then transferred to ED for SOB. Patient denies fever. Patient is alert and oriented, ambulates with walker, hx of right hip fx in 09/22 and at [facility] for therapy. Patient updated with plan of care, call light placed within reach.
[2024-10-10] MEDS: DEXAMETHASONE SOD PHOS INJ 10 MG/ML VIAL PO (12:19)
[2024-10-10] MEDS: ALBUTEROL/IPRATROPIUM (Duoneb) RT SOL 3 ML NEBU INH (12:32)
[2024-10-10 12:35] VITALS: PULSE 74; RESP 18; O2SAT 100
[2024-10-10 12:35] LABS: Basophils # (Auto) 0.1 Thou/mm3 (0.0-0.2); Basophils % (Auto) 0 % (0-2.5); Eosinophils # (Auto) 0.2 Thou/mm3 (0.0-0.5); Eosinophils % (Auto) 2 % (0-10); Hematocrit 33.7 % (36.0-46.0); Hemoglobin 11.4 g/dL (12.0-16.0); Immature Granulocytes % (Auto) 1 % (0-0); Immature Granulocytes Auto 0.11 Thou/mm3 (0.00-0.00); Lymphocytes # (Auto) 0.7 Thou/mm3 (1.0-4.8); Lymphocytes % (Auto) 5 % (10-50); Mean Corpuscular HGB Conc 33.8 g/dl (31.0-37.0); Mean Corpuscular Hemoglobin 35.2 pg (25.0-35.0); Mean Corpuscular Volume 104 fL (80-100); Monocytes % (Auto) 8 % (0-12); Neutrophils # (Auto) 11.4 Thou/mm3 (1.8-7.7); Neutrophils % (Auto) 84 % (37-80); Nucleated Red Blood Cell % 0 /100 WBC (0); Platelet Count 171 Thou/mm3 (140-440); RDW Standard Deviation 60.7 fL (36.4-46.3); Red Blood Count 3.24 Miln/mm3 (4.00-5.20); White Blood Count 13.5 Thou/mm3 (3.6-11.0)
[2024-10-10 12:54] LABS: Partial Thromboplastin Time 30.6 Seconds (22.0-36.0); Prothrombin Time 11.1 Seconds (9.0-12.2)
[2024-10-10 13:17] LABS: Alanine Aminotransferase 7 U/L (10-49); Albumin, Serum 3.7 gm/dL (3.4-4.8); Albumin/Globulin Ratio 1.5 (1.2-2.2); Alkaline Phosphatase 130 U/L (46-116); Anion Gap 10 (7-16); BUN/Creatinine Ratio 10 Ratio (12-20); Bilirubin,Total 0.7 mg/dL (0.3-1.2); Blood Urea Nitrogen 21 mg/dL (9-23); Calcium 9.1 mg/dL (8.3-10.6); Calcium (Corrected) 9.3 mg/dL (8.5-10.1); Carbon Dioxide 29.7 mMol/L (20.0-31.0); Chloride 101 mMol/L (98-107); Creatinine (Component) 2.2 mg/dL (0.6-1.3); Estimated Creatinine Clearance 14.1 mL/min (>60); Globulin 2.4 gm/dL (2.3-3.5); Glucose 85 mg/dL (74-106); Osmolality,Calculated 283 (275-295); Potassium 4.4 mMol/L (3.4-5.1); Sodium 141 mMol/L (136-145); Total Protein 6.1 gm/dL (5.7-8.2); Troponin I < 0.020 ng/mL (0.0-0.045); eGFR 21 See Note
[2024-10-10 13:19] LABS: B-Type Natriuretic Peptide 586 pg/mL (0-100)
[2024-10-10 13:30] VITALS: BP 175/88; PULSE 78; RESP 19; TEMP 37.6; O2SAT 95
[2024-10-10 16:30] VITALS: BP 156/81; PULSE 80; RESP 16; TEMP 36.8; O2SAT 96
--- NOTE | 2024-10-10 16:47 | PC.NURSE ---
Rn gave report to Erinn at [facility] [phone], informed patient will be discharging back to facility and daughter in law will transport. Informed of new meds prescibed to patient.
== END 2024-10-10 17:04 | disposition home or self-care (01) ==
PROVIDERS: Nurse Practitioner Family; Emergency Provider Emergency Medicine; PCP Internal Medicine
DX: J44.1 Chronic obstructive pulmonary disease with (acute) exacerbation (principal); I12.0 Hypertensive chronic kidney disease with stage 5 chronic kidney disease or end stage renal disease; N18.6 End stage renal disease; Z99.2 Dependence on renal dialysis; I44.0 Atrioventricular block, first degree
CPT/HCPCS: 36415; 71045; 80053; 83880; 84484; 85025; 85610; 85730; 93005; 94640; 99283; A9270; J1100

== ENCOUNTER 2024-10-18 16:47 | Emergency (ER) | payer MEDICARE, BC, SELFPAY ==
--- NOTE | 2024-10-18 16:54 | EKG_ITS ---
[facility] Test Date: 2024-10-18 Pat Name: GAEL YOU Department: Room: - Gender: Female Training Assistant: : 1940 Requested By: Aleta Garcia Order Number: [id number] Reading MD: Aleta Garcia Measurements Intervals [place] Rate: 71 P: 49 PA: 253 QRS: -3 QRSD: 79 T: 38 QT: 376 QTc: 410 Interpretive Statements SINUS RHYTHM WITH FIRST DEGREE AV BLOCK VOLTAGE CRITERIA FOR LVH [MEETS CRITERIA IN ONE OF: R(aVL), S(V1), R(V5), R(V5/V6)+S(V1)] Compared to ECG 10/10/2024 12:10:20 No significant changes /store/S0/[id number].pdf
--- NOTE | 2024-10-18 16:54 | XR_ITS ---
Examination: CT abdomen and pelvis without contrast. Coronal 3-D reconstructions. Sagittal 2-D reconstructions. Date and time of exam:October 18, 2024 1813 hours INDICATION: Left-sided abdominal pain and pelvic pain today left flank pain CTDI: vol (mGy): 8.74 DLP: (mGycm): 384 Technique: Axial images of the abdomen have been obtained, 3 mm slice thickness Intravenous contrast material has not been administered. Low dose protocols were performed. One or more of the following dose reduction techniques were used; automated exposure control, adjustment of the mA and/or KV according to patient size, use of iterative reconstruction technique. Findings: Atelectasis versus mild pneumonia right base Small right minimal left pleural fluid No focal liver or splenic lesions Absent gallbladder No pancreatic mass Atrophic severely scarred left kidney with 28 mm left renal cyst Significant scarring right kidney Bilateral perinephric stranding No ureteral calculi or significant hydronephrosis Abundant stool in the right colon No pericecal inflammatory change No diverticulitis Contracted urinary bladder no bladder mass or bladder calculi Absent uterus Severe osteopenia with fusion L4-L5 Ununited old fracture of the greater trochanter right hip IMPRESSION: Atrophic severity scarred left kidney Significant scarring right kidney. Bilateral perinephric stranding, consider pyelonephritis No ureteral calculi or hydronephrosis No bladder mass or bladder calculi Atelectasis versus mild pneumonia right base
[2024-10-18 16:55] VITALS: PULSE 75; RESP 16; O2SAT 96; BMI 26.2
--- NOTE | 2024-10-18 16:57 | PD.EDABDPN ---
ED Abdominal Pain RME/HPI General Chief Complaint: Abdominal Pain Stated complaint: ABDOMINAL PAIN Time seen by provider: 10/18/24 16:50 Arrival date/time: 10/18/24 16:47 RME / HPI RME / HPI narrative: 84-year-old female patient with significant history of end-stage renal disease, hypertension, came in for evaluation regarding left flank pain. Onset of symptoms since earlier today as sudden onset of left flank pain radiating to the left lower abdomen severity moderate. Patient denies any vomiting denies any fever diarrhea. Patient been constipated for several days. Denies any other complaints. Last hemodialysis yesterday. Related Data Home Medications ?Medication ?Instructions ?Recorded ?Confirmed allopurinol 100 mg tablet 100 mg PO QDAY #0 tabs 09/13/13 09/15/24 (Zyloprim) amlodipine 5 mg tablet (Norvasc) 10 mg PO QDAY #0 tabs 09/13/13 09/15/24 fluticasone propionate 50 2 spray NASAL BID ##0 09/13/13 09/15/24 mcg/actuation nasal spray,suspension montelukast 10 mg tablet 10 mg PO QAM #0 tabs 09/13/13 09/15/24 (Singulair) primidone 50 mg tablet 250 mg PO QDAY #0 tabs 09/13/13 09/15/24 alirocumab 75 mg/mL subcutaneous 75 mg subcut UD 08/19/22 09/15/24 pen injector (Praluent Pen) aspirin 81 mg tablet,delayed 81 mg PO QDAY 08/19/22 09/15/24 release hydralazine 50 mg tablet 50 mg PO BID 09/12/22 09/15/24 carvedilol 25 mg tablet 25 mg PO BID 03/05/24 09/15/24 Previous Rx's ?Medication ?Instructions ?Recorded sevelamer carbonate 800 mg tablet 800 mg PO TID 1 month #90 tabs 09/19/24 albuterol sulfate 90 mcg/actuation 2 inh inhalation Q6H PRN shortness 10/10/24 aerosol inhaler of breath or wheezing #8.5 grams prednisone 50 mg tablet 50 mg PO QDAY #5 tabs 10/10/24 acetaminophen 300 mg-codeine 30 mg 1 tab PO TID PRN pain #20 tabs 10/18/24 tablet Allergies Allergy/AdvReac Type Severity Reaction Status Date / Time atorvastatin (From Lipitor) Allergy Severe Swelling Verified 09/15/24 18:07 of Lip/Tongue/Throat cefuroxime Allergy Severe RASH/ Verified 09/15/24 18:07 DIARRHEA cephalexin Allergy Severe RASH/NAUSEA Verified 09/15/24 18:07 /VOMITING Cephalosporins Allergy Severe Rash Verified 09/15/24 18:07 ciprofloxacin Allergy Severe Rash Verified 09/15/24 18:07 erythromycin base Allergy Severe Rash Verified 09/15/24 18:07 nitrofurantoin Allergy Severe Rash Verified 09/15/24 18:07 Penicillins Allergy Severe Rash Verified 09/15/24 18:07 Sulfa (Sulfonamide Allergy Severe Rash Verified 09/15/24 18:07 Antibiotics) NITRATE Allergy Severe Rash Uncoded 09/15/24 18:07 Review of Systems Review of Systems Narrative Review of Systems: Review of system reviewed and within normal limits except mentioned in HPI ED Exam Narrative Physical exam: VITAL SIGNS: Reviewed. GENERAL APPEARANCE: Alert and interactive, follows commands, no acute distress, HEAD AND FACE: Non-traumatic. ENT: PERRL, pink conjunctivitis, eyelid no trauma, Mucous membrane moist. NECK: Supple, nontender, no nuchal rigidity. CHEST: No tenderness, no crepitus, no paradoxical movement, no retractions. LUNGS: Clear, well ventilated, symmetric, no rales, no wheezing, no ronchi, no stridor, good breath sounds bilaterally. HEART: Regular rate, regular rhythm, no murmur, no gallops. ABDOMEN: Soft, positive bowel sounds, nondistended, no guarding, left lower quadrant tenderness, no rebound, no masses, left flank tenderness RECTAL: Deferred. GENITAL: Deferred. NEUROLOGICAL: Gross motor function intact sensory function intact, Appropriate for age. MUSCULOSKELETAL: low back nontender, full range of motion. EXTREMITIES: Nontender, full range of motion. SKIN: Color pink, dry, no rash, no lacerations, no abrasions, no contusions. LYMPHATICS: Deferred. Course Quality Measures none Orders Category Date Time Status EKG (ED ONLY) *Do not use* NOW Care 10/18/24 16:[address] abdomen pelvis wo con Stat Exams 10/18/24 16:54 Completed EKG (ED Only) Stat Exams 10/18/24 16:54 Draft CBC Stat Lab 10/18/24 18:43 Completed Comprehensive Metabolic Panel Stat Lab 10/18/24 18:43 Completed Lactate (Lactic Acid) Stat Lab 10/18/24 18:43 Completed Lipase Stat Lab 10/18/24 18:43 Completed Prothrombin Time with INR Stat Lab 10/18/24 18:43 Completed UA, C/S IF [Urinalysis, C/S if Indicated] Stat Lab 10/18/24 22:16 Completed HYDROcodone*/APAP 5/325 [Olga 5/325] Med 10/18/24 20:35 Discontinued 1 tab PO X1 ONE Magnesium Citrate Liqd [Citrate of Magnesia Liqd] Med 10/18/24 16:54 Discontinued 300 ml PO X1 ONE Morphine Inj Med 10/18/24 23:20 Discontinued 4 mg IM X1 ONE Vital Signs Vital signs: Vital Signs Temperature 98.6 F 10/18/24 17:08 Pulse Rate 69 10/18/24 17:08 Respiratory Rate 17 10/18/24 17:08 Blood Pressure 176/71 H 10/18/24 17:08 Pulse Oximetry (%) 96 10/18/24 17:08 Oxygen Delivery Method Room Air 10/18/24 17:08 Abdominal Pain MDM MDM Narrative MDM Narrative:: 84-year-old female patient with significant history of end-stage renal disease, hypertension, came in for evaluation regarding left flank pain. Onset of symptoms since earlier today as sudden onset of left flank pain radiating to the left lower abdomen severity moderate. Patient denies any vomiting denies any fever diarrhea. Patient been constipated for several days. Denies any other complaints. Last hemodialysis yesterday. Patient's workup CBC showed slight leukocytosis of 11.9 creatinine of 3.5 BUN of 32 patient is ESRD on hemodialysis potassium is normal urinalysis no UTI CT scan of the abdomen pelvis showed Atrophic severity scarred left kidney Significant scarring right kidney. Bilateral perinephric stranding, consider pyelonephritis No ureteral calculi or hydronephrosis No bladder mass or bladder calculi Atelectasis versus mild pneumonia right base EKG showed normal sinus rhythm, ventricular rate of 71 bpm, no ST segment elevation depression noted. Results discussed with the patient. Patient was given morphine IM with significant improvement of pain. Patient data External records reviewed:: None Clinical information provided by:: patient Social determinants that could affect healthcare access:: none Patient has the following chronic illnesses:: ESRD on hemodialysis How is presenting disease/condition affected by chronic disease/condition?: exacerbated by Evaluation data The following diagnostics were reviewed and interpreted by me:: lab results, radiology exam(s) and EKG tracing(s) Lab and/or radiology exams considered but not ordered:: None Interpretation Summary: See results MDM Medications / Prescriptions Medications or Prescriptions considered but not ordered:: None Medication administrations:: Medication Administration History Discontinued Medications Hydrocodone Bitart/Acetaminophen (Hydrocodone/Apap 5/325 Tablet) 1 tab PO X1 ONE Stop: 10/18/24 20:36 Last Admin: 10/18/24 21:39 Dose: 1 tab Documented By: Magnesium Citrate (Magnesium Citrate 300 Ml Btl) 300 ml PO X1 ONE Stop: 10/18/24 16:55 Last Admin: 10/18/24 17:28 Dose: 300 ml Documented By: DB Morphine Sulfate (Morphine Sulf Inj 10 Mg/Ml Vial) 4 mg IM X1 ONE Stop: 10/18/24 23:21 Last Admin: 10/18/24 23:42 Dose: 4 mg Documented By: Morphine magnesium citrate and Olga Consultations Consultation(s) initiated? (list below): No Diagnosis Differential diagnosis abdominal pain: abdominal pain and calculus of kidney Most likely diagnosis given after review of the tests above:: Flank pain, ESRD Admission Indicated Admission indicated?: not indicated Explain why admission is indicated or not indicated:: Stable Admission Request Was there a request for admission?: No Disposition Plan Disposition Plan: Discharge Discharge Attestation Discharge Attestation: The patient and all family members were given an opportunity to ask questions and understood the discharge instructions. Discharge instructions specifically effects, indications for sooner follow up or return to the emergency department, and the expected course of current diagnosis. Patient condition: Stable Discharge Plan Plan Patient Disposition: HOME (Self Care) Discharge Disposition comment: Stable Prescriptions/Referrals Prescriptions/Med Rec: New acetaminophen-codeine 300-30 mg tablet 1 tab PO TID PRN (Reason: pain) Qty: 20 0RF No Action primidone 50 MG tablet 250 mg PO QDAY Qty: 0 Rx Instructions: 100MG X1 IN AM, X2 IN THE PM amlodipine [Norvasc] 5 MG tablet 10 mg PO QDAY Qty: 0 allopurinol [Zyloprim] 100 MG tablet 100 mg PO QDAY Qty: 0 montelukast [Singulair] 10 MG tablet 10 mg PO QAM Qty: 0 fluticasone propionate 50 mcg/actuation [place],Suspension 2 spray NASAL BID Qty: 0 Rx Instructions: 2 SPRAYS AT NIGHT hydralazine 50 mg tablet 50 mg PO BID Rx Instructions: Only on the mornings when she does not go to dialysis. aspirin 81 mg Tablet,Delayed Release (Dr/Ec) 81 mg PO QDAY Praluent Pen 75 mg/mL pen injector 75 mg SUBCUT UD Patient Comments: INJECT 1 DOSE UNDER THE SKIN EVERY 2 WEEKS Rx Instructions: Every two weeks carvedilol 25 mg Tablet 25 mg PO BID Rx Instructions: must administer with a meal/food sevelamer carbonate 800 mg tablet 800 mg PO TID 30 Days Qty: 90 0RF Rx Instructions: Take one tablet by mouth three times a day prednisone 50 mg tablet 50 mg PO QDAY Qty: 5 0RF albuterol sulfate 90 mcg/actuation HFA aerosol inhaler 2 inh inhalation Q6H PRN (Reason: shortness of breath or wheezing) Qty: 8.5 0RF Referrals: No Primary/Family,Physician [Primary Care Provider] - In 1 week Problem List Clinical Impression: Flank pain Patient/Caregiver Discharge Instructions Discharge Activity: activity as tolerated Education Materials: Medicine for Pain Additional Instructions: Thank you for the opportunity for serving you today. You are stable for discharged . You are advised to: Follow-up with your PCP in 1 to 2 days Return to ED for worsening of symptoms Increase oral fluids Take medication as prescribed Print Language: Bolivian Stand Alone Forms: Adri Award Info., Patient Portal Info Letter RAVIN/JAYLON Supervising Physician RAVIN/JAYLON Supervising Physician: MD Park
[2024-10-18 17:08] VITALS: BP 176/71; PULSE 69; RESP 17; TEMP 37; O2SAT 96
[2024-10-18] MEDS: MAGNESIUM CITRATE 300 ML BTL PO (17:28)
[2024-10-18 19:04] LABS: Basophils % (Auto) 0 % (0-2.5); Eosinophils # (Auto) 0.3 Thou/mm3 (0.0-0.5); Eosinophils % (Auto) 2 % (0-10); Hematocrit 33.3 % (36.0-46.0); Hemoglobin 11.3 g/dL (12.0-16.0); Immature Granulocytes % (Auto) 2 % (0-0); Immature Granulocytes Auto 0.29 Thou/mm3 (0.00-0.00); Lymphocytes % (Auto) 8 % (10-50); Mean Corpuscular HGB Conc 33.9 g/dl (31.0-37.0); Mean Corpuscular Hemoglobin 35.8 pg (25.0-35.0); Mean Corpuscular Volume 105 fL (80-100); Monocytes # (Auto) 1.2 Thou/mm3 (0.0-0.8); Monocytes % (Auto) 10 % (0-12); Neutrophils # (Auto) 9.1 Thou/mm3 (1.8-7.7); Neutrophils % (Auto) 77 % (37-80); Nucleated Red Blood Cell % 0 /100 WBC (0); Platelet Count 185 Thou/mm3 (140-440); RDW Standard Deviation 60.9 fL (36.4-46.3); Red Blood Count 3.16 Miln/mm3 (4.00-5.20); White Blood Count 11.9 Thou/mm3 (3.6-11.0)
[2024-10-18 19:18] LABS: Prothrombin Time 10.8 Seconds (9.0-12.2)
[2024-10-18 19:21] LABS: Alanine Aminotransferase 20 U/L (10-49); Albumin, Serum 3.7 gm/dL (3.4-4.8); Albumin/Globulin Ratio 1.8 (1.2-2.2); Alkaline Phosphatase 111 U/L (46-116); Anion Gap 10 (7-16); Aspartate Amino Transferase 15 U/L (0-34); BUN/Creatinine Ratio 9 Ratio (12-20); Bilirubin,Total 0.3 mg/dL (0.3-1.2); Blood Urea Nitrogen 32 mg/dL (9-23); Calcium 9.1 mg/dL (8.3-10.6); Calcium (Corrected) 9.3 mg/dL (8.5-10.1); Carbon Dioxide 26.8 mMol/L (20.0-31.0); Chloride 103 mMol/L (98-107); Creatinine (Component) 3.5 mg/dL (0.6-1.3); Estimated Creatinine Clearance 9.2 mL/min (>60); Globulin 2.1 gm/dL (2.3-3.5); Glucose 97 mg/dL (74-106); Lipase 27 U/L (12-53); Osmolality,Calculated 286 (275-295); Potassium 4.2 mMol/L (3.4-5.1); Sodium 140 mMol/L (136-145); Total Protein 5.8 gm/dL (5.7-8.2); eGFR 12 See Note
[2024-10-18] MEDS: HYDROcodone/APAP 5/325 TABLET 1 TAB PO (21:39)
[2024-10-18 22:25] LABS: Collection Type, Urine Clean Catch
[2024-10-18 22:33] LABS: Bilirubin,Urine Negative (Negative); Blood,Urine Negative (Negative); Clarity,Urine Clear (Clear/Hazy); Color,Urine Lt-Yellow (Lt Yel-Yel); Culture Indicated,Urine Not Indicated; Glucose, Urine Negative (Negative); Ketones,Urine Negative (Negative); Leukocyte Esterase,Urine Negative (Negative); Nitrite,Urine Negative (Negative); PH,Urine 8.5 (5.0-7.0); Protein,Urine 2+ (Neg - Trace); RBC,Urine 1 /hpf (0-3); Specific Gravity,Urine 1.017 (1.001-1.035); Squamous Epithelial Cell,Urine 5 /hpf (0-5); Urobilinogen,Urine Negative mg/dL (0.0-1.0); WBC,Urine 2 /hpf (0-5)
[2024-10-18] MEDS: MORPHINE SULF INJ 10 MG/ML VIAL 4 MG IM (23:42)
== END 2024-10-18 23:30 | disposition home or self-care (01) ==
PROVIDERS: Nurse Practitioner Family; Emergency Provider Emergency Medicine
DX: I12.0 Hypertensive chronic kidney disease with stage 5 chronic kidney disease or end stage renal disease (principal); N18.6 End stage renal disease; I44.0 Atrioventricular block, first degree; D72.829 Elevated white blood cell count, unspecified; Z99.2 Dependence on renal dialysis
CPT/HCPCS: 36415; 74176; 80053; 81001; 83605; 83690; 85025; 85610; 93005; 96372; 99284; J2270; A9270

== ENCOUNTER 2024-10-21 23:13 | Emergency (ER) | payer MEDICARE, BC, SELFPAY ==
[2024-10-21 23:15] VITALS: BMI 26.2
[2024-10-21 23:50] VITALS: BP 157/70; PULSE 81; RESP 19; TEMP 36.9; O2SAT 95
--- NOTE | 2024-10-22 00:03 | PD.EDRECHK ---
ED Recheck Abnl Lab Rx-RME/HPI General Chief Complaint: General Adult/Misc Complain Stated Complaint: DIALYSIS SITE GETTING BIGGER, NEED IT CHECKED Time Seen by Provider: 10/22/24 00:14 Arrival date/time: 10/21/24 23:13 RME / HPI RME / HPI narrative: This section includes all my notes and documentations, including HPI, PE, and ED course. Zac Nick MD HPI: 84yo female with a history of ESRD (on HD, T//, Dr. Ramirez), ischemic CVA, HTN, and gout presents to the ED with increasing ballooning at the site of her dialysis shunt in her right arm. Started about 6 hours ago. No fever, chills. No other complaints. ROS: All negative except as documented in HPI. Physical Exam: General: Alert and oriented. No acute distress when remaining still. Eyes: Conjunctivae and lids clear. ENT: No nasal congestion. Neck: Supple. Heart: RRR. Lungs: No respiratory distress. Good air movement. No significant rhonchi, wheezing, rales. Skin: Warm and dry. Golf-ball sized lump in the right antecubital fossa, in the inferior portion of the dialysis graft. Neuro: Alert and oriented X 3. I reviewed all diagnostic test results. 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 - Questionable small thrombus within. Blood tests remarkable for ESR 89, Creatinine 5.9, Magnesium 3.4, BNP 315, Procalcitonin 1.46, CRP 33.2. At this point, diagnoses include vascular graft aneurysm. I discussed the case with patient's project controls specialist, Dr. Ramirez. About the presentation and exam and diagnostics and treatments here. And possible need of further care in the hospital. Recommended transfer to another facility with vascular surgery. I discussed the case with Dr. Perez, vascular surgeon at [facility]. About the presentation and exam and diagnostics and treatments here. And need of further care in the hospital there. Will accept the patient. Zac Nick MD Related Data Home Medications ?Medication ?Instructions ?Recorded ?Confirmed allopurinol 100 mg tablet 100 mg PO QDAY #0 tabs 09/13/13 09/15/24 (Zyloprim) amlodipine 5 mg tablet (Norvasc) 10 mg PO QDAY #0 tabs 09/13/13 09/15/24 fluticasone propionate 50 2 spray NASAL BID ##0 09/13/13 09/15/24 mcg/actuation nasal spray,suspension montelukast 10 mg tablet 10 mg PO QAM #0 tabs 09/13/13 09/15/24 (Singulair) primidone 50 mg tablet 250 mg PO QDAY #0 tabs 09/13/13 09/15/24 alirocumab 75 mg/mL subcutaneous 75 mg subcut UD 08/19/22 09/15/24 pen injector (Praluent Pen) aspirin 81 mg tablet,delayed 81 mg PO QDAY 08/19/22 09/15/24 release hydralazine 50 mg tablet 50 mg PO BID 09/12/22 09/15/24 carvedilol 25 mg tablet 25 mg PO BID 03/05/24 09/15/24 Previous Rx's ?Medication ?Instructions ?Recorded albuterol sulfate 90 mcg/actuation 2 inh inhalation Q6H PRN shortness 10/10/24 aerosol inhaler of breath or wheezing #8.5 grams prednisone 50 mg tablet 50 mg PO QDAY #5 tabs 10/10/24 acetaminophen 300 mg-codeine 30 mg 1 tab PO TID PRN pain #20 tabs 10/18/24 tablet Allergies Allergy/AdvReac Type Severity Reaction Status Date / Time atorvastatin (From Lipitor) Allergy Severe Swelling Verified 10/21/24 23:15 of Lip/Tongue/Throat cefuroxime Allergy Severe RASH/ Verified 10/21/24 23:15 DIARRHEA cephalexin Allergy Severe RASH/NAUSEA Verified 10/21/24 23:15 /VOMITING Cephalosporins Allergy Severe Rash Verified 10/21/24 23:15 ciprofloxacin Allergy Severe Rash Verified 10/21/24 23:15 erythromycin base Allergy Severe Rash Verified 10/21/24 23:15 nitrofurantoin Allergy Severe Rash Verified 10/21/24 23:15 Sulfa (Sulfonamide Allergy Severe Rash Verified 10/21/24 23:15 Antibiotics) NITRATE Allergy Severe Rash Uncoded 10/21/24 23:15 Review of Systems Review of Systems Systems Reviewed: All systems reviewed, normal except as documented ED Exam Narrative Physical exam: As noted in HPI. Course Quality Measures none Orders Category Date Time Status CT Screening NOW Care 10/22/24 00:50 Active Saline [Insert IV] NOW Care 10/22/24 00:[address] angio UE RT Stat Exams 10/22/24 00:50 Taken BMP [Basic Metabolic Panel] Stat Lab 10/22/24 00:55 Completed BNP [B-Type Natriuretic Peptide] Stat Lab 10/22/24 00:55 Completed Blood Culture (Lab) Stat Lab 10/22/24 01:02 Received CBC Stat Lab 10/22/24 00:55 Completed CRP [C-Reactive Protein] Stat Lab 10/22/24 00:55 Completed ESR [Sed Rate (ESR)] Stat Lab 10/22/24 00:55 Completed Lactate (Lactic Acid) Stat Lab 10/22/24 00:55 Completed Liver Panel Stat Lab 10/22/24 00:55 Completed Magnesium Stat Lab 10/22/24 00:55 Completed PT [Prothrombin Time with INR] Stat Lab 10/22/24 00:55 Completed PTT [Partial Thromboplastin Time] Stat Lab 10/22/24 00:55 Completed Procalcitonin Stat Lab 10/22/24 00:55 Completed Vital Signs Vital signs: Vital Signs Temperature 98.4 F 10/21/24 23:50 Pulse Rate 81 10/21/24 23:50 Respiratory Rate 19 10/21/24 23:50 Blood Pressure 157/70 H 10/21/24 23:50 Pulse Oximetry (%) 95 10/21/24 23:50 Oxygen Delivery Method Room Air 10/21/24 23:50 Recheck / Abnormal Lab / Rx MDM Narrative MDM Narrative:: 84yo female with a history of ESRD (on HD, , Dr. Ramirez), ischemic CVA, HTN, and gout presents to the ED with increasing ballooning at the site of her dialysis shunt in her right arm. Started about 6 hours ago. No fever, chills. No other complaints. Patient data External records reviewed:: [facility] previous records (Per chart review, patient was seen here on 09/30/24 for flank pain.) Clinical information provided by:: patient Social determinants that could affect healthcare access:: none Patient has the following chronic illnesses:: ESRD (on HD, , Dr. 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 - Questionable small thrombus within. Blood tests remarkable for ESR 89, Creatinine 5.9, Magnesium 3.4, BNP 315, Procalcitonin 1.46, CRP 33.2. Medications / Prescriptions Medications or Prescriptions considered but not ordered:: none Medication administrations:: none Consultations Consultation(s) initiated? (list below): Yes Consultation #1 (Physician, Specialty, Details): I discussed the case with patient's project controls specialist, Dr. Ramirez. About the presentation and exam and diagnostics and treatments here. And possible need of further care in the hospital. Recommended transfer to another facility with vascular surgery. I discussed the case with Dr. Perez, vascular surgeon at [facility]. About the presentation and exam and diagnostics and treatments here. And need of further care in the hospital there. Will accept the patient. Diagnosis Recheck Differential Diagnosis: other (Vascular graft aneurysm, vascular graft thrombus, vascular graft cellulitis, vascular graft abscess, sepsis) Most likely diagnosis given after review of the tests above:: Vascular graft aneurysm Admission Indicated Admission indicated?: not indicated Explain why admission is indicated or not indicated:: No vascular surgery service available here at this facility. Admission Request Was there a request for admission?: No Disposition Plan Disposition Plan: Transfer Discharge Plan Plan Patient Disposition: [facility] Care [facility] Pt Being Transferred to: [facility] Service Needed for Transfer: Vascular Surgery Prescriptions/Referrals Prescriptions/Med Rec: No Action primidone 50 MG tablet 250 mg PO QDAY Qty: 0 Rx Instructions: 100MG X1 IN AM, X2 IN THE PM amlodipine [Norvasc] 5 MG tablet 10 mg PO QDAY Qty: 0 allopurinol [Zyloprim] 100 MG tablet 100 mg PO QDAY Qty: 0 montelukast [Singulair] 10 MG tablet 10 mg PO QAM Qty: 0 fluticasone propionate 50 mcg/actuation [place],Suspension 2 spray NASAL BID Qty: 0 Rx Instructions: 2 SPRAYS AT NIGHT hydralazine 50 mg tablet 50 mg PO BID Rx Instructions: Only on the mornings when she does not go to dialysis. acetaminophen-codeine 300-30 mg tablet 1 tab PO TID PRN (Reason: pain) Qty: 20 0RF aspirin 81 mg Tablet,Delayed Release (Dr/Ec) 81 mg PO QDAY Praluent Pen 75 mg/mL pen injector 75 mg SUBCUT UD Patient Comments: INJECT 1 DOSE UNDER THE SKIN EVERY 2 WEEKS Rx Instructions: Every two weeks carvedilol 25 mg Tablet 25 mg PO BID Rx Instructions: must administer with a meal/food prednisone 50 mg tablet 50 mg PO QDAY Qty: 5 0RF albuterol sulfate 90 mcg/actuation HFA aerosol inhaler 2 inh inhalation Q6H PRN (Reason: shortness of breath or wheezing) Qty: 8.5 0RF Referrals: Brooklyn Ramon MD [Primary Care Provider] - In 1 week Problem List Clinical Impression: Aneurysm of vascular graft Patient/Caregiver Discharge Instructions Print Language: Bulgarian Stand Alone Forms: Adri Award Info., Patient Portal Info Letter
--- NOTE | 2024-10-22 00:50 | XR_ITS ---
Examination: CTA right upper extremity with intravenous contrast 2-D reconstructions 3-D reconstructions, vascular Date and time of exam: October 22, 2024 0156 hours INDICATIONS: Swelling redness and pain involving the dialysis site today CTDI: vol (mGy) 8.07 DLP: (mGycm) 20 Technique: Multiple 1.5 mm slice thickness axial images through the right upper extremity post intravenous administration 100 cc Isovue 370 2-D sagittal and coronal reconstructions. 3-D angiographic renderings, 3-D volume renderings, 3D post processing, vascular maximum intensity projections obtained. . Low dose protocols were performed. One or more of the following dose reduction techniques were used; automated exposure control, adjustment of the mA and/or KV according to patient size, use of iterative reconstruction technique. 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
[2024-10-22 01:06] LABS: Lactate (Lactic Acid) 0.9 mMol/L (0.4-2.0)
[2024-10-22 01:11] LABS: Basophils % (Auto) 0 % (0-2.5); Eosinophils # (Auto) 0.2 Thou/mm3 (0.0-0.5); Eosinophils % (Auto) 2 % (0-10); Hematocrit 33.9 % (36.0-46.0); Hemoglobin 11.6 g/dL (12.0-16.0); Immature Granulocytes % (Auto) 1 % (0-0); Immature Granulocytes Auto 0.11 Thou/mm3 (0.00-0.00); Lymphocytes % (Auto) 10 % (10-50); Mean Corpuscular HGB Conc 34.2 g/dl (31.0-37.0); Mean Corpuscular Hemoglobin 35.5 pg (25.0-35.0); Mean Corpuscular Volume 104 fL (80-100); Monocytes # (Auto) 1.1 Thou/mm3 (0.0-0.8); Monocytes % (Auto) 11 % (0-12); Neutrophils # (Auto) 7.7 Thou/mm3 (1.8-7.7); Neutrophils % (Auto) 76 % (37-80); Nucleated Red Blood Cell % 0 /100 WBC (0); Platelet Count 157 Thou/mm3 (140-440); RDW Standard Deviation 58.4 fL (36.4-46.3); Red Blood Count 3.27 Miln/mm3 (4.00-5.20); White Blood Count 10.2 Thou/mm3 (3.6-11.0)
[2024-10-22 01:24] LABS: Sed Rate (ESR) 89 mm/hr (0-30)
[2024-10-22 01:32] LABS: Partial Thromboplastin Time 36.6 Seconds (22.0-36.0); Prothrombin Time 10.8 Seconds (9.0-12.2)
[2024-10-22 01:39] LABS: Alanine Aminotransferase 81 U/L (10-49); Albumin, Serum 3.9 gm/dL (3.4-4.8); Alkaline Phosphatase 218 U/L (46-116); Anion Gap 11 (7-16); Aspartate Amino Transferase 29 U/L (0-34); BUN/Creatinine Ratio 9 Ratio (12-20); Bilirubin,Direct 0.2 mg/dL (0.0-0.3); Bilirubin,Total 0.3 mg/dL (0.3-1.2); Blood Urea Nitrogen 56 mg/dL (9-23); Carbon Dioxide 27.7 mMol/L (20.0-31.0); Chloride 98 mMol/L (98-107); Creatinine (Component) 5.9 mg/dL (0.6-1.3); Estimated Creatinine Clearance 5.4 mL/min (>60); Glucose 101 mg/dL (74-106); Magnesium 3.4 mg/dL (1.6-2.6); Osmolality,Calculated 289 (275-295); Potassium 5.1 mMol/L (3.4-5.1); Procalcitonin 1.46 ng/ml (0.0-0.49); Sodium 137 mMol/L (136-145); Total Protein 6.4 gm/dL (5.7-8.2); eGFR 7 See Note
[2024-10-22 01:41] LABS: B-Type Natriuretic Peptide 315 pg/mL (0-100)
[2024-10-22 01:44] LABS: C-Reactive Protein 33.2 mg/dL (0.0-0.9)
--- NOTE | 2024-10-22 03:22 | PRELIM_ITS ---
CT angiogram of right upper extremity with intravenous contrast (axial sections with sagittal and coronal reformats) October 22, 2024 at 0156 hours Clinical History: Dialysis shunt aneurysm. Comparison: None. Findings: The subclavian, axillary and brachial arteries are well-opacified and patent. No evidence of arterial occlusion or thrombus. The radial and ulnar arteries are patent. 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 Questionable small thrombus within (axial image 198 of 491). 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 Questionable small thrombus within (axial image 198 of 491), consider correlation with Doppler ultrasound. Discussion Details: Results verbally communicated to : Dr. Nick at 03:16 AM 10/22/2024 Report Electronically Signed By: Omi Ruiz 10/22/2024 3:22:02 AM [EST]
--- NOTE | 2024-10-22 03:43 | PC.NURSE ---
PT ACCEPTED ER TO ER TO [facility] BY DR. GREENE FOR VASCULAR. CALL REPORT TO TATY AT [phone]. INCLUDE ALL CLINICALS AND IMAGING ON DISK. SPOKE WITH DRE.
[2024-10-22 04:07] VITALS: BP 150/70; PULSE 85; RESP 19; TEMP 37; O2SAT 94
--- NOTE | 2024-10-22 05:00 | PC.NURSE ---
Report given to [facility] regarding Patient. All questions and concerns addressed. Patient notified. Family updated. Pts son to take her wheelchair and belongings home.
== END 2024-10-22 05:07 | disposition short-term general hospital (02) ==
PROVIDERS: Emergency Provider Emergency Medicine; PCP Internal Medicine
DX: T82.898A Other specified complication of vascular prosthetic devices, implants and grafts, initial encounter (principal); Y84.1 Kidney dialysis as the cause of abnormal reaction of the patient, or of later complication, without mention of misadventure at the time of the procedure
CPT/HCPCS: 36415; 73206; 80048; 80076; 83605; 83735; 83880; 84145; 85025; 85610; 85652; 85730; 86140; 87040; 99285; A4649; Q9967

== ENCOUNTER 2024-11-24 08:08 | Emergency (ER) | payer MEDICARE, BC, SELFPAY ==
[2024-11-24] VITALS (8 sets, daily range): BP systolic 154–204; BP diastolic 74–96; PULSE 87–106; RESP 15–20; TEMP 36.7–37.6; O2SAT 94–98; BMI 26.2
--- NOTE | 2024-11-24 08:34 | EKG_ITS ---
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
--- NOTE | 2024-11-24 08:35 | PC.NURSE ---
PATIENT BIBA FROM HOME FOR ABDOMINAL PAIN AND LEFT SIDE FLANK PAIN THAT HAS BEEN GOING ON FOR A COUPLE OF DAYS. PATIENT STATES SHE STILL PRODUCED URINE. PATIENT DENIES FEVER OR CHILLS. VITALS ARE STABLE. PATIENT HAS HIGH BLOOD PRESSURE, DR BLUM AT BEDSIDE AWARE. PATIENT DENIES SHORTNESS OF BREATH OR CHEST PAIN.
--- NOTE | 2024-11-24 08:41 | PD.EDABDPN ---
ED Abdominal Pain RME/HPI General Chief Complaint: Abdominal Pain Stated complaint: abd pain Time seen by provider: 11/24/24 08:25 Arrival date/time: 11/24/24 08:08 Limitations: no limitations RME / HPI RME / HPI narrative: DR. KILPATRICK MAIN ED EVALUATION: 84-year-old female with past medical history of end-stage renal disease on dialysis and hypertension presents to the Emergency Department with complaint of intermittent anterior left abdominal and left flank pain radiating to the back and mid-abdomen. Patient denies nausea, vomiting, or other symptoms. She reports mild runny nose for the past couple of days and a little diarrhea for the last few days. No known recent infectious symptoms or acute changes noted. She follows with core feeder Dr. Ramirez and receives dialysis at . No history of diabetes mellitus. Current medications include amlodipine 10 mg, aspirin 81 mg, hydralazine 50 mg twice daily, and carvedilol 25 mg. Related Data Home Medications ?Medication ?Instructions ?Recorded ?Confirmed allopurinol 100 mg tablet 100 mg PO QDAY #0 tabs 09/13/13 09/15/24 (Zyloprim) amlodipine 5 mg tablet (Norvasc) 10 mg PO QDAY #0 tabs 09/13/13 09/15/24 fluticasone propionate 50 2 spray NASAL BID ##0 09/13/13 09/15/24 mcg/actuation nasal spray,suspension montelukast 10 mg tablet 10 mg PO QAM #0 tabs 09/13/13 09/15/24 (Singulair) primidone 50 mg tablet 250 mg PO QDAY #0 tabs 09/13/13 09/15/24 alirocumab 75 mg/mL subcutaneous 75 mg subcut UD 08/19/22 09/15/24 pen injector (Praluent Pen) aspirin 81 mg tablet,delayed 81 mg PO QDAY 08/19/22 09/15/24 release hydralazine 50 mg tablet 50 mg PO BID 09/12/22 09/15/24 carvedilol 25 mg tablet 25 mg PO BID 03/05/24 09/15/24 Previous Rx's ?Medication ?Instructions ?Recorded albuterol sulfate 90 mcg/actuation 2 inh inhalation Q6H PRN shortness 10/10/24 aerosol inhaler of breath or wheezing #8.5 grams prednisone 50 mg tablet 50 mg PO QDAY #5 tabs 10/10/24 acetaminophen 300 mg-codeine 30 mg 1 tab PO TID PRN pain #20 tabs 10/18/24 tablet bisacodyl 10 mg rectal suppository 10 mg RI QDAY PRN constipation #3 11/24/24 (Dulcolax (bisacodyl)) ea levofloxacin 750 mg tablet 750 mg PO QDAY #5 tabs 11/24/24 polyethylene glycol 3350 17 gram 17 g PO QDAY #14 ea 11/24/24 oral powder packet (Miralax) Allergies Allergy/AdvReac Type Severity Reaction Status Date / Time atorvastatin (From Lipitor) Allergy Severe Swelling Verified 11/24/24 08:20 of Lip/Tongue/Throat cefuroxime Allergy Severe RASH/ Verified 11/24/24 08:20 DIARRHEA cephalexin Allergy Severe RASH/NAUSEA Verified 11/24/24 08:20 /VOMITING Cephalosporins Allergy Severe Rash Verified 11/24/24 08:20 ciprofloxacin Allergy Severe Rash Verified 11/24/24 08:20 erythromycin base Allergy Severe Rash Verified 11/24/24 08:20 nitrofurantoin Allergy Severe Rash Verified 11/24/24 08:20 Sulfa (Sulfonamide Allergy Severe Rash Verified 11/24/24 08:20 Antibiotics) NITRATE Allergy Severe Rash Uncoded 10/21/24 23:15 Review of Systems Review of Systems Systems Reviewed: All systems reviewed, normal except as documented Past Medical History Past Medical History NEUROLOGIC: Positive Neurological Disorders and Transient Ischemic Attacks (TIA) CARDIAC: Positive Hypercholesterolemia, Valvular Heart Disease and Hypertension RESPIRATORY: Positive Asthma GASTROINTESTINAL: Positive Gastrointestinal Disorders, Gall Bladder Disease (CHOLESYTECTOMY), Colitis and Hiatal Hernia GENITOURINARY: Positive Genitourinary Disorders, Renal Disease (KIDNEY FAILURE ON DIALYSIS) and Dialysis (MONDAY, MONDAY, MON) REPRODUCTIVE: Positive Previous Pregnancies MUSCULOSKELETAL: Positive Musculoskeletal Disorders, Arthritis and Gout HEMATOLOGIC: Positive Anemia PSYCHO/SOCIAL: Positive Depression and Anxiety OTHER HISTORY: Positive Hospitalization, Shingles, Falls, Chicken Pox, Measles and Mumps Family History FAMILY HISTORY: Positive Family Respiratory Disorders, Family Cardiac Disorders and Family Cancer Surgical History SURGICAL: Positive Ear Surgery, Tonsillectomy and Hysterectomy Social History SMOKING STATUS: Never smoker SUBSTANCE USE: does not use ALCOHOL: Never ED Exam General Limitations: Present no limitations General appearance: Present alert, in no apparent distress and other (looks chronically ill) Head Head exam: Present atraumatic, normocephalic and normal inspection Eye Eye exam: Present normal appearance, PERRL and EOMI ENT ENT exam: Present normal exam, normal oropharynx and mucous membranes moist Neck Neck exam: Present normal inspection, full ROM and trachea midline Chest Chest inspection: Present symmetric chest wall rise and other (right-sided chest dialysis port in place with surrounding ecchymosis ) Respiratory Respiratory exam: Present normal lung sounds bilaterally Cardiovascular Cardiovascular exam: Present regular rate, normal rhythm and normal heart sounds Abdominal Exam Abdominal exam: Present tenderness (anterior left abdominal and left flank tenderness) and normal bowel sounds Extremities Exam Extremities exam: Present normal inspection and full ROM Back Exam Back exam: Present normal inspection and full ROM Neurological Exam Neurological exam: Present alert, oriented X3 and CN II-XII intact Psychiatric Psychiatric exam: Present normal affect and normal mood Skin Skin exam: Present warm, dry, intact and normal color Course Quality Measures none Orders Category Date Time Status CT Screening NOW Care 11/24/24 08:42 Active EKG (ED ONLY) *Do not use* NOW Care 11/24/24 08:[address] abdomen pelvis w con Stat Exams 11/24/24 08:[address] lumbar spine wo con Stat Exams 11/24/24 09:53 Completed EKG (ED Only) Stat Exams 11/24/24 08:34 Draft EKG (ED Only) Urgent Exams 11/24/24 08:34 Ordered US abdomen limited Stat Exams 11/24/24 11:14 Completed CBC Stat Lab 11/24/24 08:31 Completed CMP [Comprehensive Metabolic Panel] Stat Lab 11/24/24 08:31 Completed Lipase Stat Lab 11/24/24 08:31 Completed Troponin I Stat Lab 11/24/24 08:31 Completed UA, C/S IF [Urinalysis, C/S if Indicated] Stat Lab 11/24/24 08:31 Completed Acetaminophen Tab [Tylenol Tab] Med 11/24/24 08:44 Discontinued 650 mg PO X1 ONE HYDROmorphone INJ [Dilaudid Inj] Med 11/24/24 11:00 Discontinued 0.5 mg IVP X1 ONE Levofloxacin/D5w 750Mg Ivpb [Levaquin Ivpb] Med 11/24/24 11:15 Discontinued 750 mg in 150 ml IV NOW Magnesium Citrate Liqd [Citrate of Magnesia Liqd] Med 11/24/24 15:49 Discontinued 150 ml PO X1 ONE amLODIPine BESYLATE [Norvasc] Med 11/24/24 08:43 Discontinued 10 mg PO X1 ONE hydrALAZINE HCL [Apresoline] Med 11/24/24 08:43 Discontinued 50 mg PO X1 ONE Vital Signs Vital signs: Vital Signs Temperature 98.1 F 11/24/24 08:11 Pulse Rate 87 11/24/24 08:11 Respiratory Rate 18 11/24/24 08:11 Blood Pressure 195/82 H 11/24/24 08:11 Pulse Oximetry (%) 98 11/24/24 08:11 Oxygen Delivery Method Room Air 11/24/24 08:11 Abdominal Pain MDM MDM Narrative MDM Narrative:: I, Lakia Kong am scribing for and in the presence of Dr. Kilpatrick. Patient is a 84-year-old female with medical history notable for hypertension complicated by end-stage renal disease, dialysis dependence close Monday, send Emergency Department concerns for left flank pain that radiates anteriorly to her lower abdomen. Vital signs and exam as listed. Concern for pyelonephritis, urolithiasis, bowel obstruction, constipation among others. Ordered labs, EKG, CT of the abdomen pelvis with contrast as well as offer medication for symptom relief. Patient had not taken her blood pressure medications earlier this day and so gave her 2 of her home blood pressure medications. Labs with evidence of leukocytosis 12.7, no left shift. No acute electrolyte abnormality, patient has a history of chronic kidney disease ESRD. No significant transaminitis troponin not elevated, lipase normal, urinalysis without evidence of infection. CT abdomen pelvis with evidence of constipation, will treat. An enlarged common bile duct 9 mm. Ordered right upper quadrant ultrasound. Right upper quadrant ultrasound with evidence of fatty liver, no stone in the common bile duct, common bile duct measures 8 mm which is within the appropriate diameter range for a person of this age. Patient also has severe left hydronephrosis and findings concerning for cystitis without renal calculi. Given findings on CT will treat for urinary tract infection. CT lumbar spine with osteopenia, mod chronic osteoporotic compression T11. Patient without any focal neurodeficits. Sensation intact in the perineum, strength intact bilateral lower extremities as well as sensation On reevaluation, patient hemodynamically stable, not in distress. Patient data External records reviewed:: [facility] previous records Clinical information provided by:: patient Social determinants that could affect healthcare access:: none Patient has the following chronic illnesses:: End-stage renal disease on dialysis and hypertension. She follows with core feeder Dr. Ramirez and receives dialysis at [facility]. No history of diabetes mellitus. Current medications include amlodipine 10 mg, aspirin 81 mg, hydralazine 50 mg twice daily, and carvedilol 25 mg. How is presenting disease/condition affected by chronic disease/condition?: exacerbated by Evaluation data The following diagnostics were reviewed and interpreted by me:: lab results, radiology exam(s) and EKG tracing(s) Lab and/or radiology exams considered but not ordered:: none Interpretation Summary: My interpretation: EKG performed at 0834 hours, atrial fibrillation, irregular rhythm, rate 87, non specific ST-T wave changes, no cardiac alert Procedure(s): CT abdomen pelvis w [facility] Accession Number(s): [id number] cc: Andrea Carter MD; Otoniel Turcios MD; Elisa Kilpatrick MD~ Examination: CT abdomen with intravenous contrast CT pelvis with intravenous contrast 2-D coronal reconstructions 2-D sagittal reconstructions Date and time of exam:November 24, 2024, 1008 hrs. Comparison October 18, 2024 Indications: Abdominal pain and back pain beginning 3 days ago. CTDI: vol (mGy) 8.58 DLP: (mGycm) 455 Technique: Multiple axial sections of the abdomen and pelvis have been obtained. 64 slice high-resolution scanner used. 3 mm axial sections have been obtained, post intravenous injection 60 cc [id number] 2-D sagittal, coronal reconstructions obtained. Low dose protocols were performed. One or more of the following dose reduction techniques were used; automated exposure control, adjustment of the mA and/or KV according to patient size, use of iterative reconstruction technique. Findings: Mild intrahepatic biliary tract dilatation Absent gallbladder Enlarged common bile duct 9 mm no definite stones No splenic lesion Bilateral significant renal scar formation Severe left hydronephrosis, no ureteral calculi Wall thickening of the ureter and left pelvicalyceal system Aorta normal size No pericecal inflammatory change No bowel obstruction No diverticulitis No pelvic mass Urinary bladder wall thickening up to 6 mm Impression: Enlarged common bile duct 9 mm, recommend hepatobiliary sonography follow-up Severe left hydronephrosis, findings consistent with left urinary tract infection Cystitis, no ureteral calculi Dictated By: Andrae Carter MD Procedure(s): CT lumbar spine con Accession Number(s): [id number] cc: Andrea Carter MD; Otoniel Turcios MD; Elisa Kilpatrick MD~ Examination: CT lumbar spine, without contrast. 2-D sagittal reconstructions. 2-D coronal reconstructions. 3-D reconstructions. Date and time of exam:November 24, 2024, 1008 hrs. Indications: Generalized back pain beginning 3 days ago CTDI: vol (mGy):19.7 DLP: (mGycm):520 Technique: Multiple 1.25 mm axial sections of the lumbar spine without intravenous contrast have been obtained. 2-D sagittal and coronal reconstructions have been obtained. 3-D reconstructions have been obtained. Low dose protocols were performed. One or more of the following dose reduction techniques were used; automated exposure control, adjustment of the mA and/or KV according to patient size, use of iterative reconstruction technique. Findings: Severe osteopenia No lumbar fracture Chronic compression T11 L5-S1 no disc protrusion L4-L5 no disc protrusion L3-L4 no disc protrusion L2-L3 no disc protrusion L1-L2 no disc protrusion Impression: Severe osteopenia Moderate chronic osteoporotic compression T11 No lumbar fracture No significant acquired lumbar spinal stenosis Dictated By: Andrea Carter MD Medications / Prescriptions Medications or Prescriptions considered but not ordered:: none Medication administrations:: Medication Administration History Discontinued Medications Acetaminophen (Acetaminophen 325 Mg Tablet) 650 mg PO X1 ONE Stop: 11/24/24 08:45 Last Admin: 11/24/24 09:05 Dose: 650 mg Documented By: MILY Amlodipine Besylate (Amlodipine Besylate 5 Mg Tablet) 10 mg PO X1 ONE Stop: 11/24/24 08:44 Last Admin: 11/24/24 09:05 Dose: 10 mg Documented By: MILY Hydralazine HCl (Hydralazine Hcl 25 Mg Tablet) 50 mg PO X1 ONE Stop: 11/24/24 08:44 Last Admin: 11/24/24 09:05 Dose: 50 mg Documented By: MILY Hydromorphone HCl (Hydromorphone Inj 2 Mg/Ml Vial) 0.5 mg IVP X1 ONE Stop: 11/24/24 11:01 Last Admin: 11/24/24 11:08 Dose: 0.5 mg Documented By: MILY Levofloxacin/Dextrose (Levaquin Ivpb) 750 mg in 150 mls @ 100 mls/hr IV NOW ONE Stop: 11/24/24 12:44 Last Infusion: 11/24/24 12:59 Dose: Infused Documented By: Admin: 11/24/24 11:29 Dose: 100 mls/hr Documented By: MILY Magnesium Citrate (Magnesium Citrate 300 Ml Btl) 150 ml PO X1 ONE Stop: 11/24/24 15:50 see above Consultations Consultation(s) initiated? (list below): No Diagnosis Differential diagnosis abdominal pain: other (nephrolithiasis, pyelonephritis, diverticulitis, musculoskeletal pain, and dialysis-associated abdominal discomfort) Most likely diagnosis given after review of the tests above:: Cystitis, constipation Admission Indicated Admission indicated?: not indicated Admission Request Was there a request for admission?: No Disposition Plan Disposition Plan: Discharge Discharge Attestation Discharge Attestation: The patient and all family members were given an opportunity to ask questions and understood the discharge instructions. Discharge instructions specifically effects, indications for sooner follow up or return to the emergency department, and the expected course of current diagnosis. Patient condition: Stable Critical Care Time Critical Care Time Critical Care Time: Yes Total Critical Care Time (min.): 40 Attestation: The high probability of sudden, clinically significant deterioration in the patient?s condition required the highest level of my preparedness to intervene urgently. The services I provided to this patient were to treat and/or prevent clinically significant deterioration. Services included the following: chart data review, reviewing nursing notes and/or old charts, documentation time, product support consultant collaboration regarding findings and treatment options, medication orders and management, direct patient care, vital sign assessments and ordering, interpreting and reviewing diagnostic studies and lab tests. Aggregate critical care time includes only time during which I was engaged in work directly related to the patient?s care, as described above, whether at bedside or elsewhere in the Emergency Department. It did not include time spent performing other reported procedures or the services of residents, students, nurses or physician assistants. Discharge Plan Plan Patient Disposition: Home w/HOME HEALTH Patient condition on transfer: Stable Prescriptions/Referrals Prescriptions/Med Rec: New levofloxacin 750 mg tablet 750 mg PO QDAY Qty: 5 0RF bisacodyl [Dulcolax (bisacodyl)] 10 mg suppository 10 mg RI QDAY PRN (Reason: constipation) Qty: 3 0RF polyethylene glycol 3350 [Miralax] 17 gram powder in packet 17 g PO QDAY Qty: 14 0RF No Action primidone 50 MG tablet 250 mg PO QDAY Qty: 0 Rx Instructions: 100MG X1 IN AM, X2 IN THE PM amlodipine [Norvasc] 5 MG tablet 10 mg PO QDAY Qty: 0 allopurinol [Zyloprim] 100 MG tablet 100 mg PO QDAY Qty: 0 montelukast [Singulair] 10 MG tablet 10 mg PO QAM Qty: 0 fluticasone propionate 50 mcg/actuation [place]hen[place],Suspension 2 spray NASAL BID Qty: 0 Rx Instructions: 2 SPRAYS AT NIGHT hydralazine 50 mg tablet 50 mg PO BID Rx Instructions: Only on the mornings when she does not go to dialysis. acetaminophen-codeine 300-30 mg tablet 1 tab PO TID PRN (Reason: pain) Qty: 20 0RF aspirin 81 mg Tablet,Delayed Release (Dr/Ec) 81 mg PO QDAY Praluent Pen 75 mg/mL pen injector 75 mg SUBCUT UD Patient Comments: INJECT 1 DOSE UNDER THE SKIN EVERY 2 WEEKS Rx Instructions: Every two weeks carvedilol 25 mg Tablet 25 mg PO BID Rx Instructions: must administer with a meal/food prednisone 50 mg tablet 50 mg PO QDAY Qty: 5 0RF albuterol sulfate 90 mcg/actuation HFA aerosol inhaler 2 inh inhalation Q6H PRN (Reason: shortness of breath or wheezing) Qty: 8.5 0RF Referrals: Otoniel Turcios MD [Primary Care Provider] - In 1 week Problem List Clinical Impression: Constipation, Urinary tract infection Patient/Caregiver Discharge Instructions Education Materials: ED Constipation (Adult), ED CYSTITIS Female Adult Additional Instructions: Your CT showed that you are constipated and that you have thickening of the bladder concerning for urinary tract infection. We are sending home a course of antibiotics. Your ultrasound of your abdomen shows fatty liver. You also have an old compression fracture of T11. You also have osteopenia. Please return to the emergency department if you worsening symptoms or new symptoms of concern Print Language: [place]er Stand Alone Forms: Adri Award Info., Patient Portal Info Letter
[2024-11-24] MEDS: ACETAMINOPHEN 325 MG TABLET 650 MG PO (09:05)
[2024-11-24 09:09] LABS: Collection Type, Urine Catheter
[2024-11-24 09:16] LABS: Basophils # (Auto) 0.0 Thou/mm3 (0.0-0.2); Basophils % (Auto) 0 % (0-2.5); Eosinophils # (Auto) 0.2 Thou/mm3 (0.0-0.5); Eosinophils % (Auto) 1 % (0-10); Hematocrit 39.9 % (36.0-46.0); Hemoglobin 13.0 g/dL (12.0-16.0); Immature Granulocytes Auto 0.07 Thou/mm3 (0.00-0.00); Lymphocytes # (Auto) 1.0 Thou/mm3 (1.0-4.8); Lymphocytes % (Auto) 8 % (10-50); Mean Corpuscular HGB Conc 32.6 g/dl (31.0-37.0); Mean Corpuscular Hemoglobin 34.3 pg (25.0-35.0); Mean Corpuscular Volume 105 fL (80-100); Monocytes # (Auto) 1.5 Thou/mm3 (0.0-0.8); Monocytes % (Auto) 12 % (0-12); Neutrophils # (Auto) 9.9 Thou/mm3 (1.8-7.7); Neutrophils % (Auto) 78 % (37-80); Nucleated Red Blood Cell # 0.00 Thou/mm3 (0.00-0.00); Nucleated Red Blood Cell % 0 /100 WBC (0); Platelet Count 156 Thou/mm3 (140-440); RDW Standard Deviation 76.4 fL (36.4-46.3); Red Blood Count 3.79 Miln/mm3 (4.00-5.20); White Blood Count 12.7 Thou/mm3 (3.6-11.0)
[2024-11-24 09:29] LABS: Bilirubin,Urine Negative (Negative); Blood,Urine Negative (Negative); Clarity,Urine Clear (Clear/Hazy); Color,Urine Lt-Yellow (Lt Yel-Yel); Culture Indicated,Urine Not Indicated; Glucose, Urine Negative (Negative); Hyaline Casts,Urine < 1 /hpf (0-1); Ketones,Urine Negative (Negative); Leukocyte Esterase,Urine Negative (Negative); Nitrite,Urine Negative (Negative); PH,Urine 8.5 (5.0-7.0); Protein,Urine 3+ (Neg - Trace); RBC,Urine 1 /hpf (0-3); Specific Gravity,Urine 1.011 (1.001-1.035); Squamous Epithelial Cell,Urine 1 /hpf (0-5); Urobilinogen,Urine Negative mg/dL (0.0-1.0); WBC,Urine 1 /hpf (0-5)
[2024-11-24 09:40] LABS: Alanine Aminotransferase 9 U/L (10-49); Albumin, Serum 4.4 gm/dL (3.4-4.8); Albumin/Globulin Ratio 1.6 (1.2-2.2); Alkaline Phosphatase 111 U/L (46-116); Anion Gap 12 (7-16); Aspartate Amino Transferase 18 U/L (0-34); BUN/Creatinine Ratio 7 Ratio (12-20); Bilirubin,Total 0.6 mg/dL (0.3-1.2); Blood Urea Nitrogen 21 mg/dL (9-23); Calcium 9.9 mg/dL (8.3-10.6); Calcium (Corrected) 9.9 mg/dL (8.5-10.1); Carbon Dioxide 25.5 mMol/L (20.0-31.0); Chloride 101 mMol/L (98-107); Creatinine (Component) 3.0 mg/dL (0.6-1.3); Estimated Creatinine Clearance 10.7 mL/min (>60); Globulin 2.7 gm/dL (2.3-3.5); Glucose 89 mg/dL (74-106); Lipase 23 U/L (12-53); Osmolality,Calculated 277 (275-295); Potassium 4.6 mMol/L (3.4-5.1); Sodium 138 mMol/L (136-145); Total Protein 7.1 gm/dL (5.7-8.2); Troponin I < 0.020 ng/mL (0.0-0.045); eGFR 15 See Note
--- NOTE | 2024-11-24 09:53 | XR_ITS ---
Examination: CT lumbar spine, without contrast. 2-D sagittal reconstructions. 2-D coronal reconstructions. 3-D reconstructions. Date and time of exam:November 24, 2024, 1008 hrs. Indications: Generalized back pain beginning 3 days ago CTDI: vol (mGy):19.7 DLP: (mGycm):520 Technique: Multiple 1.25 mm axial sections of the lumbar spine without intravenous contrast have been obtained. 2-D sagittal and coronal reconstructions have been obtained. 3-D reconstructions have been obtained. Low dose protocols were performed. One or more of the following dose reduction techniques were used; automated exposure control, adjustment of the mA and/or KV according to patient size, use of iterative reconstruction technique. Findings: Severe osteopenia No lumbar fracture Chronic compression T11 L5-S1 no disc protrusion L4-L5 no disc protrusion L3-L4 no disc protrusion L2-L3 no disc protrusion L1-L2 no disc protrusion Impression: Severe osteopenia Moderate chronic osteoporotic compression T11 No lumbar fracture No significant acquired lumbar spinal stenosis
[2024-11-24] MEDS: HYDROmorphone INJ 2 MG/ML VIAL 0.5 MG IVP (11:08)
--- NOTE | 2024-11-24 11:14 | XR_ITS ---
Examination: Abdomen sonogram, Limited Date and time of exam: November 24, 2024 1127 hrs. Indications: Left-sided abdominal pain this week Technique: Real-time alvarado scale transabdominal sonographic images of the upper abdomen obtained. Findings: Absent gallbladder. Common bile duct 0.8 cm no stones Pancreatic head 2.1 cm Liver 15.6 cm irregular contour fatty infiltration no focal liver lesions Normal hepatopedal portal venous flow. Patent IVC Impression: No common bile duct stones Suspect primary hepatocellular disease, no focal liver lesions.
[2024-11-24] MEDS: LEVOFLOXACIN/D5W 750MG IVPB 750 MG/150 ML BAG 100 MG IV (11:29)
[2024-11-24] MEDS: MAGNESIUM CITRATE 300 ML BTL 150 ML PO (16:24)
== END 2024-11-24 16:56 | disposition home or self-care (01) ==
PROVIDERS: Emergency Provider Emergency Medicine; PCP Internal Medicine
DX: N30.90 Cystitis, unspecified without hematuria (principal); K59.00 Constipation, unspecified; M80.08XA Age-related osteoporosis with current pathological fracture, vertebra(e), initial encounter for fracture; K76.0 Fatty (change of) liver, not elsewhere classified; Z99.2 Dependence on renal dialysis; I12.0 Hypertensive chronic kidney disease with stage 5 chronic kidney disease or end stage renal disease; N18.6 End stage renal disease; E78.00 Pure hypercholesterolemia, unspecified; I38 Endocarditis, valve unspecified
CPT/HCPCS: 36415; 72131; 74177; 76705; 80053; 81001; 83690; 84484; 85025; 93005; 96365; 96375; 99284; A4649; J1171; J1956; Q9967; A9270

== ENCOUNTER → 2024-12-06 | Outpatient (CLI) | payer MEDICARE, BC, SELFPAY ==
[2024-12-06 08:36] LABS: Collection Type, Urine Clean Catch
[2024-12-06 10:07] LABS: Bilirubin,Urine Negative (Negative); Blood,Urine 2+ (Negative); Clarity,Urine Clear (Clear/Hazy); Color,Urine Lt-Yellow (Lt Yel-Yel); Glucose, Urine Negative (Negative); Ketones,Urine Negative (Negative); Leukocyte Esterase,Urine Positive (Negative); Nitrite,Urine Negative (Negative); PH,Urine 8.5 (5.0-7.0); Protein,Urine 2+ (Neg - Trace); RBC,Urine 11 /hpf (0-3); Specific Gravity,Urine 1.008 (1.001-1.035); Squamous Epithelial Cell,Urine 1 /hpf (0-5); Urobilinogen,Urine Negative mg/dL (0.0-1.0); WBC,Urine 16 /hpf (0-5)
[2024-12-06 10:20] LABS: Culture Indicated,Urine Yes
== END | disposition home or self-care (01) ==
LOC: SLDO 08:22
PROVIDERS: Referring Provider Internal Medicine; Visit Provider Internal Medicine
DX: I10 Essential (primary) hypertension (principal)
CPT/HCPCS: 81001; 87086

== ENCOUNTER → 2025-01-15 | Outpatient (CLI) | payer MEDICARE, BC, SELFPAY ==
[2025-01-15 11:15] LABS: Basophils # (Auto) 0.1 Thou/mm3 (0.0-0.2); Basophils % (Auto) 1 % (0-2.5); Eosinophils # (Auto) 0.4 Thou/mm3 (0.0-0.5); Eosinophils % (Auto) 6 % (0-10); Hematocrit 34.6 % (36.0-46.0); Hemoglobin 11.4 g/dL (12.0-16.0); Immature Granulocytes Auto 0.05 Thou/mm3 (0.00-0.00); Lymphocytes # (Auto) 1.4 Thou/mm3 (1.0-4.8); Lymphocytes % (Auto) 25 % (10-50); Mean Corpuscular HGB Conc 32.9 g/dl (31.0-37.0); Mean Corpuscular Hemoglobin 32.4 pg (25.0-35.0); Mean Corpuscular Volume 98 fL (80-100); Monocytes # (Auto) 0.7 Thou/mm3 (0.0-0.8); Monocytes % (Auto) 13 % (0-12); Neutrophils # (Auto) 3.2 Thou/mm3 (1.8-7.7); Neutrophils % (Auto) 55 % (37-80); Nucleated Red Blood Cell # 0.00 Thou/mm3 (0.00-0.00); Nucleated Red Blood Cell % 0 /100 WBC (0); Platelet Count 162 Thou/mm3 (140-440); RDW Standard Deviation 59.9 fL (36.4-46.3); Red Blood Count 3.52 Miln/mm3 (4.00-5.20); White Blood Count 5.8 Thou/mm3 (3.6-11.0)
[2025-01-15 11:35] LABS: Alanine Aminotransferase 21 U/L (10-49); Albumin, Serum 4.0 gm/dL (3.4-4.8); Alkaline Phosphatase 219 U/L (46-116); Anion Gap 11 (7-16); Aspartate Amino Transferase 19 U/L (0-34); BUN/Creatinine Ratio 7 Ratio (12-20); Bilirubin,Direct 0.1 mg/dL (0.0-0.3); Bilirubin,Total 0.3 mg/dL (0.3-1.2); Blood Urea Nitrogen 28 mg/dL (9-23); Calcium 9.5 mg/dL (8.3-10.6); Carbon Dioxide 28.1 mMol/L (20.0-31.0); Cardiac Risk Estimate 2.2 RATIO (3.7-5.6); Chloride 101 mMol/L (98-107); Cholesterol 105 mg/dL (132-200); Creatinine (Component) 4.3 mg/dL (0.6-1.3); Free T4 (Free Thyroxine) 1.14 ng/dL (0.89-1.76); Glucose 81 mg/dL (74-106); HDL Cholesterol 47 mg/dL (40-60); LDL Cholesterol,Calculated 31 mg/dL (0-130); Osmolality,Calculated 283 (275-295); Potassium 4.1 mMol/L (3.4-5.1); Sodium 140 mMol/L (136-145); Thyroid Stimulating Hormone 4.03 uIU/mL (0.55-4.78); Total Protein 6.2 gm/dL (5.7-8.2); Triglycerides 134 mg/dL (30-150); eGFR 10 See Note
== END | disposition home or self-care (01) ==
LOC: COPL 10:17
PROVIDERS: PCP Internal Medicine; Referring Provider Internal Medicine Cardiovascular Disease; Visit Provider Internal Medicine Cardiovascular Disease
DX: I10 Essential (primary) hypertension (principal); E78.2 Mixed hyperlipidemia; I20.9 Angina pectoris, unspecified
CPT/HCPCS: 36415; 80048; 80061; 80076; 84439; 84443; 85025